=== PATIENT | female | born 2000 | race Caucasian/White ===

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

== ENCOUNTER 2023-10-13 07:39 | Inpatient (IN) ==
[2023-10-13] MEDS ORDERED: OXYTOCIN 30 UNITS/NSS 30 UNITS/500 ML BAG IV PRN ×2 (08:24→17:19)
[2023-10-13] MEDS ORDERED: LIDOCAINE 1% LOCAL 20 ML VIAL INFIL PRN (08:24)
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
[2023-10-13] MEDS: LACTATED RINGER'S 1,000 ML IV PRN (08:57)
--- OUTSIDE RECORDS SUMMARY | 2023-10-13 08:59 | External Medical Summary | Summary of Care ---
Author Name Unknown Organization [facility] Address [address] [place] [address] Phone [phone] Care Team Providers Care Patient Clerical Assistant Name Role Phone Kate Garces MD Primary Care Prov ider Reason for Visit * Reason Comments eRx-Medication Refill Encounter Details Date Type Department Care Team (Late st Contact Info) Description 10/09/2023 Refill Family Medicine [address] [phone] Mer Sanchez PA-C [address] [place] [address] [place] [id number] Current mild episode of major depressive disorder, unspecified whether recurrent (HCC) Allergies No known active allergiesdocumented as of this encounter (statuses as of 10/12/2023) Medications Medication Sig Dispensed Refills Start Date End Date Status Acetaminophen 500 MG Oral Tablet (Tylenol) Take 2 Tablets by mouth every 6 hours as needed for Pain, Moderate. 100 Tablet 07/08/2021 Active 6.75-0.2 MG Oral Tablet Take by mouth. Active Butenafine HCl 1 % External CreamIndications:T inea cruris Apply to groin once daily 30 g 03/03/2023 Active Iron-Vitamin C 65-125 MG Oral Tablet (Vitron C)Indications:Ante anemia complicating Take 1 Tablet by mouth in the morning and 1 Tablet before bedtime. 60 Tablet 3 06/29/2023 Active Vitamin B-12 1000 MCG Oral Tablet (Cyanocobalamin)In dications:Antepart um anemia complicating Take 1 Tablet by mouth in the morning. 30 Tablet 3 07/24/2023 Active buPROPion HCl 75 MG Oral Tablet (Wellbutrin)Indica tions:Current mild episode of major depressive disorder, unspecified whether recurrent (HCC) TAKE TWO TABLETS BY MOUTH IN THE MORNING 60 Tablet 10/12/2023 Active buPROPion HCl 75 MG Oral Tablet (Wellbutrin)Indica tions:Current mild episode of major depressive disorder, unspecified whether recurrent (HCC) Take 2 Tablets by mouth in the morning. 30 Tablet 5 12/23/2022 Discontinued documented as of this encounter (statuses as of 10/12/2023) Active Problems Problem Noted Date Diagnosed Date GBS (group B streptococcus) infection 09/28/2023 Elevated blood pressure affe cting in third trimester, antepartum 09/03/2023 Overview: BP 147/70 on 08/19/23 Iron deficiency anemia 08/05/2023 Antepartum anemia complicating 024 Overview: Hgb 10.6 at 24 weeks (checked due to elevated LFTs). Started BID iron. 10.7 at 28 wks, blood mgmt referral placed Urinary tract infection in m other during first trimester of 03/31/2023 Overview: GARIMA 04/01 negative Supervision of other normal , antepartu m 03/03/2023 Depression complicating , antepartum Current mild episode of major depressive disorde r 10/11/2021 Asthma in remission 08/26/2011 Estimated Date of Delivery Comme nts Yes 10/15/2023 Based on last me nstrual period of 01/08/2023 documented as of this encounter (statuses as of 10/12/2023) Resolved Problems Problem Noted Date Diagnosed Date Resolved Date Elevated LFTs 06/24/2023 09/15/2023 Overview: Hepatic Panel Results: Results for orders placed or performed in visit on 06/24/23 HEPATIC FUNCTION PANEL Result Value Ref Range Albumin 3.8 3.8 - 5.0 g/dL AST 37 (H) 10 - 35 U/L Alkaline Phosphatase 63 35 - 130 U/L ALT 66 (H) 10 - 35 U/L Bilirubin, Total 0.3 <=1.2 mg/dL Bilirubin, Direct <0.2 0.0 - 0.3 mg/dL Protein 6.4 6.0 - 8.3 g/dL Hypothyroid in , antepartum 03/03/2023 03/05/2023 Overview: Unsure when dx made, has never been on meds. TSH at [facility] Intermittent asthma with rel iever use up to twice per week 11/28/2010 08/26/2011 Other constipation 08/10/2008 2 Asthma with severity to be determined 03/13/2005 11/28/2010 Overview: ICD-10 update of inactive term Other allergic rhinitis 03/13/200508/09 Overview: ICD-10 update of inactive term documented as of this encounter (statuses as of 10/12/2023) Immunizations Name Administration Dates Next Due COVID-19 mRNA, LNP-s, No Pre serve, 2-Dose Series (HeatGenie) 02/18/2022 COVID-19, LNP-s, No Preserve , Chau-sucrose, Ages 12+ (Pfizer) 01/28/2022 DTaP Dipth/Tet/Acell Pertussis (Infanrix), Peds 12/06/2007 HPV Vaccine, 9-Valent 05/14/2018,11/10/2017 Hep A - Hepatitis A (ped/ado le, 1-18 Yrs) 05/14/2018,11/10/2017 IPV - Polio Virus Vaccine (Inact) 12/06/2007 MMR - Measles/Mumps/Rubella Vaccine 12/06/2007 Meningococcal Conjugate Vacc ine (Menactra/Menveo) 05/24/2015 Meningococcal MCV4O Conjugat e Vaccine (Menveo) 01/06/2019 Pneumococcal Conjugate Vacci ne, 20-valent ([id number]) 05/30/2022 Seasonal Influenza, PF, 6 M & above, IM , (FluLaval or Fluzone) 05/30/2022,03/15/2018 Seasonal Influenza, Split, I IV3, With Preserve, Inj 04/18/2010,02/02/2009,04/17/2008,03/15 TDAP (age 10 and older)(Boostrix) 07/23/2023, Varicella Vaccine (Chicken Pox) 12/06/2007 documented as of this encounter Social History Tobacco Use Types Packs/Day Years Used Date Smoking Tobacco: Former Cigarettes Smokeless Tobacco: Never Alcohol Use Standard Drinks/Week Comments No 0 (1 standard drink = 0.6 oz pur e alcohol) PHQ-2 Answer Date Recorded PHQ Adult Total Score 5 07/23/2023 Hunger Vital Sign Answer Date Recorded Within the past 12 months, y ou worried that your food would run out before you got the money to buy more. Never true 07/23/19 24 Within the past 12 months, t he food you bought just didn't last and you didn't have money to get more. Never true 07/23/2023 Mesa Depression Scale Answer Date Recorded Mesa Depression Scale Total 5 09/03/2023 The thought of harming myself has occurred to me . Never 09/03/2023 Estimated Date of Delivery Comme nts Yes 10/15/2023 Based on last me nstrual period of 01/08/2023 Sex and Gender Information Value Date Recorded Sex Assigned at Female 10/13/2022 8:50 AM EDT Gender Identity Female 10/13/2022 8:50 AM EDT Sexual Orientation Straight 10/13/2022 8: 50 AM EDT Job Start Date Occupation Industry Not on file Not on file Not on file documented as of this encounter Miscellaneous Notes * Telephone Encounter - Kate Garces MD - 10/12/2023 12:21 PM EDTSigned Prescriptions: Disp Refills buPROPion HCl 75 MG Oral Tablet (Wellbutri*60 Tab*0 Sig: TAKE TWO TABLETS BY MOUTH IN THE MORNING Authorizing Provider: KATE GARCES * Telephone Encounter - Janice Marin [facility] - 10/11/2023 2:26 PM EDT Pending Prescriptions: Disp Refills buPROPion HCl 75 MG Oral Tablet (Wellbutri*60 Tab*0 Sig: TAKE TWO TABLETS BY MOUTH IN THE MORNING * Telephone Encounter - Janice Marin [facility] - 10/11/2023 2:26 PM EDT Unable to authorize medication refills for pended medication(s) at this time. Part of the protocol criteria used for refill authorization was not satisfied. Patient currently . Please approveif appropriate. Thank you, Janice Marin, PharmD, NAYELY Clinical Pharmacist [facility]) 10/11/23 2:26 PM [phone] * Telephone Encounter - Estefany, [facility] - 10/11/2023 11:20 AM EDT Pending Prescriptions: Disp Refills buPROPion HCl 75 MG Oral Tablet [Pharmacy *30 Tab*0 Sig: TAKE TWO TABLETS BY MOUTH IN THE MORNING documented in this encounter Plan of Treatment Health Maintenance Due Date Last Done Comments Yearly Wellness Visit 10/11/2022 10/11/2021 , 08/31/2020, 01/06/2019, Additional history exists COVID-19 Vaccine (3 - 2022-2 4 season) 2023 02/18/2022, 01/28/2022 Influenza Vaccine (FLU shot) (Season Ended) 2024 05/30/2022, 03/15/2018, 04/18/2010, Additional history exists Gonorrhea / Chlamydia Screen 03/03/2024, 01/09/2022, 08/31/2020, Additional history exists DTaP,Tdap,and Td Vaccines (8 - Td or Tdap) 07/22/2033 07/23/2023, 05/24/2015, 12/06/2007, Additional history exists Hepatitis B Completed 03/07/2004, 03/12, 02/03/2003, Additional history exists GARDASIL-HPV IMMUNIZATION SERIES Completed 05/14/19, 11/10/2017 MENINGOCOCCAL (MENACTRA/MENVEO) Completed , 05/24/2015 Pneumococcal Vaccine: Pediat rics (0 to 5 Years) and At-Risk Patients (6 to 64 Years) Completed 05/30/2022 documented as of this encounter Medical Devices Not on filedocumented as of this encounter Visit Diagnoses Diagnosis Current mild episode of major depressive disorder, unspecified whether recurrent (HCC) documented in this encounter Care Teams Patient Clerical Assistant Relationship Specialty Start Date End Date Kate Garces MD [address] [place] [address] [place] Olivo [id number] PCP - General Family Medicine 10/21/21 documented as of this encounter
--- OUTSIDE RECORDS SUMMARY | 2023-10-13 09:00 | External Medical Summary ---
Author Name Unknown Address Unknown Organization K01:[place] [facility] [place] [facility] [place] [address] Laboratory Report Ordering Provider Test Date Status TON GARCIA 09/24/2023 11:15:56 Final Observation Date Value Abnormality Reference (Units ) Status WBC, Total 09/24/2023 11:15:56 14.68 Above high normal 4 .00-10.80 (K/uL) Final RBC 09/24/2023 11:15:56 3.36 3.85-5.15 (M/uL) Final Hemoglobin 09/24/2023 11:15:56 11.0 Below low normal 12 .0-15.3 (g/dL) Final Anemia reflex testing trigge rs on a HGB < 12.0 for Females and HGB < 13.0 for Males in accordance with the WHO Anemia Guidelines
Anemia reflex testing triggers on a HGB < 12.0 for Females and HGB < 13.0 for Males in accordance with the WHO Anemia Guidelines HCT 09/24/2023 11:15:56 33.2 Below low normal 36. 0-45.2 (%) Final MCV 09/24/2023 11:15:56 98.8 81.5-97.5 (fL) Final MCH 09/24/2023 11:15:56 32.7 27.0-34.0 (pg) Final MCHC 09/24/2023 11:15:56 33.1 32.0-36.0 (g/dL) Final RDW 09/24/2023 11:15:56 13.3 11.5-15.5 (%) Final Platelets 09/24/2023 11:15:56 251 140-400 (K /uL) Final MPV 09/24/2023 11:15:56 9.6 6.6-11.1 ( fL) Final Nucleated erythrocytes/100 leukocytes [Ratio] in Blood by Automated count 09/24/2023 11:15:56 0 <=0 (/100 WBCs) Final Performing Location [place] [facility] [place] [address] [facility] [address]
--- OUTSIDE RECORDS SUMMARY | 2023-10-13 09:00 | External Medical Summary ---
Author Name Unknown Address Unknown Organization K01:LABORATORY [facility] - [address] [place] [address] Laboratory Report Ordering Provider Test Date Status MICHEAL HUMPHREY 09/24/2023 11:15:56 Final Observation Date Value Abnormality Reference (Units ) Status Folic Acid 09/24/2023 11:15:56 >20.0 >4.5 (ng/ mL) Final Performing Location [facility] - [address] [place] [address]
--- OUTSIDE RECORDS SUMMARY | 2023-10-13 09:00 | External Medical Summary | Summary of Care ---
Author Name Unknown Organization [facility] Address [address] [place] [address] Phone [phone] Care Team Providers Care Edi Coordinator Name Role Phone Josephine Mtz MD Primary Care Prov ider Encounter Details Date Type Department Care Team (Late st Contact Info) Description 09/24/2023 Telephone Gynecology/Obstetrics [facility] [address] [facility] [place] [address] Lisset Zavala, [facility] [address] [place], [place] [id number] Allergies No known active allergiesdocumented as of this encounter (statuses as of 09/28/2023) Medications Medication Sig Dispensed Refills Start Date End Date Status Acetaminophen 500 MG Oral Tablet (Tylenol) Take 2 Tablets by mouth every 6 hours as needed for Pain, Moderate. 100 Tablet 07/08/2021 Active buPROPion HCl 75 MG Oral Tablet (Wellbutrin)Indicatio ns:Current mild episode of major depressive disorder, unspecified whether recurrent (HCC) Take 2 Tablets by mouth in the morning. 30 Tablet 5 12/23/2022 Active 6.75-0.2 MG Oral Tablet Take by mouth. Active Butenafine HCl 1 % External CreamIndications:Berenice a cruris Apply to groin once daily 30 g 03/03/2023 Active Iron-Vitamin C 65-125 MG Oral Tablet (Vitron C)Indications:Antepar judah anemia complicating Take 1 Tablet by mouth in the morning and 1 Tablet before bedtime. 60 Tablet 3 06/29/2023 Active Vitamin B-12 1000 MCG Oral Tablet (Cyanocobalamin)Indic ations:Antepartum anemia complicating Take 1 Tablet by mouth in the morning. 30 Tablet 3 07/24/2023 Active documented as of this encounter (statuses as of 09/28/2023) Active Problems Problem Noted Date Diagnosed Date [...] as of this encounter (statuses as of 09/28/2023) Resolved Problems Problem Noted Date Diagnosed Date [...] as of this encounter (statuses as of 09/28/2023) Immunizations Name Administration Dates Next Due COVID-19 mRNA, LNP-s, No Pre serve, 2-Dose Series ([employer]) 02/18/2022 COVID-19, LNP-s, No Preserve , Chau-sucrose, Ages 12+ (Pfizer) 01/28/2022 DTaP Dipth/Tet/Acell Pertussis (Infanrix), Peds 12/06/2007 HPV Vaccine, 9-Valent 05/14/2018,11/10/2017 Hep A - Hepatitis A (ped/ado le, 1-18 Yrs) 05/14/2018,11/10/2017 IPV - Polio Virus Vaccine (Inact) 12/06/2007 MMR - Measles/Mumps/Rubella Vaccine 12/06/2007 Meningococcal Conjugate Vacc ine (Menactra/Menveo) 05/24/2015 Meningococcal MCV4O Conjugat e Vaccine (Menveo) 01/06/2019 Pneumococcal Conjugate Vacci ne, 20-valent ([id number]) 05/30/2022 Seasonal Influenza, PF, 6 M & [...] money to get more. Never true 07/23/2023 [place] Depression Scale Answer Date Recorded [place] Depression Scale Total 5 09/03/2023 The thought [...] encounter Miscellaneous Notes * Telephone Encounter - Arti Ludwig LPN - 09/24/2023 4:51 PM EDT ----- Message from Lisset Zavala CNM sent at 09/24/2023 4:48 PM EDT ----- Please let patient know her ultrasound showed normal growth, normal fluid level, and baby was head down. Thanks! Lisset Zavala CNM documented in this encounter Plan of Treatment Upcoming Encounters Date Type Department Care Team (Late st Contact Info) Description 10/01/2023 9:30 AM EDT Pharmacy Pharmacy, [address] [address] [facility], [place] [address] [place] [address] 10/01/2023 10:45 AM EDT Office Visit Gynecology/Obstetrics [facility] [address] [place], [place] [address] Yessy Corona CRNP [address] [place] [address] 10/08/2023 10:45 AM EDT Office Visit Gynecology/Obstetrics [facility] [address] [place], [place] [address] Yessy Corona CRNP [address] [place], [place] [address] Health Maintenance Due Date Last Done Comments Yearly Wellness Visit 10/11/2022 10/11/2021 , 08/31/2020, 01/06/2019, Additional history exists COVID-19 Vaccine (2022-2 4 season) 2023 02/18/2022, 01/28/2022 Influenza Vaccine [...] Not on filedocumented as of this encounter Care Teams Edi Coordinator Relationship Specialty Start Date End Date Josephine Mtz MD [address] [place] [address] [place] [id number] PCP - General Family Medicine 10/21/21 documented as of this encounter
--- OUTSIDE RECORDS SUMMARY | 2023-10-13 09:00 | External Medical Summary | Summary of Care ---
Author Name Unknown Organization [facility] Address [address] [place] [address] Phone [phone] Care Team Providers Care Technology Education Teacher Name Role Phone Josephine Mtz MD Primary Care Prov ider Reason for Visit * Reason Comments Outpatient Testing Encounter Details Date Type Department Care Team (Late st Contact Info) Description 09/24/2023 11:20 AM EDT Laboratory Laboratory, [facility] [address] [place] [phone] [facility] [address] [place] [address] Iron deficiency anemia, unspecified iron deficiency anemia type; Elevated blood pressure affecting in third trimester, antepartum Allergies No known active allergiesdocumented as of this encounter (statuses as of 09/24/2023) Medications Medication Sig Dispensed Refills Start Date End Date Status Acetaminophen 500 MG Oral Tablet (Tylenol) Take 2 Tablets by mouth every 6 hours as needed for Pain, Moderate. 100 Tablet 0 07/08/2021 Active buPROPion HCl 75 MG Oral Tablet (Wellbutrin)Indicatio ns:Current mild episode of major depressive disorder, unspecified whether recurrent (HCC) Take 2 Tablets by mouth in the morning. 30 Tablet 5 12/23/2022 Active 6.75-0.2 MG Oral Tablet Take by mouth. 0 Active Butenafine HCl 1 % External CreamIndications:Berenice a cruris Apply to groin once daily 30 g 0 03/03/2023 Active Iron-Vitamin C 65-125 MG Oral Tablet (Vitron C)Indications:Antepar judah anemia complicating Take 1 Tablet by mouth in the morning and 1 Tablet before bedtime. 60 Tablet 3 06/29/2023 Active Vitamin B-12 1000 MCG Oral Tablet (Cyanocobalamin)Indic ations:Antepartum anemia complicating Take 1 Tablet by mouth in the morning. 30 Tablet 3 07/24/2023 Active documented as of this encounter (statuses as of 09/24/2023) Active Problems Problem Noted Date Diagnosed Date Elevated blood pressure affe cting in third [...] as of this encounter (statuses as of 09/24/2023) Resolved Problems Problem Noted Date Diagnosed Date [...] as of this encounter (statuses as of 09/24/2023) Immunizations Name Administration Dates Next Due COVID-19 mRNA, LNP-s, No Pre serve, 2-Dose Series ([employer]) 02/18/2022 COVID-19, LNP-s, No Preserve , Chau-sucrose, Ages 12+ ([employer]) 01/28/2022 DTaP Dipth/Tet/Acell Pertussis (Infanrix), Peds 12/06/2007 HPV Vaccine, 9-Valent 05/14/2018,11/10/2017 Hep A - Hepatitis A (ped/ado le, 1-18 Yrs) 05/14/2018,11/10/2017 IPV - Polio Virus Vaccine (Inact) 12/06/2007 MMR - Measles/Mumps/Rubella Vaccine 12/06/2007 Meningococcal Conjugate Vacc ine (Menactra/Menveo) 05/24/2015 Meningococcal MCV4O Conjugat e Vaccine (Menveo) 01/06/2019 Pneumococcal Conjugate Vacci ne, 20-valent ([id number]) 05/30/2022 Seasonal Influenza, PF, 6 M & [...] money to get more. Never true 07/23/2023 [place] Depression Scale Answer Date Recorded [place] Depression Scale Total 5 09/03/2023 The thought [...] on file documented as of this encounter Plan of Treatment Upcoming Encounters Date Type Department Care Team (Late st Contact Info) Description 09/24/2023 12:30 PM EDT Imaging Radiology [address] [place] [address] 09/30/2023 12:00 PM EDT Laboratory Laboratory [address] [place] [phone] [address] [place] [address] 10/01/2023 9:30 AM EDT Pharmacy Pharmacy, [address] [place] [address] [facility], [address] [address] 10/01/2023 10:45 AM EDT Office Visit Gynecology/Obstetrics [facility] [address] [facility] [place] [address] Yessy Corona CRNP [address] [place] [address] 10/08/2023 10:45 AM EDT Office Visit Gynecology/Obstetrics [facility] [address] [place] [address] Yessy Corona CRNP [address] [place] [address] Pending Results Name Type Priority Associated Diagnoses Date /Time IRON SCREEN, INCLUDING TIBC Lab Routine Iron deficiency anemia, unspecified iron deficiency anemia type 09/24/2023 11:15 AM EDT FERRITIN Lab Routine Iron deficiency anemia, unspecified iron deficiency anemia type 09/24/2023 11:15 AM EDT RETICULOCYTE PANEL Lab Routine Iron deficiency anemia, unspecified iron deficiency anemia type 09/24/2023 11:15 AM EDT FOLIC ACID Lab Routine Iron deficiency anemia, unspecified iron deficiency anemia type 09/24/2023 11:15 AM EDT VITAMIN B12 Lab Routine Iron deficiency anemia, unspecified iron deficiency anemia type 09/24/2023 11:15 AM EDT ALT Lab Routine Elevated blood pressure affecting in third trimester, antepartum 09/24/2023 11:15 AM EDT AST Lab Routine Elevated blood pressure affecting in third trimester, antepartum 09/24/2023 11:15 AM EDT Health Maintenance Due Date Last Done Comments [...] SERIES Completed 05/14/19, 11/10/2017 MENINGOCOCCAL (MENACTRA/MENVEO) Completed 9, 05/24/2015 Pneumococcal Vaccine: Pediat rics (0 to 5 Years) and At-Risk Patients (6 to 64 Years) Completed 05/30/2022 documented as of this encounter Medical Devices Not on filedocumented as of this encounter Visit Diagnoses Diagnosis Iron deficiency anemia, unspecified iron deficiency anemia type Elevated blood pressure affecting in third trimester, antepartum documented in this encounter Care Teams Technology Education Teacher Relationship Specialty Start Date End Date Josephine Mtz MD [address] [place] [address] [place] [address] PCP - General Family Medicine 10/21/21 documented as of this encounter
--- OUTSIDE RECORDS SUMMARY | 2023-10-13 09:00 | External Medical Summary | Summary of Care ---
Author Name Unknown Organization [facility] Address [address] [place] [address] Phone [phone] Care Team Providers Care Vehicle Modification Technician Name Role Phone Josephine Mtz MD Primary Care Prov ider Reason for Visit * Reason Comments Return Visit Encounter Details Date Type Department Care Team (Late st Contact Info) Description 10/08/2023 10:45 AM EDT Office Visit Gynecology/Obstetric s [facility] [address] [place] [address] Yessy Corona CRNP [address] [place] [address] Supervision of other normal , antepartum*; Depression complicating , antepartum; Urinary tract infection in mother during first trimester of ; Antepartum anemia complicating ; Elevated blood pressure affecting in third trimester, antepartum Allergies No known active allergiesdocumented as of this encounter (statuses as of 10/08/2023) Medications Medication Sig Dispensed Refills Start Date [...] C 65-125 MG Oral Tablet (Vitron C)Indications:Antepar ujdah anemia complicating Take 1 Tablet by mouth in the morning and 1 Tablet before bedtime. 60 Tablet 3 06/29/2023 Active Vitamin B-12 1000 MCG Oral Tablet (Cyanocobalamin)Indic ations:Antepartum anemia complicating Take 1 Tablet by mouth in the morning. 30 Tablet 3 07/24/2023 Active documented as of this encounter (statuses as of 10/08/2023) Active Problems Problem Noted Date Diagnosed Date [...] as of this encounter (statuses as of 10/08/2023) Resolved Problems Problem Noted Date Diagnosed Date [...] as of this encounter (statuses as of 10/08/2023) Immunizations Name Administration Dates Next Due COVID-19 mRNA, LNP-s, No Pre serve, 2-Dose Series ([employer]) 02/18/2022 COVID-19, LNP-s, No Preserve , Chau-sucrose, Ages 12+ (Pfizer) 01/28/2022 DTaP Dipth/Tet/Acell Pertussis (Infanrix), Peds 12/06/2007,03/07/2004,06/05/2003,04/07,02/03/2003 HIB Hep B - HIB Hepatitis B (Comvax) 03/07/2004, 04/07/2003,02/03/2003 HPV Vaccine, 9-Valent 05/14/2018,11/10/2017 Hep A - Hepatitis A (ped/ado le, 1-18 Yrs) 05/14/2018,11/10/2017 Hepatitis B, 0-19 yrs 2002 IPV - Polio Virus Vaccine (Inact) 2007,03/07/2004,04/07/2003,02/03 MMR - Measles/Mumps/Rubella Vaccine 12/06/2007,0 12/04/2003 Meningococcal Conjugate Vacc ine (Menactra/Menveo) 05/24/2015 Meningococcal MCV4O Conjugat e Vaccine (Menveo) 01/06/2019 Pneumococcal Conjugate Vacci ne, 20-valent ([id number]) 05/30/2022 Pneumococcal Conjugate Vacci ne, 7 Valent 06/05/2003,04/07/2003,02/03/2003 Seasonal Influenza, PF, 6 M & above, IM , (FluLaval or Fluzone) 05/30/2022,03/15/2018 Seasonal Influenza, Split, I IV3, No Preserve, Inj 03/13/2005,03/07/2004 Seasonal Influenza, Split, I IV3, With Preserve, Inj 04/18/2010,02/02/2009,04/17/2008,03/15 TDAP (age 10 and older)(Boostrix) 07/23/2023, Varicella Vaccine (Chicken Pox) 12/06/2007,12/03 documented as of this encounter Social History [...] money to get more. Never true 07/23/2023 [place] Depression Scale Answer Date Recorded [place] Depression Scale Total 5 09/03/2023 The thought [...] on file documented as of this encounter Last Filed Vital Signs Vital Sign Reading Time Taken Comments Blood Pressure 134/84 10/08/2023 11:13 AM EDT Pulse - - Temperature - - Respiratory Rate - - Oxygen Saturation - - Inhaled Oxygen Concentration - - Weight 71.2 kg (157 lb) 10/08/2023 10:45 AM EDT Height - - Body Mass Index - - documented in this encounter Progress Notes * Yessy Corona CRNP - 10/08/2023 11:05 AM EDT 39w Requesting IOL. Would like prior to EDC if possible. Discussed that typically IOL is postdates, which she is agreeable to. BP mildly elevated today, repeat somewhat improved. She woke up this morning with pelvic pain, now having menstrual cramping. Denies contractions, bleeding, LOF. IOL scheduled. ZIYAD Sierra * Stephenie Upton MED ASSIST - 10/08/2023 10:45 AM EDT 39w0d Denies vaginal bleeding/rom + movements + contractions + nausea Denies vomiting/headache Pt woken up by sharp pain this morning. Now cramping pretty consistently documented in this encounter Plan of Treatment Health Maintenance Due Date Last Done Comments Yearly Wellness Visit 10/11/2022 10/11/2021 , 08/31/2020, 01/06/2019, Additional history exists COVID-19 Vaccine (3 2022-2 4 season) 2023 02/18/2022, 01/28/2022 Influenza [...] as of this encounter Visit Diagnoses Diagnosis Supervision of other normal , antepartum- Primary Depression complicating , antepartum Mental disorders of mother, antepartum Urinary tract infection in mother during first trimester of Antepartum anemia complicating Anemia, antepartum Elevated blood pressure affecting in third trimester, antepartum documented in this encounter Care Teams Vehicle Modification Technician Relationship Specialty Start Date End Date Josephine Mtz MD [address] [place] [address] [place] [address] PCP - General Family Medicine 10/21/21 documented as of this encounter
--- OUTSIDE RECORDS SUMMARY | 2023-10-13 09:00 | External Medical Summary ---
Author Name Unknown Address Unknown Organization K01:LABORATORY [facility] [place] [address] [place] [address] Laboratory Report Ordering Provider Test Date Status MICHEAL HUMPHREY 09/24/2023 11:15:56 Final Observation Date Value Abnormality Reference (Units ) Status Vitamin B12 09/24/2023 11:15:56 876 280-1245 (pg/mL) Final Performing Location [facility] - [address] [place] [address]
--- OUTSIDE RECORDS SUMMARY | 2023-10-13 09:00 | External Medical Summary ---
Author Name Unknown Address Unknown Organization K01:LABORATORY [facility] [place] [facility] [address] [place] [address] Laboratory Report Ordering Provider Test Date Status TON GARCIA 09/24/2023 11:15:56 Final Observation Date Value Abnormality Reference (Units ) Status Creatinine 09/24/2023 11:15:56 0.6 0.5-1.0 (mg/dL) Final Glomerular filtration rate/1.73 sq M.predicted [Volume Rate/Area] in Serum, Plasma or Blood by Creatinine-based formula (CKD-EPI) 09/24/2023 11:15:56 >90 >=60 (mL/min) Final eGFR is calculated based on the CKD-EPI 2020 equation Performing Location LABORATORY [facility] [place] [address] [place] [address]
--- OUTSIDE RECORDS SUMMARY | 2023-10-13 09:00 | External Medical Summary | Summary of Care ---
Author Name Unknown Organization [facility] Address [address] [place] [address] Phone [phone] Care Team Providers Care Leak Hunter Name Role Phone Josephine Mtz MD Primary Care Prov ider Reason for Visit * Reason Comments Return Visit Encounter Details Date Type Department Care Team (Late st Contact Info) Description 10/01/2023 10:45 AM EDT Office Visit Gynecology/Obstetric s [facility] [address] [place] [address] Yessy Corona CRNP [address] [facility] [place] [address] Supervision of other normal , antepartum*; Depression complicating , antepartum; Urinary tract infection in mother during first trimester of ; Antepartum anemia complicating ; Elevated blood pressure affecting in third trimester, antepartum Allergies No known active allergiesdocumented as of this encounter (statuses as of 10/01/2023) Medications Medication Sig Dispensed Refills Start Date [...] as of this encounter (statuses as of 10/01/2023) Active Problems Problem Noted Date Diagnosed Date [...] as of this encounter (statuses as of 10/01/2023) Resolved Problems Problem Noted Date Diagnosed Date [...] as of this encounter (statuses as of 10/01/2023) Immunizations Name Administration Dates Next Due COVID-19 mRNA, LNP-s, No Pre serve, 2-Dose Series ([employer]) 02/18/2022 COVID-19, LNP-s, No Preserve , Chau-sucrose, Ages 12+ (Pfizer) 01/28/2022 DTaP Dipth/Tet/Acell Pertussis (Infanrix), Peds 12/06/2007 HPV Vaccine, 9-Valent 05/14/2018,11/10/2017 Hep A - Hepatitis A (ped/ado le, 1-18 Yrs) 05/14/2018,11/10/2017 IPV - Polio Virus Vaccine (Inact) 12/06/2007 MMR - Measles/Mumps/Rubella Vaccine 12/06/2007 Meningococcal Conjugate Vacc ine (Menactra/Menveo) 05/24/2015 Meningococcal MCV4O Conjugat e Vaccine (Menveo) 01/06/2019 Pneumococcal Conjugate Vacci ne, 20-valent ([id number]) 05/30/2022 Seasonal Influenza, PF, 6 M & [...] money to get more. Never true 07/23/2023 [place] Depression Scale Answer Date Recorded [place] Depression Scale Total 5 09/03/2023 The thought [...] Sign Reading Time Taken Comments Blood Pressure 128/82 10/01/2023 10:33 AM EDT Pulse - - Temperature - - Respiratory Rate - - Oxygen Saturation - - Inhaled Oxygen Concentration - - Weight 71.2 kg (157 lb) 10/01/2023 10:33 AM EDT Height 162.6 cm (5' 4") 10/01/2023 10:33 AM EDT Body Mass Index 26.95 10/01/2023 10:33 AM EDT documented in this encounter Progress Notes * Yessy Corona CRNP - 10/01/2023 10:44 AM EDT 38w Had some cramping and a pink tinge to discharge 4 days ago, none since. No red bleeding, no LOF. Denies contractions. Baby is active. Discussed contraceptive methods with pt today. ZIYAD Sierra documented in this encounter Nursing Notes * Ute Shi LPN - 10/01/2023 10:39 AM EDT 38w0d Some pink tinge with wiping and urinating on Thursday, some cramping, maybe ctx Thursday as well. Denies concerns today documented in this encounter Plan of Treatment Upcoming Encounters Date Type Department Care Team (Late st Contact Info) Description 10/08/2023 10:45 AM EDT Office Visit Gynecology/Obstetrics [facility] [address] [place] [address] Yessy Corona CRNP [address] [place] [address] Health Maintenance Due Date Last Done Comments [...] antepartum documented in this encounter Care Teams Leak Hunter Relationship Specialty Start Date End Date Josephine Mtz MD [address] [place] [address] [place] [phone] PCP - General Family Medicine 10/21/21 documented as of this encounter
--- OUTSIDE RECORDS SUMMARY | 2023-10-13 09:00 | External Medical Summary ---
Author Name Unknown Address Unknown Organization K01:[facility] [place] [address] [place] [address] Laboratory Report Ordering Provider Test Date Status TON GARCIA 09/24/2023 11:19:14 Final Normal: <150 mg/ g creatinine
High: 150-500 mg/g creatinine
Very High: >500 mg/g creatinine
Nephrotic: >3000 mg/g creatinine Observation Date Value Abnormality Reference (Units ) Status Protein/Creatinine [Ratio] in Urine 09/24/2023 11:19:14 164 Above high normal <150 (mg/g ) Final Protein, Urine 09/24/2023 11:19:14 10 (mg/dL) Final Creatinine, Urine 09/24/2023 11:19:14 61 (mg/dL) Final Performing Location LAB[facility]ATORY [facility] [place] [address] [place] [address]
--- OUTSIDE RECORDS SUMMARY | 2023-10-13 09:00 | External Medical Summary | Summary of Care ---
Author Name Unknown Organization [facility] Address [address] [place] [address] Phone [phone] Care Team Providers Care Crate Repairer Name Role Phone Josephine Mtz MD Primary Care Prov ider Reason for Visit * Reason Onset Date Comments Anemia Follow-Up 10/02/2023 Encounter Details Date Type Department Care Team (Late st Contact Info) Description 10/01/2023 9:30 AM EDT Pharmacy Pharmacy, [facility] [address] [place] [address] Clinic, Anemia [address] [place] [address] Iron deficiency anemia, unspecified iron deficiency anemia type* Allergies No known active allergiesdocumented as of this encounter (statuses as of 10/02/2023) Medications Medication Sig Dispensed Refills Start Date [...] as of this encounter (statuses as of 10/02/2023) Active Problems Problem Noted Date Diagnosed Date [...] as of this encounter (statuses as of 10/02/2023) Resolved Problems Problem Noted Date Diagnosed Date [...] as of this encounter (statuses as of 10/02/2023) Immunizations Name Administration Dates Next Due COVID-19 mRNA, LNP-s, No Pre serve, 2-Dose Series ([employer]) 02/18/2022 COVID-19, LNP-s, No Preserve , Chau-sucrose, Ages 12+ ([employer]) 01/28/2022 DTaP Dipth/Tet/Acell Pertussis (Infanrix), Peds 12/06/2007 HPV Vaccine, 9-Valent 05/14/2018,11/10/2017 Hep A - Hepatitis A (ped/ado le, 1-18 Yrs) 05/14/2018,11/10/2017 IPV - Polio Virus Vaccine (Inact) 12/06/2007 MMR - Measles/Mumps/Rubella Vaccine 12/06/2007 Meningococcal Conjugate Vacc ine (Menactra/Menveo) 05/24/2015 Meningococcal MCV4O Conjugat e Vaccine (Menveo) 01/06/2019 Pneumococcal Conjugate Vacci ne, 20-valent ([id number]) 05/30/2022 Seasonal Influenza, PF, 6 M & [...] money to get more. Never true 07/23/2023 [place] Depression Scale Answer Date Recorded [place] Depression Scale Total 5 09/03/2023 The thought [...] on file documented as of this encounter Progress Notes * Rafia Castano, [facility] - 10/02/2023 1:44 PM EDT Patient Phone Numbers Reviewed labs from 09/24/23. Hgb: 11 g/dL TSAT: 22 % Ferritin: 266 ng/mL FA: >20 B12: 336 GA: 38w1d MEG: 10/15/23 S/p Venofer 300 mg x 3 on 08/18, 08/26 and 09/01 Hgb and Iron studies within goal. Patient does not qualify for anemia pharmacologic intervention atthis time. Plan: Given late GA no further anemia intervention required. Anemia clinic will sign off Thank you for allowing us to participate in the care of this patient. Rafia Castano, PharmD [facility] Clinical Pharmacist 10/02/2023 1:45 PM Lab Results Component Value Date/Time HGB 11.0 (L) 09/24/2023 11:15 AM HGB 10.5 (L) 09/04/2023 10:19 AM HGB 10.7 (L) 07/23/2023 11:14 AM HGB 13.5 10/14/2022 12:00 AM HGB 12.7 10/23/2016 09:45 AM HGB 12.4 12/11/2006 10:56 AM HGB 11.7 09/04/2003 10:38 AM No results found for: "HEMOGLOBIN-OUTSIDE LAB" Results for orders placed or performed in visit on 09/24/23 IRON SCREEN, INCLUDING TIBC Result Value Ref Range Iron 93 33 - 151 ug/dL Iron Binding Capacity 415 250 - 425 ug/dL Transferrin Saturation Percent 22 15 - 55 % Results for orders placed or performed in visit on 09/04/23 IRON SCREEN, INCLUDING TIBC Result Value Ref Range Iron 114 33 - 151 ug/dL Iron Binding Capacity 404 250 - 425 ug/dL Transferrin Saturation Percent 28 15 - 55 % Results for orders placed or performed in visit on 07/23/23 IRON SCREEN, INCLUDING TIBC Result Value Ref Range Iron 55 33 - 151 ug/dL Iron Binding Capacity 466 (H) 250 - 425 ug/dL Transferrin Saturation Percent 12 (L) 15 - 55 % No results found for: "TRANSFERRIN SAT %-OUTSIDE LAB" Lab Results Component Value Date/Time FERRITIN - [facility] 266 (H) 09/24/2023 11:15 AM FERRITIN - [facility] 577 (H) 09/04/2023 10:19 AM FERRITIN - [facility] 18 07/23/2023 11:14 AM No results found for: "FERRITIN-OUTSIDE LAB" documented in this encounter Plan of Treatment Upcoming Encounters Date Type Department Care Team (Late st Contact Info) Description 10/08/2023 10:45 AM EDT Office Visit Gynecology/Obstetrics [facility] [address] [place] [address] Yessy Corona CRNP [address] [place] [address] Health Maintenance Due Date Last Done Comments [...] Iron deficiency anemia, unspecified iron deficiency anemia type- Primary documented in this encounter Care Teams Crate Repairer Relationship Specialty Start Date End Date Josephine Mtz MD [address] [place] [address] [place] [address] PCP - General Family Medicine 10/21/21 documented as of this encounter
--- OUTSIDE RECORDS SUMMARY | 2023-10-13 09:00 | External Medical Summary | Summary of Care ---
Author Name Unknown Organization [facility] Address [address] [place] [address] Phone [phone] Care Team Providers Care Diving Board Assembler Name Role Phone Josephine Mtz MD Primary Care Prov ider Reason for Visit * Reason Comments Return Visit Encounter Details Date Type Department Care Team (Late st Contact Info) Description 09/24/2023 10:45 AM EDT Office Visit Gynecology/Obstetric [facility] [address] [facility] [place] [address] Lisset Zavala, [facility] [address] [facility] [place] [address] Supervision of other normal , antepartum*; Depression complicating , antepartum; Antepartum anemia complicating ; Elevated blood pressure affecting in third trimester, antepartum; Uterine size date discrepancy Allergies No known active allergiesdocumented as of [...] mRNA, LNP-s, No Pre serve, 2-Dose Series ([employer]) 02/18/2022 COVID-19, LNP-s, No Preserve , Chau-sucrose, [...] (Menveo) 01/06/2019 Pneumococcal Conjugate Vacci ne, 20-valent ([id number]) 05/30/2022 Pneumococcal Conjugate Vacci ne, 7 Valent [...] money to get more. Never true 07/23/2023 [place] Depression Scale Answer Date Recorded [place] Depression Scale Total 5 09/03/2023 The thought [...] Sign Reading Time Taken Comments Blood Pressure 138/64 09/24/2023 10:36 AM EDT Pulse - - Temperature - - Respiratory Rate - - Oxygen Saturation - - Inhaled Oxygen Concentration - - Weight 69.9 kg (154 lb) 09/24/2023 10:36 AM EDT Height 162.6 cm (5' 4") 09/24/2023 10:36 AM EDT Body Mass Index 26.43 09/24/2023 10:36 AM EDT documented in this encounter Progress Notes * Lisset Zavala CNM - 09/24/2023 10:46 AM EDT Samuel Amador is a 22 year old female here for her routine OB appointment at 37w0d Her Estimated Date of Delivery: 10/15/23 REVIEW OF SYSTEMS: She affirms movement. Denies vaginal bleeding, LOF, contractions, and RUQ pain. Feeling occasional contractions but no consistent pattern. Desires cervical exam. Has had two headaches with seeing spots in the last week. Denies ALBRECHT and vision changes today. 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 Name of java jsf developer: Ute Shine LPN ASSESSMENT/PLAN: (O99.340, F32.A) Depression complicating , antepartum Plan: -Feels well on wellbutrin (O99.019) Antepartum anemia complicating Plan: -Vitron C PO BID (sometimes once daily) -Repeat CBC today -Hgb 10.5 on 09/04/23 (O16.3) Elevated blood pressure affecting in third trimester, antepartum Plan: ALT, AST, PROTEIN/ CREATININE RATIO, URINE -Repeat CBC as well as AST, ALT, and P/C ratio -Reviewed s/s of pre-eclampsia -BP 138/64 today (O26.849) Uterine size date discrepancy Plan: US PREG FOLLOW-UP EACH FETUS -Growth US ordered to be done today (Z34.83) Encounter for supervision of other normal , third trimester Plan: US PREG FOLLOW-UP EACH FETUS -reviewed labor precautions and kick counts -GBS swab collected today - RTO in 1 week Lisset Zavala CNM documented in this encounter Nursing Notes * Ute Shi LPN - 09/24/2023 10:42 AM EDT 37w0d GBS today, pt would like cervical check also Denies concerns * Ute Shi LPN - 09/24/2023 10:39 AM EDT 37w0d documented in this encounter Plan of Treatment Upcoming Encounters Date Type Department Care Team (Late st Contact Info) Description 09/24/2023 12:30 PM EDT Imaging Radiology [address] [place] [address] 09/30/2023 12:00 PM EDT Laboratory Laboratory [address] [place] [phone] [facility] [address] [place] [address] 10/01/2023 9:30 AM EDT Pharmacy Pharmacy, [place] [address] [place] [address] [facility], [place] [address] [place] [address] 10/01/2023 10:45 AM EDT Office Visit Gynecology/Obstetrics [facility] [address] [place] [address] Yessy Corona CRNP [address] [place] [address] 10/08/2023 10:45 AM EDT Office Visit Gynecology/Obstetrics Day[facility]ley [address] [place] [address] Yessy Corona CRNP [address] [place] [address] Pending Results Name Type Priority Associated Diagnoses Date /Time GROUP B STREP CULTURE/PCR Lab Routine Supervision of other normal , antepartum 09/24/2023 11:15 AM EDT ALT Lab Routine Elevated blood pressure affecting in third trimester, antepartum 09/24/2023 11:15 AM EDT AST Lab Routine Elevated blood pressure affecting in third trimester, antepartum 09/24/2023 11:15 AM EDT PROTEIN/ CREATININE RATIO, URINE Lab Routine Elevated blood pressure affecting in third trimester, antepartum 09/24/2023 11:19 AM EDT Scheduled Orders Name Type Priority Associated Diagnoses Orde r Schedule GROUP B STREP CULTURE/PCR Lab Routine Supervision of other normal , antepartum Expected: 09/24/2023, Expires: 09/23/2024 ALT Lab Routine Elevated blood pressure affecting in third trimester, antepartum Expected: 09/24/2023, Expires: 09/23/2024 AST Lab Routine Elevated blood pressure affecting in third trimester, antepartum Expected: 09/24/2023, Expires: 09/23/2024 PREG FOLLOW-UP EACH FETUS Medical Imaging Routine Uterine size date discrepancy Expected: 09/24/2023, Expires: 10/24/2024 Health Maintenance Due Date Last Done Comments [...] , antepartum Mental disorders of mother, antepartum Antepartum anemia complicating Anemia, antepartum Elevated blood pressure affecting in third trimester, antepartum Uterine size date discrepancy Uterine size date discrepancy, antepartum condition or complication documented in this encounter Care Teams Diving Board Assembler Relationship Specialty Start Date End Date Josephine Mtz MD [address] [place] [address] [place] [id number] PCP - General Family Medicine 10/21/21 documented as of this encounter
--- OUTSIDE RECORDS SUMMARY | 2023-10-13 09:00 | External Medical Summary | Summary of Care ---
Author Name Unknown Organization [facility] Address [address] [place] [address] Phone [phone] Care Team Providers Care Fiberglass Technician Name Role Phone Josephine Mtz MD Primary Care Prov ider Reason for Visit * Reason Onset Date Comments Test Results 09/25/2023 Encounter Details Date Type Department Care Team (Late st Contact Info) Description 09/25/2023 Telephone Gynecology/Obstetrics [facility] 132 [facility] [place] [address] Lisset Zavala, [facility] [address] [facility] [place] [address] Test Results Allergies No known active allergiesdocumented as of this encounter (statuses as of 09/25/2023) Medications Medication Sig Dispensed Refills Start Date [...] as of this encounter (statuses as of 09/25/2023) Active Problems Problem Noted Date Diagnosed Date [...] as of this encounter (statuses as of 09/25/2023) Resolved Problems Problem Noted Date Diagnosed Date [...] as of this encounter (statuses as of 09/25/2023) Immunizations Name Administration Dates Next Due COVID-19 mRNA, LNP-s, No Pre serve, 2-Dose Series ([employer]) 02/18/2022 COVID-19, LNP-s, No Preserve , Chau-sucrose, Ages 12+ ([employer]) 01/28/2022 DTaP Dipth/Tet/Acell Pertussis (Infanrix), Peds 12/06/2007 HPV Vaccine, 9-Valent 05/14/2018,11/10/2017 Hep A - Hepatitis A (ped/ado le, 1-18 Yrs) 05/14/2018,11/10/2017 IPV - Polio Virus Vaccine (Inact) 12/06/2007 MMR - Measles/Mumps/Rubella Vaccine 12/06/2007 Meningococcal Conjugate Vacc ine (Menactra/Menveo) 05/24/2015 Meningococcal MCV4O Conjugat e Vaccine (Menveo) 01/06/2019 Pneumococcal Conjugate Vacci ne, 20-valent ([id number]) 05/30/2022 Seasonal Influenza, PF, 6 M & [...] money to get more. Never true 07/23/2023 [place] Depression Scale Answer Date Recorded [place] Depression Scale Total 5 09/03/2023 The thought [...] encounter Miscellaneous Notes * Telephone Encounter - Rafia Beck RN - 09/25/2023 11:02 AM EDT Pt is aware. * Telephone Encounter - Ute Shi LPN - 09/25/2023 10:58 AM EDT ----- Message from Lisset Zavala CNM sent at 09/25/2023 10:44 AM EDT ----- Please let patient know her urine P/C ratio was normal, her platelets were normal, and her anemia is improving. Thanks! Lisset Zavala CNM documented in this encounter Plan of Treatment Upcoming Encounters Date Type Department Care Team (Late st Contact Info) Description 09/30/2023 12:00 PM EDT Laboratory Laboratory [address] [place] [phone] [place] [address] 10/01/2023 9:30 AM EDT Pharmacy Pharmacy, [phone] [id number] 10/01/2023 10:45 AM EDT Office Visit Gynecology/Obstetrics [facility] [address] [facility] [place] [address] Yessy Corona CRNP [address] [place] [address] 10/08/2023 10:45 AM EDT Office Visit Gynecology/Obstetrics [facility] [address] [place] [address] Yessy Corona CRNP [address] [place] [address] Health Maintenance Due Date Last Done Comments [...] filedocumented as of this encounter Care Teams Fiberglass Technician Relationship Specialty Start Date End Date Josephine Mtz MD [address] [place] [address] [place] [address] PCP - General Family Medicine 10/21/21 documented as of this encounter
--- OUTSIDE RECORDS SUMMARY | 2023-10-13 09:00 | External Medical Summary | Summary of Care ---
Author Name Unknown Organization [facility] Address [address] [place] [address] Phone [phone] Care Team Providers Care Recycle Coordinator Name Role Phone Josephine Mtz MD Primary Care Prov ider Reason for Visit * Reason Comments Return Visit Encounter Details Date Type Department Care Team (Late st Contact Info) Description 09/24/2023 10:45 AM EDT Office Visit Gynecology/Obstetric [facility] 132 [facility] [place] [address] Lisset Zavala, [facility] [address] [facility] [place] [address] Supervision of other normal , [...] mRNA, LNP-s, No Pre serve, 2-Dose Series ([employer]) 02/18/2022 COVID-19, LNP-s, No Preserve , Chau-sucrose, [...] (Menveo) 01/06/2019 Pneumococcal Conjugate Vacci ne, 20-valent ([id number]) 05/30/2022 Pneumococcal Conjugate Vacci ne, 7 Valent [...] money to get more. 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 Name of employee benefits specialist: Ute Shine LPN ASSESSMENT/PLAN: (O99.340, F32.A) Depression [...] Description 09/24/2023 11:20 AM EDT Laboratory Laboratory, [facility] 132 [facility] [place] [phone] [facility] [address] [facility] [place] [address] Iron deficiency anemia, unspecified iron deficiency anemia type; Elevated blood pressure affecting in third trimester, antepartum 09/24/2023 12:30 PM EDT Imaging Radiology [address] [place] [address] 09/30/2023 12:00 PM EDT Laboratory Laboratory [address] [place] [id number] [address] [place] [address] 10/01/2023 9:30 AM EDT [address] [place] [address] Clinic, Anemia [address] [facility] [place], [place] [address] 10/01/2023 10:45 AM EDT Office Visit Gynecology/Obstetric [facility] [address] [place], [place] [address] Yessy Corona CRNP [address] [place] [address] 10/08/2023 10:45 AM EDT Office Visit Gynecology/Obstetric [facility] [address] [place] [address] Yessy Corona CRNP [address] [place] [address] Pending Results Name Type Priority Associated Diagnoses Date /Time GROUP B STREP CULTURE/PCR Lab Routine Supervision of other normal , antepartum 09/24/2023 11:15 AM EDT Scheduled Orders Name Type Priority Associated Diagnoses Orde r Schedule GROUP B STREP CULTURE/PCR Lab Routine Supervision of other normal , antepartum Expected: 09/24/2023, Expires: 09/23/2024 ALT Lab Routine Elevated blood pressure affecting in third trimester, antepartum Expected: 09/24/2023, Expires: 09/23/2024 AST Lab Routine Elevated blood pressure affecting in third trimester, antepartum Expected: 09/24/2023, Expires: 09/23/2024 PROTEIN/ CREATININE RATIO, URINE Lab Routine Elevated blood pressure affecting in third trimester, antepartum Ordered: 09/24/2023 PREG FOLLOW-UP EACH FETUS Medical Imaging Routine [...] Additional history exists GARDASIL-HPV IMMUNIZATION SERIES Completed 05/14/19 19, 11/10/2017 MENINGOCOCCAL (MENACTRA/MENVEO) Completed , 05/24/2015 Pneumococcal [...] size date discrepancy, antepartum condition or complication Iron deficiency anemia, unspecified iron deficiency anemia type Elevated blood pressure affecting in third trimester, antepartum documented in this encounter Care Teams Recycle Coordinator Relationship Specialty Start Date End Date Josephine Mtz MD [address] [place] [address] [place] [address] PCP - General Family Medicine 10/21/21 documented as of this encounter
--- OUTSIDE RECORDS SUMMARY | 2023-10-13 09:00 | External Medical Summary | Summary of Care ---
Author Name Unknown Organization [facility] Address [address] [place] [address] Phone [phone] Care Team Providers Care Hot Die Press Feeder Name Role Phone Josephine Mtz MD Primary Care Prov ider Reason for Visit * Reason Comments Return Visit Encounter Details Date Type Department Care Team (Late st Contact Info) Description 10/08/2023 10:45 AM EDT Office Visit Gynecology/Obstetric s Day[facility] [address] [place] [address] Yessy Corona CRNP [address] [place] [address] Supervision of other normal , antepartum*; Depression [...] mRNA, LNP-s, No Pre serve, 2-Dose Series ([employer]) 02/18/2022 COVID-19, LNP-s, No Preserve , Chau-sucrose, [...] (Menveo) 01/06/2019 Pneumococcal Conjugate Vacci ne, 20-valent ([id number]) 05/30/2022 Pneumococcal Conjugate Vacci ne, 7 Valent [...] money to get more. Never true 07/23/2023 [place] Depression Scale Answer Date Recorded [place] Depression Scale Total 5 09/03/2023 The thought [...] antepartum documented in this encounter Care Teams Hot Die Press Feeder Relationship Specialty Start Date End Date Josephine Mtz MD [address] [place] [address] [place] [address] PCP - General Family Medicine 10/21/21 documented as of this encounter
--- OUTSIDE RECORDS SUMMARY | 2023-10-13 09:01 | External Medical Summary | Summary of Care ---
Author Name Unknown Organization [facility] Address [address] [place] [address] Phone [phone] Care Team Providers Care Preschool Program Director Name Role Phone Josephine Mtz MD Primary Care Prov ider Reason for Visit * Reason Comments IV Therapy Venofer. Encounter Details Date Type Department Care Team (Latest Contact Info) Description 09/02/2023 2:30 PM EDT Hem/Onc Treatment Hematology/Oncology Treatment, [address] [address] Ebony, Chair 11 Hem Onc Scene [address] [place] [address] Iron deficiency anemia, unspecified iron deficiency anemia type* Allergies No known active allergiesdocumented as of this encounter (statuses as of 09/19/2023) Medications Medication Sig Dispensed Refills Start Date [...] as of this encounter (statuses as of 09/19/2023) Active Problems Problem Noted Date Diagnosed Date Iron deficiency anemia 08/05/2023 Antepartum anemia complicating [...] as of this encounter (statuses as of 09/19/2023) Resolved Problems Problem Noted Date Diagnosed Date [...] as of this encounter (statuses as of 09/19/2023) Immunizations Name Administration Dates Next Due COVID-19 mRNA, LNP-s, No Pre serve, 2-Dose Series ([place]ago) 02/18/2022 COVID-19, LNP-s, No Preserve , Chau-sucrose, Ages 12+ (Pfizer) 01/28/2022 DTaP Dipth/Tet/Acell Pertussis (Infanrix), Peds 12/06/2007 HPV Vaccine, 9-Valent 05/14/2018,11/10/2017 Hep A - Hepatitis A (ped/ado le, 1-18 Yrs) 05/14/2018,11/10/2017 IPV - Polio Virus Vaccine (Inact) 12/06/2007 MMR - Measles/Mumps/Rubella Vaccine 12/06/2007 Meningococcal Conjugate Vacc ine (Menactra/Menveo) 05/24/2015 Meningococcal MCV4O Conjugat e Vaccine (Menveo) 01/06/2019 Pneumococcal Conjugate Vacci ne, 20-valent ([id number]) 05/30/2022 Seasonal Influenza, PF, 6 M & [...] money to buy more. Never true 07/23/19 Within the past 12 months, t he food you bought just didn't last and you didn't have money to get more. Never true 07/23/2023 [place] Depression Scale Answer Date Recorded [place] Depression Scale Total 5 09/03/2023 The thought [...] on file documented as of this encounter Nursing Notes * Marichuy Lozoya RN - 09/02/2023 4:19 PM EDT Goals: Patient will remain free from injury. Possible barriers to meeting goals: Fall risk d/t ambulation with IV pole. Stability of the patient: Moderately stable - low risk of patient condition declining or worsening Summary regarding today's goals: Met: Patient remained free of injury. Patient tolerated infusion well. Discharged in stable condition. * Marichuy Lozoya RN - 09/02/2023 3:34 PM EDT Chair 8. Patient arrived for Venofer infusion with no acute complaints. PIV established. Safety and Risk for Injury Patient will remain free from injury. Ensure appropriate safety devices are available. Provide and maintain safe environment. documented in this encounter Plan of Treatment Upcoming Encounters Date Type Department Care Team (Late st Contact Info) Description 09/24/2023 10:45 AM EDT Office Visit Gynecology/Obstetrics Dayami [facility]kinss [address] [place] [address] Lisset Zavala, [facility] 400 [facility] [place] [address] 09/30/2023 12:00 PM EDT Laboratory Laboratory [address] [place] [phone] [place] [address] 10/01/2023 9:30 AM EDT Pharmacy Pharmacy, [id number] [address] 10/01/2023 10:45 AM EDT Office Visit Gynecology/Obstetrics Dayami Whitley [address] [place] [address] Yessy Corona CRNP [address] [place] [address] 10/08/2023 10:45 AM EDT Office Visit Gynecology/Obstetrics [facility] [address] [place] [address] Yessy Corona CRNP [address] [place] [address] Health Maintenance Due Date Last Done Comments [...] Completed 05/14/19 19, 11/10/2017 MENINGOCOCCAL (MENACTRA/MENVEO) Completed 9, 05/24/2015 Pneumococcal Vaccine: Pediat rics (0 to 5 Years) and At-Risk Patients (6 to 64 Years) Completed 05/30/2022 documented as of this encounter Medical Devices Not on filedocumented as of this encounter Visit Diagnoses Diagnosis Iron deficiency anemia, unspecified iron deficiency anemia type- Primary documented in this encounter Administered Medications Inactive Administered Medications - up to 3 most recent administrations Medication Order MAR Action Action Date Dose Rate Site Iron Sucrose (Venofer) 300 mg in NSS 250 mL ivpb 300 mg, IV Piggyback, ONCE, 1 dose, On Thu09/02/23 at 1615, Administer over 90 Minutes Start Infusion 09/02/2023 2:45 PM EDT 300 mg 193.33 mL/hr NSS infusion 500 mL, Intravenous, at 50 mL/hr, CONTINUOUS, Starting on Thu09/02/23 at 1545, Until Thu09/02/23 at 2020 Start Infusion 09/02/2023 2:45 PM EDT 500 mL 50 mL/hr documented in this encounter Care Teams Preschool Program Director Relationship Specialty Start Date End Date Josephine Mtz MD [address] [place] [address] [place] [address] PCP - General Family Medicine 10/21/21 documented as of this encounter
--- OUTSIDE RECORDS SUMMARY | 2023-10-13 09:01 | External Medical Summary ---
Author Name Unknown Address Unknown Organization K01:[facility] - [address] [place] [address] Laboratory Report Ordering Provider Test Date Status TON GARCIA 09/24/2023 11:15:56 Final Observation Date Value Abnormality Reference (Units ) Status SYNC LEUKOCYTES IN BLOOD BY AUTOMATED COUNT 09/24/2023 11:15:56 14.68 Above high normal 4.00-10.80 (K/uL) Final Segs 09/24/2023 11:15:56 66.0 40.0-75.0 (%) Final Lymphs % 09/24/2023 11:15:56 14.0 Below low normal 18.0-42.0 (%) Final Monos 09/24/2023 11:15:56 9.0 1.0-11.0 (%) Final Eosinophils 09/24/2023 11:15:56 1.5 0.0-6.0 (%) Final Basos 09/24/2023 11:15:56 0.6 0.0-2.0 (%) Final Immature Granulocyte, Percent 09/24/2023 11:15:56 8.9 Above high normal 0.0-2.0 (%) Final Absolute Segs 09/24/2023 11:15:56 9.69 Above high normal 1.80-8.00 (K/uL) Final Lymphs, absolute 09/24/2023 11:15:56 2.06 1.20-5.40 (K/ul) Final Monos, Abs 09/24/2023 11:15:56 1.32 Above high normal 0.00-1.10 (K/uL) Final Eos, Abs 09/24/2023 11:15:56 0.22 0.00-0.70 (K/uL) Final Basos, Abs 09/24/2023 11:15:56 0.09 0.00-0.20 (K/uL) Final Immature Granulocytes, Number 09/24/2023 11:15:56 1.30 Above high normal 0.00-0.20 (K/uL) Final Performing Location [facility] - [facility] [place] [address]
--- OUTSIDE RECORDS SUMMARY | 2023-10-13 09:01 | External Medical Summary ---
Author Name Unknown Address Unknown Organization [id number]:[facility] - [address] [place] [address] Laboratory Report Ordering Provider Test Date Status TON GARCIA 09/24/2023 11:15:56 Final Observation Date Value Abnormality Reference (Units ) Status ALT (Alanine aminotransferase) 09/24/2023 11:15:56 12 10-35 (U/L) Final Performing Location [facility] 0 - [address] [place] [address]
--- OUTSIDE RECORDS SUMMARY | 2023-10-13 09:01 | External Medical Summary | Summary of Care ---
Author Name Unknown Organization [facility] Address [address] [place] [address] Phone [phone] Care Team Providers Care Solar Thermal Technician Name Role Phone Josephine Mtz MD Primary Care Prov ider Reason for Visit * Reason Comments Infusion Venofer Encounter Details Date Type Department Care Team (Latest Contact Info) Description 08/27/2023 2:30 PM EDT Hem/Onc Treatment Hematology/Oncology Treatment, [address] [address] Ebony, Chair 7 Hem Onc [facility] [address] [place], [place] [id number] Iron deficiency anemia, unspecified iron deficiency anemia type* Allergies No known active allergiesdocumented as of this encounter (statuses as of 09/17/2023) Medications Medication Sig Dispensed Refills Start Date [...] as of this encounter (statuses as of 09/17/2023) Active Problems Problem Noted Date Diagnosed Date [...] as of this encounter (statuses as of 09/17/2023) Resolved Problems Problem Noted Date Diagnosed Date [...] as of this encounter (statuses as of 09/17/2023) Immunizations Name Administration Dates Next Due COVID-19 mRNA, LNP-s, No Pre serve, 2-Dose Series ([employer]) 02/18/2022 COVID-19, LNP-s, No Preserve , Chau-sucrose, Ages 12+ (Pfizer) 01/28/2022 DTaP Dipth/Tet/Acell Pertussis (Infanrix), Peds 12/06/2007 HPV Vaccine, 9-Valent 05/14/2018,11/10/2017 Hep A - Hepatitis A (ped/ado le, 1-18 Yrs) 05/14/2018,11/10/2017 IPV - Polio Virus Vaccine (Inact) 12/06/2007 MMR - Measles/Mumps/Rubella Vaccine 12/06/2007 Meningococcal Conjugate Vacc ine (Menactra/Menveo) 05/24/2015 Meningococcal MCV4O Conjugat e Vaccine (Menveo) 01/06/2019 Pneumococcal Conjugate Vacci ne, 20-valent ([id number]) 05/30/2022 Seasonal Influenza, PF, 6 M & [...] money to get more. Never true 07/23/2023 [place] Depression Scale Answer Date Recorded [place] Depression Scale Total 11 07/23/2023 The thought of harming myself has occurred to me . Never 07/23/2023 Estimated Date of Delivery Comme nts Yes [...] Sign Reading Time Taken Comments Blood Pressure 135/89 08/27/2023 3:59 PM EDT Pulse 99 08/27/2023 3:59 PM EDT Temperature 36.7 C (98.1 F) 08/27/2023 3:59 PM ED T Respiratory Rate 18 08/27/2023 3:59 PM EDT Oxygen Saturation 98% 08/27/2023 3:59 PM EDT Inhaled Oxygen Concentration - - Weight - - Height - - Body Mass Index - - documented in this encounter Nursing Notes * Rafia Myers LPN - 08/27/2023 3:59 PM EDT 1435: Pt arrived for Venofer 2/3 infusion. PIV in R metacarpal. Pt tolerated well. VSS. No complaints at this time. 1620: Pt tolerated Venofer infusion well. PIV removed intact. Pt to return in one week. Discharged in stable condition. documented in this encounter Plan of Treatment Upcoming Encounters Date Type Department Care Team (Late st Contact Info) Description 09/24/2023 10:45 AM EDT Office Visit Gynecology/Obstetrics [facility] [address] [place] [address] Lisset Zavala, CN 400 [facility] [place] [address] 09/30/2023 12:00 PM EDT Laboratory Laboratory [address] [place] [phone] [place] [address] 10/01/2023 9:30 AM EDT Pharmacy Pharmacy, [address] [address] 10/01/2023 10:45 AM EDT Office Visit Gynecology/Obstetrics [facility] [address] [place] [address] Yessy Corona CRNP [address] [place] [address] 10/08/2023 10:45 AM EDT Office Visit Gynecology/Obstetrics [facility] [address] [place] [address] Yessy Corona CRNP [address] [place] [address] Health Maintenance Due Date Last Done Comments Yearly Wellness Visit 10/11/2022 10/11/2021 , 08/31/2020, 01/06/2019, Additional history exists COVID-19 Vaccine ( - 2022-2 4 season) 2023 02/18/2022, 01/28/2022 [...] mg, IV Piggyback, ONCE, 1 dose, On Yulisa 08/27/23 at 1600, Administer over 90 Minutes Start Infusion 08/27/2023 2:40 PM EDT 300 mg 166.67 mL/hr NSS infusion 500 mL, Intravenous, at 50 mL/hr, CONTINUOUS, Starting on Yulisa 08/27/23 at 1530, Until Yulisa 08/27/23 at 2022 Start Infusion 08/27/2023 2:40 PM EDT 500 mL 50 mL/hr documented in this encounter Care Teams Solar Thermal Technician Relationship Specialty Start Date End Date Josephine Mtz MD [address] [place] [address] [place] [address] PCP - General Family Medicine 10/21/21 documented as of this encounter
--- OUTSIDE RECORDS SUMMARY | 2023-10-13 09:01 | External Medical Summary | Summary of Care ---
Author Name Unknown Organization [facility] Address [address] [place] [address] Phone [phone] Care Team Providers Care Platemaker Name Role Phone Josephine Mtz MD Primary Care Prov ider Reason for Visit * Reason Comments Return Visit Encounter Details Date Type Department Care Team (Late st Contact Info) Description 09/15/2023 8:45 AM EDT Office Visit Gynecology/Obstetric s Dayami Whitley [address] [place] [address] Janny Brown CRNP [address] [place] [address] Supervision of other normal , antepartum*; Depression complicating , antepartum; Urinary tract infection in mother during first trimester of ; Antepartum anemia complicating Allergies No known active allergiesdocumented as of this encounter (statuses as of 09/15/2023) Medications Medication Sig Dispensed Refills Start Date [...] as of this encounter (statuses as of 09/15/2023) Active Problems Problem Noted Date Diagnosed Date [...] as of this encounter (statuses as of 09/15/2023) Resolved Problems Problem Noted Date Diagnosed Date [...] as of this encounter (statuses as of 09/15/2023) Immunizations Name Administration Dates Next Due COVID-19 mRNA, LNP-s, No Pre serve, 2-Dose Series ([employer] [place]) 02/18/2022 COVID-19, LNP-s, No Preserve , Chau-sucrose, Ages 12+ ([employer] [place]) 01/28/2022 DTaP Dipth/Tet/Acell Pertussis (Infanrix), Peds 12/06/2007 HPV Vaccine, 9-Valent 05/14/2018,11/10/2017 Hep A - Hepatitis A (ped/ado le, 1-18 Yrs) 05/14/2018,11/10/2017 IPV - Polio Virus Vaccine (Inact) 12/06/2007 MMR - Measles/Mumps/Rubella Vaccine 12/06/2007 Meningococcal Conjugate Vacc ine (Menactra/Menveo) 05/24/2015 Meningococcal MCV4O Conjugat e Vaccine (Menveo) 01/06/2019 Pneumococcal Conjugate Vacci ne, 20-valent ([id number]) 05/30/2022 Seasonal Influenza, PF, 6 M & [...] money to get more. Never true 07/23/2023 [place] Depression Scale Answer Date Recorded [place] Depression Scale Total 5 09/03/2023 The thought [...] Sign Reading Time Taken Comments Blood Pressure 118/78 09/15/2023 8:35 AM EDT Pulse - - Temperature - - Respiratory Rate - - Oxygen Saturation - - Inhaled Oxygen Concentration - - Weight 71.2 kg (157 lb) 09/15/2023 8:35 AM EDT Height - - Body Mass Index - - documented in this encounter Progress Notes * Janny Brown CRNP - 09/15/2023 8:41 AM EDT 35w5d Baby moving well. Denies leaking/bleeding. Some BH ctx - admits she could use more water. Encouraged to call the office if ctx do not resolve with rest/fluids, or become more painful/regular. BP normal today. Denies ALBRECHT or RUQ pain. Discussed lead pastor selection. Will likely use OCPs for contraception. +carpal tunnel, reviewed comfort measures with nurse. GBS next week. ZIYAD Pardo * Concetta Mathur LPN - 09/15/2023 8:36 AM EDT 35w5d Denies vaginal bleeding/rom + movement documented in this encounter Plan of Treatment Upcoming Encounters Date Type Department Care Team (Late st Contact Info) Description 09/24/2023 10:45 AM EDT Office Visit Gynecology/Obstetrics [facility] 132 [facility] [place] [address] Lisset Zavala CNM [address] [place], [place] [address] [address] 09/30/2023 12:00 PM EDT Laboratory Laboratory [address] [place] [phone] [place], [address] [place] [address] 10/01/2023 9:30 AM EDT Pharmacy Pharmacy, [place] [address] [place], [place] [phone] Clinic, An[place] [address] [place] [address] 10/01/2023 10:45 AM EDT Office Visit Gynecology/Obstetrics [facility] 132 [facility] [place] [address] Yessy Corona CRNP 132 [facility] [place] [address] 10/08/2023 10:45 AM EDT Office Visit Gynecology/Obstetrics Dayami Whitley [address] [place] [address] Yessy Corona CRNP [address] [place] [address] Health Maintenance Due Date Last Done Comments [...] trimester of Antepartum anemia complicating Anemia, antepartum documented in this encounter Care Teams Platemaker Relationship Specialty Start Date End Date Josephine Mtz MD [address] [place] [address] [place] [address] PCP - General Family Medicine 10/21/21 documented as of this encounter
--- OUTSIDE RECORDS SUMMARY | 2023-10-13 09:01 | External Medical Summary | Summary of Care ---
Author Name Unknown Organization [facility] Address [address] [place] [address] Phone [phone] Care Team Providers Care Behavioral Health Tech Name Role Phone Josephine Mtz MD Primary Care Prov ider Reason for Visit * Reason Comments Outpatient Testing Encounter Details Date Type Department Care Team (Late st Contact Info) Description 09/04/2023 10:30 AM EDT Laboratory Laboratory [address] [place] [phone] [address] [place] [address] Antepartum anemia complicating Allergies No known active allergiesdocumented as of this encounter (statuses as of 09/04/2023) Medications Medication Sig Dispensed Refills Start Date [...] as of this encounter (statuses as of 09/04/2023) Active Problems Problem Noted Date Diagnosed Date Elevated blood pressure affe cting in third trimester, antepartum 09/03/2023 Overview: BP 147/70 on 08/19/23 Iron deficiency anemia 08/05/2023 Antepartum anemia complicating 024 Overview: Hgb 10.6 at 24 weeks (checked due to elevated LFTs). Started BID iron. 10.7 at 28 wks, blood mgmt referral placed Elevated LFTs 06/24/2023 Overview: Hepatic Panel Results: Results for orders [...] mg/dL Protein 6.4 6.0 - 8.3 g/dL Urinary tract infection in m other during [...] as of this encounter (statuses as of 09/04/2023) Resolved Problems Problem Noted Date Diagnosed Date Resolved Date Hypothyroid in , antepartum 03/03/2023 03/05/2023 Overview: [...] as of this encounter (statuses as of 09/04/2023) Immunizations Name Administration Dates Next Due COVID-19 mRNA, LNP-s, No Pre serve, 2-Dose Series ([id number]) 02/18/2022 COVID-19, LNP-s, No Preserve , Chau-sucrose, Ages 12+ (Pfizer) 01/28/2022 DTaP Dipth/Tet/Acell Pertussis (Infanrix), Peds 12/06/2007 HPV Vaccine, 9-Valent 05/14/2018,11/10/2017 Hep A - Hepatitis A (ped/ado le, 1-18 Yrs) 05/14/2018,11/10/2017 IPV - Polio Virus Vaccine (Inact) 12/06/2007 MMR - Measles/Mumps/Rubella Vaccine 12/06/2007 Meningococcal Conjugate Vacc ine (Menactra/Menveo) 05/24/2015 Meningococcal MCV4O Conjugat e Vaccine (Menveo) 01/06/2019 Pneumococcal Conjugate Vacci ne, 20-valent ([id number]) 05/30/2022 Seasonal Influenza, PF, 6 M & [...] money to get more. Never true 07/23/2023 [place] Depression Scale Answer Date Recorded [place] Depression Scale Total 5 09/03/2023 The thought [...] Description 09/15/2023 8:45 AM EDT Office Visit Gynecology/Obstetrics [facility] [address] [place] [address] Janny Brown CRNP [address] [place] [address] 09/24/2023 10:45 AM EDT [facility] [address] [place] [address] Lisset Zavala, [place] [address] [place] [address] 09/30/2023 12:00 PM EDT Laboratory Laboratory [address] [place] [phone] [address] [place] [address] 10/01/2023 9:30 AM EDT Pharmacy Pharmacy, [place] [address] [place] [address] Clinic, [facility] [address] [place] [address] 10/01/2023 10:45 AM EDT Office Visit Gynecology/Obstetrics [facility] [address] [facility] [address] Yessy Corona CRNP [address] [place] [address] 10/08/2023 10:45 AM EDT Office Visit Gynecology/Obstetrics [facility] [address] [facility] [place] [address] Yessy Corona CRNP [address] [place] [address] Pending Results Name Type Priority Associated Diagnoses Date /Time CBC WITH WBC DIFFERENTIAL AND ANEMIA REFLEX WORKUP Lab Routine Antepartum anemia complicating 09/04/2023 10:19 AM EDT ANEMIA CBC Lab Routine Antepartum anemia complicating 09/04/2023 10:19 AM EDT DIFFERENTIAL, AUTOMATED Lab Routine Antepartum anemia complicating 09/04/2023 10:19 AM EDT ANEMIA REFLEX CHEMISTRY HOLD Lab Routine Antepartum anemia complicating 09/04/2023 10:19 AM EDT Health Maintenance Due Date Last Done Comments Yearly Wellness Visit 10/11/2022 10/11/2021 , 08/31/2020, 01/06/2019, Additional history exists COVID-19 Vaccine (2022- 4 season) 2023 02/18/2022, 01/28/2022 Influenza Vaccine [...] as of this encounter Visit Diagnoses Diagnosis Antepartum anemia complicating Anemia, antepartum documented in this encounter Care Teams Behavioral Health Tech Relationship Specialty Start Date End Date Josephine Mtz MD [address] [place] [address] [place] [address] PCP - General Family Medicine 10/21/21 documented as of this encounter
--- OUTSIDE RECORDS SUMMARY | 2023-10-13 09:01 | External Medical Summary ---
Author Name Unknown Address Unknown Organization K0G:[facility] - [address] [place] [address] Laboratory Report Ordering Provider Test Date Status TON GARCIA 09/24/2023 11:15:56 Final Observation Date Value Abnormality Reference (Units ) Status AST (Aspartate aminotransferase) 09/24/2023 11:15:56 18 10-35 (U/L) Final Performing Location [facility]-[address] 0 - [address] [place] [address]
--- OUTSIDE RECORDS SUMMARY | 2023-10-13 09:01 | External Medical Summary ---
Author Name Unknown Address Unknown Organization K01:[facility] [place] - [facility] [place] [address] Laboratory Report Ordering Provider Test Date Status TON GARCIA 09/04/2023 10:19:29 Final Observation Date Value Abnormality Reference (Units ) Status Retic, % (auto) 09/04/2023 10:19:29 3.10 Above high normal 0.80-1.90 (%) Final Reticulocytes, Absolute 09/04/2023 10:19:29 97.7 31.3-100.1 (K/uL) Final Reticulocyte fraction, immature 09/04/2023 10:19:29 22.9 Above high normal 2.5-20.6 (%) Final Reticulocyte HGB 09/04/2023 10:19:29 36.3 29.7-37.4 (pg) Final Performing Location [facility] [place] - [facility] [place] [address]
--- OUTSIDE RECORDS SUMMARY | 2023-10-13 09:01 | External Medical Summary ---
Author Name Unknown Address Unknown Organization K01:[facility] - [address] [place] [address] Laboratory Report Ordering Provider Test Date Status KAMMICHEAL 09/24/2023 11:15:56 Final Observation Date Value Abnormality Reference (Units ) Status Iron 09/24/2023 11:15:56 93 33-151 (ug /dL) Final Iron-binding capacity 09/24/2023 11:15:56 415 250-425 (ug/dL) Final Transferrin Sat % 09/24/2023 11:15:56 22 15 -55 (%) Final Performing Location LAB[facility]ATORY [facility] - [address] [place] [address]
--- OUTSIDE RECORDS SUMMARY | 2023-10-13 09:01 | External Medical Summary ---
Author Name Unknown Address Unknown Organization K01:[facility] - [address] [facility] [address] Laboratory Report Ordering Provider Test Date Status TON GARCIA 09/04/2023 10:19:29 Final Observation Date Value Abnormality Reference (Units ) Status Iron 09/04/2023 10:19:29 114 33-151 (ug /dL) Final Iron-binding capacity 09/04/2023 10:19:29 404 250-425 (ug/dL) Final Transferrin Sat % 09/04/2023 10:19:29 28 15 -55 (%) Final Performing Location [facility] - [address] [facility] [address]
--- OUTSIDE RECORDS SUMMARY | 2023-10-13 09:01 | External Medical Summary | Summary of Care ---
Author Name Unknown Organization [facility] Address [address] [place] [address] Phone [phone] Care Team Providers Care Card Filer Name Role Phone Josephine Mtz MD Primary Care Prov ider Reason for Visit * Reason Comments Infusion Venofer 05/13 Encounter Details Date Type Department Care Team (Latest Contact Info) Description 08/19/2023 2:45 PM EDT Hem/Onc Treatment Hematology/Oncology Treatment, [address] [address] Ebony, Chair 9 Hem Onc Scene [address] [place] [address] Iron deficiency anemia, unspecified iron deficiency anemia type* Allergies No known active allergiesdocumented as of this encounter (statuses as of 09/21/2023) Medications Medication Sig Dispensed Refills Start Date [...] as of this encounter (statuses as of 09/21/2023) Active Problems Problem Noted Date Diagnosed Date [...] as of this encounter (statuses as of 09/21/2023) Resolved Problems Problem Noted Date Diagnosed Date [...] as of this encounter (statuses as of 09/21/2023) Immunizations Name Administration Dates Next Due COVID-19 mRNA, LNP-s, No Pre serve, 2-Dose Series (Trutap) 02/18/2022 COVID-19, LNP-s, No Preserve , Chau-sucrose, Ages 12+ (Pfizer) 01/28/2022 DTaP Dipth/Tet/Acell Pertussis (Infanrix), Peds 12/06/2007 HPV Vaccine, 9-Valent 05/14/2018,11/10/2017 Hep A - Hepatitis A (ped/ado le, 1-18 Yrs) 05/14/2018,11/10/2017 IPV - Polio Virus Vaccine (Inact) 12/06/2007 MMR - Measles/Mumps/Rubella Vaccine 12/06/2007 Meningococcal Conjugate Vacc ine (Menactra/Menveo) 05/24/2015 Meningococcal MCV4O Conjugat e Vaccine (Menveo) 01/06/2019 Pneumococcal Conjugate Vacci ne, 20-valent ([id number]) 05/30/2022 Seasonal Influenza, PF, 6 M & [...] money to get more. Never true 07/23/2023 [place] Depression Scale Answer Date Recorded [place] Depression Scale Total 11 07/23/2023 The thought [...] Sign Reading Time Taken Comments Blood Pressure 147/70 08/19/2023 3:24 PM EDT Pulse 86 08/19/2023 3:24 PM EDT Temperature 37 C (98.6 F) 08/19/2023 3:24 PM EDT Respiratory Rate 18 08/19/2023 3:24 PM EDT Oxygen Saturation 98% 08/19/2023 3:24 PM EDT Inhaled Oxygen Concentration - - Weight - - Height - - Body Mass Index - - documented in this encounter Nursing Notes * Brianda King RN - 08/19/2023 4:46 PM EDT Safety and Risk for Injury Patient will remain free from injury. Ensure appropriate safety devices are available. Provide and maintain safe environment. Goals: Patient will remain free from injury. Possible barriers to meeting goals: ambulating with IV pole Stability of the patient: Moderately stable - low risk of patient condition declining or worsening Summary regarding today's goals: Met: pt remained free of harm today Patient tolerated treatment well without any acute issues or problems. Patient left facility in stable condition and denied any further needs. * Rafia Myers LPN - 08/19/2023 3:27 PM EDT 1455: Chair 12. Pt arrived for Venofer 05/13. PIV in R metacarpal. Pt tolerated well. VSS. No complaints at this time. documented in this encounter Plan of Treatment Upcoming Encounters Date Type Department Care Team (Late st Contact Info) Description 09/24/2023 10:45 AM EDT [facility] [address] [facility] [place] [address] Lisset Zavala CNM [address] [place], [place] [address]ha[place] [address] 09/30/2023 12:00 PM EDT Laboratory Laboratory [address] [place] [address] [place] [address] 10/01/2023 9:30 AM EDT Pharmacy Pharmacy, [place] [address] [place], [place] [phone] Clinic, [facility] [address] [place] [address] 10/01/2023 10:45 AM EDT [facility] [place] [address] Yessy Corona CRNP [address] [place] [address] 10/08/2023 10:45 AM EDT Office [facility] [address] [place] [address] Yessy Corona CRNP 132 [place] [address] Health Maintenance Due Date Last Done Comments [...] mg, IV Piggyback, ONCE, 1 dose, On Thu08/19/23 at 1630, Administer over 90 Minutes Start Infusion 08/19/2023 2:57 PM EDT 300 mg 166.67 mL/hr NSS infusion 500 mL, Intravenous, at 50 mL/hr, CONTINUOUS, Starting on Thu08/19/23 at 1600, Until Yulisa 08/20/23 at 0159 Start Infusion 08/19/2023 2:57 PM EDT 500 mL 50 mL/hr documented in this encounter Care Teams Card Filer Relationship Specialty Start Date End Date Josephine Mtz MD [address] [place] [address] [place] [address] PCP - General Family Medicine 10/21/21 documented as of this encounter
--- OUTSIDE RECORDS SUMMARY | 2023-10-13 09:01 | External Medical Summary | Summary of Care ---
Author Name Unknown Organization [facility] Address [address] [place] [address] Phone [phone] Care Team Providers Care Valet Attendant Name Role Phone Josephine Mtz MD Primary Care Prov ider Reason for Referral * (Within 10 days (routine)) Specialty Diagnoses / Procedures Referred By Spencer t Referred To Contact Lisset Zavala CNM [address] [place] [address] Referral ID Status Reason Start Date Expiration Date Visits Re quested Visits Authorized Question Answer Referral Priority Within 10 days (routine) Where should this appointment be scheduled? [facility] Encounter Details Date Type Department Care Team (Late st Contact Info) Description 09/08/[address] [facility] Gynecology and Obstetrics [address] [place], [place] [phone] Lisset Zavala CNM [address] [place], [place] [phone] Allergies No known active allergiesdocumented as of this encounter (statuses as of 09/08/2023) Medications Medication Sig Dispensed Refills Start Date [...] as of this encounter (statuses as of 09/08/2023) Active Problems Problem Noted Date Diagnosed Date [...] as of this encounter (statuses as of 09/08/2023) Resolved Problems Problem Noted Date Diagnosed Date [...] as of this encounter (statuses as of 09/08/2023) Immunizations Name Administration Dates Next Due COVID-19 mRNA, LNP-s, No Pre serve, 2-Dose Series (ApiFix) 02/18/2022 COVID-19, LNP-s, No Preserve , Chau-sucrose, Ages 12+ (ApiFix) 01/28/2022 DTaP Dipth/Tet/Acell Pertussis (Infanrix), Peds 12/06/2007 HPV Vaccine, 9-Valent 05/14/2018,11/10/2017 Hep A - Hepatitis A (ped/ado le, 1-18 Yrs) 05/14/2018,11/10/2017 IPV - Polio Virus Vaccine (Inact) 12/06/2007 MMR - Measles/Mumps/Rubella Vaccine 12/06/2007 Meningococcal Conjugate Vacc ine (Menactra/Menveo) 05/24/2015 Meningococcal MCV4O Conjugat e Vaccine (Menveo) 01/06/2019 Pneumococcal Conjugate Vacci ne, 20-valent ([id number]) 05/30/2022 Seasonal Influenza, PF, 6 M & [...] money to get more. Never true 07/23/2023 [place] Depression Scale Answer Date Recorded [place] Depression Scale Total 5 09/03/2023 The thought [...] Telephone Encounter - Rafia Beck RN - 09/08/2023 10:25 AM EDT Spoke with pt. She is aware and agreeable. Will await call back regarding hematology and blood management. * Telephone Encounter - Lisset Zavala CNM - 09/08/2023 9:48 AM EDT Please let patient know her CBC shows worsening anemia. I have placed a blood management referral. I have also placed an ask a doc referral to hematology to confirm that her other CBC abnormalities (toxic granulation, myelocytes, and metamyelocytes) are related and do not require further workup. Will let patient know once hematology responds. Please let patient know her growth ultrasound was normal. Thanks! Lisset Zavala CNM documented in this encounter Plan of Treatment Upcoming Encounters Date Type Department Care Team (Late st Contact Info) Description 09/15/2023 8:45 AM EDT [facility] [address] [place] [address] [place], ZIYAD Rivera [address] [facility] [place] [address] 09/24/2023 10:45 AM EDT Office Visit [facility] [place] [address] [facility] [place] [address] Lisset Zavala CNM [address] [place], [place] [address]ha[place] [address] 09/30/2023 12:00 PM EDT Laboratory Laboratory [address] [place] [phone] [place], Lab [address] [place] [address] 10/01/2023 9:30 AM EDT Pharmacy Pharmacy, [place] [address] [place], [place] [phone] Clinic, Anemia [address] [place] [address] 10/01/2023 10:45 AM EDT Office Visit Gynecology/Obstetrics [facility] [address] [place] [address] Yessy Corona CRNP [address] [place] [address] 10/08/2023 10:45 AM EDT Office Visit Gynecology/Obstetrics Dayami Whitley [address] [place] [address] Yessy Corona CRNP [address] [place] [address] Scheduled Referrals Name Type Priority Associated Diagnoses Orde r Schedule BLOOD MANAGEMENT REFERRAL Referral Within 10 days (routine) Antepartum anemia complicating Ordered: 09/08/2023 Health Maintenance Due Date Last Done Comments [...] encounter Visit Diagnoses Diagnosis Antepartum anemia complicating - Primary Anemia, antepartum documented in this encounter Care Teams Valet Attendant Relationship Specialty Start Date End Date Josephine Mtz MD [address] [place] [address] [place] [phone] PCP - General Family Medicine 10/21/21 documented as of this encounter
--- OUTSIDE RECORDS SUMMARY | 2023-10-13 09:01 | External Medical Summary ---
Author Name Unknown Address Unknown Organization K01:[facility] [place] [facility] [address] [facility] [address] [facility] [address] Laboratory Report Ordering Provider Test Date Status TON GARCIA 09/24/2023 11:15:24 Final Observation Date Value Abnormality Reference (Units ) Status Streptococcus agalactiae DNA [Presence] in Specimen by HAYDEN with probe detection 09/24/2023 11:15:24 Positive Abnormal Negative Final Group B Streptococcus detect ed by culture-enhanced PCR (amplified probe).
The collection of vaginal/rectal swab specimen combinations (FDA approved specimen type) is optimal for the detection of Group B Streptococcus. Single source collection (vaginal only or rectal only) or alternate specimen sources may lead to false negative results. Performing Location [facility] [place] [address] [facility] [place] [address]
--- OUTSIDE RECORDS SUMMARY | 2023-10-13 09:01 | External Medical Summary ---
Author Name Unknown Address Unknown Organization K01:[facility] [place] [facility] [place] [address] Laboratory Report Ordering Provider Test Date Status MICHEAL HUMPHREY 09/24/2023 11:15:56 Final Observation Date Value Abnormality Reference (Units ) Status Retic, % (auto) 09/24/2023 11:15:56 2.67 Above high normal 0.80-1.90 (%) Final Reticulocytes, Absolute 09/24/2023 11:15:56 89.7 31.3-100.1 (K/uL) Final Reticulocyte fraction, immature 09/24/2023 11:15:56 28.2 Above high normal 2.5-20.6 (%) Final Reticulocyte HGB 09/24/2023 11:15:56 35.3 29.7-37.4 (pg) Final Performing Location LABORATORY [facility] [place] - [address] [place] [address]
--- OUTSIDE RECORDS SUMMARY | 2023-10-13 09:01 | External Medical Summary | Summary of Care ---
Author Name Unknown Organization [facility] Address [address] [place] [address] Phone [phone] Care Team Providers Care Repair Miller Name Role Phone Josephine Mtz MD Primary Care Prov ider Encounter Details Date Type Department Care Team (Late st Contact Info) Description 09/08/2023 Documentation Patient Blood Management, [address] [address] Jayesh Kevin, RN Allergies No known active allergiesdocumented as of [...] mRNA, LNP-s, No Pre serve, 2-Dose Series ([employer]) 02/18/2022 COVID-19, LNP-s, No Preserve , Chau-sucrose, Ages 12+ (Pfizer) 01/28/2022 DTaP Dipth/Tet/Acell Pertussis (Infanrix), Peds 12/06/2007 HPV Vaccine, 9-Valent 05/14/2018,11/10/2017 Hep A - Hepatitis A (ped/ado le, 1-18 Yrs) 05/14/2018,11/10/2017 IPV - Polio Virus Vaccine (Inact) 12/06/2007 MMR - Measles/Mumps/Rubella Vaccine 12/06/2007 Meningococcal Conjugate Vacc ine (Menactra/Menveo) 05/24/2015 Meningococcal MCV4O Conjugat e Vaccine (Menveo) 01/06/2019 Pneumococcal Conjugate Vacci ne, 20-valent ([id number]) 05/30/2022 Seasonal Influenza, PF, 6 M & [...] money to get more. Never true 07/23/2023 [place] Depression Scale Answer Date Recorded [place] Depression Scale Total 5 09/03/2023 The thought [...] as of this encounter Progress Notes * Jayesh Kevin RN - 09/08/2023 10:18 AM EDT New PBM referral received. Previous PBM referral from 07/23 resulted in referral to the anemia clinic. Patient currently following with and being managed by the anemia clinic. Will defer to them. Signing off. documented in this encounter Plan of Treatment Upcoming Encounters Date Type Department Care Team (Late st Contact Info) Description 09/15/2023 8:45 AM EDT Office Visit Gynecology/Obstetrics Dayami Whitley 132 [place] [address] Janny Brown CRNP 132 [place] [address] 09/24/2023 10:45 AM EDT Office Visit Gynecology/Obstetrics Dayami Whitley [address] [place] [address] Lisset Zavala, ERIK [address] [place] [address] 09/30/2023 12:00 PM EDT Laboratory Laboratory [address] [place] [phone] [place], Lab [address] [place] [address] 10/01/2023 9:30 AM EDT Pharmacy Pharmacy, [address] [phone] Clinic, [address] [phone] 10/01/2023 10:45 AM EDT Office Visit Gynecology/Obstetrics [facility] [address] [facility] [place] [address] Yessy Corona CRNP [facility] [address] 10/08/2023 10:45 AM EDT Office Visit Gynecology/Obstetrics [facility] 132 [facility] [place] [address] Yessy Corona CRNP [address] [facility] [place] [address] Health Maintenance Due Date Last Done Comments [...] filedocumented as of this encounter Care Teams Repair Miller Relationship Specialty Start Date End Date Josephine Mtz MD [address] [place] [address] [place] [address] PCP - General Family Medicine 10/21/21 documented as of this encounter
--- OUTSIDE RECORDS SUMMARY | 2023-10-13 09:01 | External Medical Summary ---
Author Name Unknown Address Unknown Organization K01:LABORATORY [facility] - [address] [place] [address] Laboratory Report Ordering Provider Test Date Status MICHEAL HUMPHREY 09/24/2023 11:15:56 Final Observation Date Value Abnormality Reference (Units ) Status Ferritin 09/24/2023 11:15:56 266 Above high normal 13 -150 (ng/mL) Final Performing Location LAB[facility]ATORY [facility] - [address] [place] [address]
--- OUTSIDE RECORDS SUMMARY | 2023-10-13 09:02 | External Medical Summary ---
Author Name Unknown Address Unknown Organization K01:[facility] - [address] [facility] [address] Laboratory Report Ordering Provider Test Date Status TON GARCIA 09/04/2023 10:19:29 Final Observation Date Value Abnormality Reference (Units ) Status SYNC LEUKOCYTES IN BLOOD BY AUTOMATED COUNT 09/04/2023 10:19:29 12.64 Above high normal 4.00-10.80 (K/uL) Final Neutrophils/100 leukocytes in Blood by Manual count 09/04/2023 10:19:29 75.0 40.0-75.0 (%) Final Lymphocytes/100 leukocytes in Blood by Manual count 09/04/2023 10:19:29 15.0 Below low normal 18.0-42.0 (%) Final Monocytes/100 leukocytes in Blood by Manual count 09/04/2023 10:19:29 4.0 1.0-11.0 (%) Final Basophils/100 leukocytes in Blood by Manual count 09/04/2023 10:19:29 1.0 0.0-2.0 (%) Final Metamyelocytes/100 leukocytes in Blood by Manual count 09/04/2023 10:19:29 2.0 Above high normal <=0.0 (%) Final Myelocytes/100 leukocytes in Blood by Manual count 09/04/2023 10:19:29 3.0 Above high normal <=0.0 (%) Final Neutrophils [#/volume] in Blood by Manual count 09/04/2023 10:19:29 9.48 Above high normal 1.80-8.00 (K/uL) Final Lymphocytes [#/volume] in Blood by Manual count 09/04/2023 10:19:29 1.90 1.20-5.40 (K/uL) Final Monocytes [#/volume] in Blood by Manual count 09/04/2023 10:19:29 0.51 0.00-1.10 (K/uL) Final Basophils [#/volume] in Blood by Manual count 09/04/2023 10:: 0.13 0.00-0.20 (K/uL) Final Metamyelocytes [#/volume] in Blood by Manual count 09/04/2023 10:: 0.25 Above high normal <=0.00 (K/uL) Final Myelocytes [#/volume] in Blood by Manual count 09/04/2023 10:: 0.38 Above high normal <=0.00 (K/uL) Final Variant lymphocytes [Presence] in Blood by Light microscopy 09/04/2023 10:19:29 Present Abnormal None Seen Final Toxic granules [Presence] in Blood by Light microscopy 09/04/2023 10:19:29 Moderate Abnormal None Seen Final Performing Location LAB[facility]ATORY [facility] [place] - [address] [facility] [address]
--- OUTSIDE RECORDS SUMMARY | 2023-10-13 09:02 | External Medical Summary | Summary of Care ---
Author Name Unknown Organization [facility] Address [address] [place] [address] Phone [phone] Care Team Providers Care Account Leader Name Role Phone Jsoephine Mtz MD Primary Care Prov ider Encounter Details Date Type Department Care Team (Late st Contact Info) Description 09/02/2023 Orders Only Pharmacy, [place] [address] [place] [address] [facility] [address] [place] [address] Allergies No known active allergiesdocumented as of this encounter (statuses as of 09/02/2023) Medications Medication Sig Dispensed Refills Start Date [...] as of this encounter (statuses as of 09/02/2023) Active Problems Problem Noted Date Diagnosed Date [...] as of this encounter (statuses as of 09/02/2023) Resolved Problems Problem Noted Date Diagnosed Date [...] as of this encounter (statuses as of 09/02/2023) Immunizations Name Administration Dates Next Due COVID-19 mRNA, LNP-s, No Pre serve, 2-Dose Series (Pfizer) 02/18/2022 COVID-19, LNP-s, No Preserve , Chau-sucrose, Ages 12+ (Pfizer) 01/28/2022 DTaP Dipth/Tet/Acell Pertussis (Infanrix), Peds 12/06/2007 HPV Vaccine, 9-Valent 05/14/2018,11/10/2017 Hep A - Hepatitis A (ped/ado le, 1-18 Yrs) 05/14/2018,11/10/2017 IPV - Polio Virus Vaccine (Inact) 12/06/2007 MMR - Measles/Mumps/Rubella Vaccine 12/06/2007 Meningococcal Conjugate Vacc ine (Menactra/Menveo) 05/24/2015 Meningococcal MCV4O Conjugat e Vaccine (Menveo) 01/06/2019 Pneumococcal Conjugate Vacci ne, 20-valent ([id number]) 05/30/2022 Seasonal Influenza, PF, 6 M & [...] money to get more. Never true 07/23/2023 [place] Depression Scale Answer Date Recorded [place] Depression Scale Total 11 07/23/2023 The thought [...] Care Team (Late st Contact Info) Description 09/02/2023 2:30 PM EDT Hem/Onc Treatment Hematology/Oncology Treatment, [place] [address] [place] [address] Ebony, Chair 11 Hem Onc Scenery [address] [place] [address] 09/03/2023 10:45 AM EDT Office Visit Gynecology/Obstetrics [facility] [address] [place] [address] Lisset Zavala, ERIK 400 [facility] [place] [address] 09/03/2023 2:30 PM EDT Pharmacy Pharmacy, [place] [address] [place] [address] Clinic, [place] [address] [place] [address] Health Maintenance Due Date Last Done Comments [...] filedocumented as of this encounter Care Teams Account Leader Relationship Specialty Start Date End Date Josephine Mtz MD [address] [place] [address] [place] [phone] PCP - General Family Medicine 10/21/21 documented as of this encounter
--- OUTSIDE RECORDS SUMMARY | 2023-10-13 09:02 | External Medical Summary | Summary of Care ---
Author Name Unknown Organization [facility] Address [address] [place] [address] Phone [phone] Care Team Providers Care Tow Operator Name Role Phone Josephine Mtz MD Primary Care Prov ider Encounter Details Date Type Department Care Team (Late st Contact Info) Description 09/01/2023 Orders Only [facility] [address] [place] [address] BackerJanny CRNP [address] [place] [phone] Allergies No known active allergiesdocumented as of this encounter (statuses as of 09/01/2023) Medications Medication Sig Dispensed Refills Start Date [...] as of this encounter (statuses as of 09/01/2023) Active Problems Problem Noted Date Diagnosed Date [...] as of this encounter (statuses as of 09/01/2023) Resolved Problems Problem Noted Date Diagnosed Date [...] as of this encounter (statuses as of 09/01/2023) Immunizations Name Administration Dates Next Due COVID-19 [...] (Menveo) 01/06/2019 Pneumococcal Conjugate Vacci ne, 20-valent ([id number]) 05/30/2022 Seasonal Influenza, PF, 6 M & [...] money to get more. Never true 07/23/2023 [place] Depression Scale Answer Date Recorded [place] Depression Scale Total 11 07/23/2023 The thought [...] 2:30 PM EDT Hem/Onc Treatment Hematology/Oncology Treatment, [place] [address] [facility] [place] [phone] Ebony, Chair 11 Hem Onc Scenery [address] [place] [address] 09/03/2023 10:45 AM EDT Office Visit Gynecology/Obstetrics [facility] [address] [facility] [place] [address] Lisset Zavala, VERA 400 [facility] [place] [address] 09/03/2023 2:30 PM EDT Pharmacy Pharmacy, [place] [address] [facility] [place] [address] Clinic, [facility] [phone] Health Maintenance Due Date Last Done Comments [...] filedocumented as of this encounter Care Teams Tow Operator Relationship Specialty Start Date End Date Josephine Mtz MD [address] [place] [address] [place] [address] PCP - General Family Medicine 10/21/21 documented as of this encounter
--- OUTSIDE RECORDS SUMMARY | 2023-10-13 09:02 | External Medical Summary | Summary of Care ---
Author Name Unknown Organization [facility] Address [address] [place] [address] Phone [phone] Care Team Providers Care Undertaker Helper Name Role Phone Josephine Mtz MD Primary Care Prov ider Encounter Details Date Type Department Care Team (Late st Contact Info) Description 09/03/2023 Telephone Gynecology/Obstetrics [facility] [address] [facility] [place] [address] Lisset Zavala, [facility] [address] [place], [place] [id number] Allergies No known active allergiesdocumented as of this encounter (statuses as of 09/03/2023) Medications Medication Sig Dispensed Refills Start Date [...] as of this encounter (statuses as of 09/03/2023) Active Problems Problem Noted Date Diagnosed Date [...] as of this encounter (statuses as of 09/03/2023) Resolved Problems Problem Noted Date Diagnosed Date [...] as of this encounter (statuses as of 09/03/2023) Immunizations Name Administration Dates Next Due COVID-19 mRNA, LNP-s, No Pre serve, 2-Dose Series ([employer] 02/18/2022 COVID-19, LNP-s, No Preserve , Chau-sucrose, Ages 12+ (Pfizer) 01/28/2022 DTaP Dipth/Tet/Acell Pertussis (Infanrix), Peds 12/06/2007 HPV Vaccine, 9-Valent 05/14/2018,11/10/2017 Hep A - Hepatitis A (ped/ado le, 1-18 Yrs) 05/14/2018,11/10/2017 IPV - Polio Virus Vaccine (Inact) 12/06/2007 MMR - Measles/Mumps/Rubella Vaccine 12/06/2007 Meningococcal Conjugate Vacc ine (Menactra/Menveo) 05/24/2015 Meningococcal MCV4O Conjugat e Vaccine (Menveo) 01/06/2019 Pneumococcal Conjugate Vacci ne, 20-valent ([id number]) 05/30/2022 Seasonal Influenza, PF, 6 M & [...] money to get more. Never true 07/23/2023 [place] Depression Scale Answer Date Recorded [place] Depression Scale Total 5 09/03/2023 The thought [...] Telephone Encounter - Arti Ludwig LPN - 09/03/2023 1:23 PM EDT MyG sent * Telephone Encounter - Arti Ludwig LPN - 09/03/2023 1:22 PM EDT ----- Message from Lisset Zavala CNM sent at 09/03/2023 12:50 PM EDT ----- Please let patient know her urinalysis was normal. Thanks! Lisset Zavala CNM documented in this encounter Plan of Treatment Upcoming Encounters Date Type Department Care Team (Late st Contact Info) Description 09/03/2023 2:30 PM EDT Pharmacy Pharmacy, [place] [address] [place] [address] Clinic, Anemia [address] [place] [address] 09/04/2023 9:45 AM EDT Imaging Radiology [address] [place] [address] 09/15/2023 8:45 AM EDT Office Visit Gynecology/Obstetrics [facility] [address] [place] [address] Janny Brown CRNP [address] [place] [address] 09/24/2023 10:45 AM EDT Office Visit Gynecology/Obstetrics [facility] [address] [place] [address] Lisset Zavala, [address] [address] 09/30/2023 12:00 PM EDT Laboratory Laboratory [address] [place] [phone] [facility] [address] [place] [address] 10/01/2023 9:30 AM EDT Pharmacy Pharmacy, [address] [address] Clinic, Anemia [address] [place] [facility] [place] [address] 10/01/2023 10:45 AM EDT Office Visit Gynecology/Obstetrics [facility] [address] [place] [address] Yessy Corona CRNP [address] [place] [address] 10/08/2023 10:45 AM EDT Office Visit Gynecology/Obstetrics Day[facility] Whitley [address] [place] [address] Yessy Corona CRNP [address] [place] [address] Health Maintenance Due Date Last Done Comments [...] filedocumented as of this encounter Care Teams Undertaker Helper Relationship Specialty Start Date End Date Josephine Mtz MD [address] [place] [address] [place] [address] PCP - General Family Medicine 10/21/21 documented as of this encounter
--- OUTSIDE RECORDS SUMMARY | 2023-10-13 09:02 | External Medical Summary ---
Author Name Unknown Address Unknown Organization K01:[facility] - [address] [place] [address] Laboratory Report Ordering Provider Test Date Status TON GARCIA 09/04/2023 10:19:29 Final Observation Date Value Abnormality Reference (Units ) Status Folic Acid 09/04/2023 10:19:29 >20.0 >4.5 (ng/ mL) Final Performing Location [facility] - [address] [place] [address]
--- OUTSIDE RECORDS SUMMARY | 2023-10-13 09:02 | External Medical Summary | Summary of Care ---
Author Name Unknown Organization [facility] Address [address] [place] [address] Phone [phone] Care Team Providers Care Marketing Strategy Manager Name Role Phone Josephine Mtz MD Primary Care Prov ider Reason for Visit * Reason Comments Infusion Venofer Encounter Details Date Type Department Care Team (Latest Contact Info) Description 08/27/2023 2:30 PM EDT Hem/Onc Treatment Hematology/Oncology Treatment, [place] [address] [place] [address] Ebony, Chair 7 Hem Onc Scene [address] [place], [place] [phone] Iron deficiency anemia, unspecified iron deficiency anemia type* Allergies No known active allergiesdocumented as of this encounter (statuses as of 08/27/2023) Medications Medication Sig Dispensed Refills Start Date [...] as of this encounter (statuses as of 08/27/2023) Active Problems Problem Noted Date Diagnosed Date [...] as of this encounter (statuses as of 08/27/2023) Resolved Problems Problem Noted Date Diagnosed Date [...] as of this encounter (statuses as of 08/27/2023) Immunizations Name Administration Dates Next Due COVID-19 mRNA, LNP-s, No Pre serve, 2-Dose Series ([employer]) 02/18/2022 COVID-19, LNP-s, No Preserve , Chau-sucrose, Ages 12+ (Pfizer) 01/28/2022 DTaP Dipth/Tet/Acell Pertussis (Infanrix), Peds 12/06/2007 HPV Vaccine, 9-Valent 05/14/2018,11/10/2017 Hep A - Hepatitis A (ped/ado le, 1-18 Yrs) 05/14/2018,11/10/2017 IPV - Polio Virus Vaccine (Inact) 12/06/2007 MMR - Measles/Mumps/Rubella Vaccine 12/06/2007 Meningococcal Conjugate Vacc ine (Menactra/Menveo) 05/24/2015 Meningococcal MCV4O Conjugat e Vaccine (Menveo) 01/06/2019 Pneumococcal Conjugate Vacci ne, 20-valent ([id number]) 05/30/2022 Seasonal Influenza, PF, 6 M & [...] money to get more. Never true 07/23/2023 Leslie Depression Scale Answer Date Recorded Leslie Depression Scale Total 11 07/23/2023 The thought [...] 2:30 PM EDT Hem/Onc Treatment Hematology/Oncology Treatment, [place] [address] [place] [address] Ebony, Chair 11 Hem Onc Scenery [address] [place] [address] 09/03/2023 10:45 AM EDT Office Visit Gynecology/Obstetrics [facility] [address] [facility] [place] [address] Lisset Zavala, [facility] [address] [place] [address] 09/03/2023 2:30 PM EDT Pharmacy Pharmacy, [address] [address] Clinic, [address] [address] Health Maintenance Due Date Last Done Comments [...] Primary documented in this encounter Administered Medications Active Administered Medications - up to 3 most recent administrations Medication Order MAR Action Action Date Dose Rate Site diphenhydrAMINE (Benadryl) inj 50 mg 50 mg, IV Push, ONCE PRN Other, Hypersensitivity Reaction, Starting on Yulisa 08/27/23 at 1428, Until Thu08/28/23 at 1427, For 24 hours EPINEPHrine 1 MG/ML inj 0.3 mg 0.3 mg, Intramuscular, ONCE PRN Other, Hypersensitivity Reaction or Anaphylaxis, Starting on Yulisa 08/27/23 at 1428, Until Thu08/28/23 at 1427, For 24 hours hEParin 100 UNIT/ML Lock Flush inj 500 Units 500 Units (5 mL), IV Lock, PRN Other, IV Flush, Starting on Yulisa 08/27/23 at 1428, Until Thu08/28/23 at 1427, For 24 hours, Do not flush if lock, PICC, or central line not in place; IV infusing or unable to flush. Hydrocortisone Sod Suc (PF) (Solu-Cortef) inj 100 mg 100 mg, IV Push, ONCE PRN Other, Hypersensitivity Reaction, Starting on Yulisa 08/27/23 at 1428, Until Thu08/28/23 at 1427, For 24 hours NSS infusion 500 mL, Intravenous, at 50 mL/hr, CONTINUOUS, Starting on Thu08/27/23 at 1530, Until Thu08/28/23 at 0129 Start Infusion 08/27/2023 2:40 PM EDT 500 mL 50 mL/hr oxygen GAS Inhalation, OXYGEN, First dose on Thu08/27/23 at 1600, Until Discontinued, Device/Managed by: Low Flow Device, Goal SPO2 (%): 91-95, Starting Device: Nasal Cannula, Initial Flow Rate (LPM): 2, Lowest Support: Nasal Cannula: Flow 0-6 LPM. Titrate up/down by 1 LPM., Higher Support: Non-Rebreather (NRB) Mask: Minimum of 10 LPM. Titrate to maintain bag inflation., Titration Interval: Q2 minutes and as needed., Notify Provider: For sudden DECREASE in resting SPO2 to less than 85% and when escalating delivery device., Wean patient off Oxygen when the oxygen saturation is greater than or equal to 93% sodium chloride 0.9 % flush central line 10 mL 10 mL, IV Push, PRN Other, IV Flush, Starting on Yulisa 08/27/23 at 1428, Until Thu08/28/23 at 1427, For 24 hours, Do not flush if lock, PICC, or central line not in place; IV infusing or unable to flush. Inactive Administered Medications - up to 3 most recent administrations Medication Order MAR Action Action Date Dose Rate Site Iron Sucrose (Venofer) 300 mg in NSS 250 mL ivpb 300 mg, IV Piggyback, ONCE, 1 dose, On Yulisa 08/27/23 at 1600, Administer over 90 Minutes Start Infusion 08/27/2023 2:40 PM EDT 300 mg 166.67 mL/hr documented in this encounter Care Teams Marketing Strategy Manager Relationship Specialty Start Date End Date Josephine Mtz MD [address] [place] [address] [place] [address] PCP - General Family Medicine 10/21/21 documented as of this encounter
--- OUTSIDE RECORDS SUMMARY | 2023-10-13 09:02 | External Medical Summary ---
Author Name Unknown Address Unknown Organization K01:[facility] - [address] [place] [address] Laboratory Report Ordering Provider Test Date Status TON GARCIA 09/04/2023 10:19:29 Final Observation Date Value Abnormality Reference (Units ) Status Ferritin 09/04/2023 10:19:29 577 Above high normal 13 -150 (ng/mL) Final Performing Location [facility] - [address] [place] [address]
--- OUTSIDE RECORDS SUMMARY | 2023-10-13 09:02 | External Medical Summary | Summary of Care ---
Author Name Unknown Organization [facility] Address [address] [place] [address] Phone [phone] Care Team Providers Care Battery Assembler Plastic Name Role Phone Josephine Mtz MD Primary Care Prov ider Reason for Visit * Reason Onset Date Comments Left Message Anemia Follow-Up 09/03/2023 Encounter Details Date Type Department Care Team (Late st Contact Info) Description 09/03/2023 2:30 PM EDT Pharmacy Pharmacy, [place] [address] [place] [address] Clinic, Anemia [address] [place] [address] Iron deficiency anemia, unspecified iron deficiency anemia [...] mRNA, LNP-s, No Pre serve, 2-Dose Series ([employer]) 02/18/2022 COVID-19, LNP-s, No Preserve , Chau-sucrose, Ages 12+ (Pfizer) 01/28/2022 DTaP Dipth/Tet/Acell Pertussis (Infanrix), Peds 12/06/2007 HPV Vaccine, 9-Valent 05/14/2018,11/10/2017 Hep A - Hepatitis A (ped/ado le, 1-18 Yrs) 05/14/2018,11/10/2017 IPV - Polio Virus Vaccine (Inact) 12/06/2007 MMR - Measles/Mumps/Rubella Vaccine 12/06/2007 Meningococcal Conjugate Vacc ine (Menactra/Menveo) 05/24/2015 Meningococcal MCV4O Conjugat e Vaccine (Menveo) 01/06/2019 Pneumococcal Conjugate Vacci ne, 20-valent ([id number]) 05/30/2022 Seasonal Influenza, PF, 6 M & [...] money to get more. Never true 07/23/2023 [place] Depression Scale Answer Date Recorded [place] Depression Scale Total 5 09/03/2023 The thought [...] as of this encounter Progress Notes * Nena Benz RPh - 09/03/2023 2:16 PM EDT CBCd, ferritin, iron screen, retic panel, B12, FA ordered for 09/30/23. Nena Benz PharmD, [facility] Clinical Pharmacist [facility]emia [facility] (P: [phone]) 09/03/2023 2:16 PM * Aurea Nguyen attendant self service store - 09/03/2023 8:45 AM EDT Patient Phone Numbers MyG sent to patient. Patient received Venofer 300 mg x 3 on 08/18, 08/26 and 09/01. Labs due on 09/29. GA: [id number] Estimated Date of Delivery: 10/15/23 Pharmacist - please place appropriate lab orders. Thank you, Aurea Nguyen Caddie 09/03/2023,8:45 AM documented in this encounter Plan of Treatment Upcoming Encounters Date Type Department Care Team (Late st Contact Info) Description 09/04/2023 9:45 AM EDT Imaging Radiology [address] [place] [address] 09/15/2023 8:45 AM EDT Office Visit Gynecology/Obstetrics [facility] [address] [place] [address] Janny Brown CRNP [address] [place] [address] 09/24/2023 10:45 AM EDT Office Visit Gynecology/Obstetrics [facility] [address] [address] Lisset Zavala, [facility] [address] [facility] [address] 09/30/2023 12:00 PM EDT Laboratory Laboratory [address] [place] [phone] [facility] [address] [place] [address] 10/01/2023 9:30 AM EDT Pharmacy Pharmacy, [address] [id number] Clinic, [place] [address] [place] [address] 10/01/2023 10:45 AM EDT Office Visit Gynecology/Obstetrics [facility] [address] [place] [address] Yessy Corona CRNP [address] [place] [address] 10/08/2023 10:45 AM EDT Office Visit Gynecology/Obstetrics Dayami Whitley [address] [place] [address] Yessy Corona CRNP [address] [place] [address] Scheduled Orders Name Type Priority Associated Diagnoses Orde r Schedule CBC WITH WBC DIFFERENTIAL Lab Routine Iron deficiency anemia, unspecified iron deficiency anemia type Expected: 09/30/2023, Expires: 08/02/2024 IRON SCREEN, INCLUDING TIBC Lab Routine Iron deficiency anemia, unspecified iron deficiency anemia type Expected: 09/30/2023, Expires: 08/02/2024 FERRITIN Lab Routine Iron deficiency anemia, unspecified iron deficiency anemia type Expected: 09/30/2023, Expires: 08/02/2024 RETICULOCYTE PANEL Lab Routine Iron deficiency anemia, unspecified iron deficiency anemia type Expected: 09/30/2023, Expires: 08/02/2024 FOLIC ACID Lab Routine Iron deficiency anemia, unspecified iron deficiency anemia type Expected: 09/30/2023, Expires: 08/02/2024 VITAMIN B12 Lab Routine Iron deficiency anemia, unspecified iron deficiency anemia type Expected: 09/30/2023, Expires: 08/02/2024 Health Maintenance Due Date Last Done Comments [...] Primary documented in this encounter Care Teams Battery Assembler Plastic Relationship Specialty Start Date End Date Josephine Mtz MD [address] [place] [address] [place] [address] PCP - General Family Medicine 10/21/21 documented as of this encounter
--- OUTSIDE RECORDS SUMMARY | 2023-10-13 09:02 | External Medical Summary | Summary of Care ---
Author Name Unknown Organization [facility] Address [address] [place] [address] Phone [phone] Care Team Providers Care Machine Attendant Name Role Phone Josephine Mtz MD Primary Care Prov ider Reason for Visit * Reason Comments IV Therapy Venofer. Encounter Details Date Type Department Care Team (Latest Contact Info) Description 09/02/2023 2:30 PM EDT Hem/Onc Treatment Hematology/Oncology Treatment, [address] [address] Ebony, Chair 11 Hem Onc [facility] [address] [place] [address] Iron deficiency anemia, unspecified iron [...] 0 Active Butenafine HCl 1 % External CreamIndications:Berneice a cruris Apply to groin once daily [...] mRNA, LNP-s, No Pre serve, 2-Dose Series ([employer]) 02/18/2022 COVID-19, LNP-s, No Preserve , Chau-sucrose, Ages 12+ (Pfizer) 01/28/2022 DTaP Dipth/Tet/Acell Pertussis (Infanrix), Peds 12/06/2007 HPV Vaccine, 9-Valent 05/14/2018,11/10/2017 Hep A - Hepatitis A (ped/ado le, 1-18 Yrs) 05/14/2018,11/10/2017 IPV - Polio Virus Vaccine (Inact) 12/06/2007 MMR - Measles/Mumps/Rubella Vaccine 12/06/2007 Meningococcal Conjugate Vacc ine (Menactra/Menveo) 05/24/2015 Meningococcal MCV4O Conjugat e Vaccine (Menveo) 01/06/2019 Pneumococcal Conjugate Vacci ne, 20-valent ([id number]) 05/30/2022 Seasonal Influenza, PF, 6 M & [...] money to get more. Never true 07/23/2023 [place] Depression Scale Answer Date Recorded [place] Depression Scale Total 11 07/23/2023 The thought [...] Upcoming Encounters Date Type Department Care Team (Mark rudd Contact Info) Description 09/03/2023 10:45 AM EDT Office Visit Gynecology/Obstetrics [facility] [address] [place] [address] Lisset Zavala, [facility] [address] [place] [address] 09/03/2023 2:30 PM EDT Pharmacy Pharmacy, [place] [address] [place], [place] [id number] Clinic, Anemia [address] [place] [address] Health Maintenance Due Date Last Done Comments [...] ONCE PRN Other, Hypersensitivity Reaction, Starting on Thu09/02/23 at 1438, Until Thu09/03/23 at 1437, For 24 hours EPINEPHrine 1 MG/ML inj 0.3 mg 0.3 mg, Intramuscular, ONCE PRN Other, Hypersensitivity Reaction or Anaphylaxis, Starting on Thu09/02/23 at 1438, Until Thu09/03/23 at 1437, For 24 hours hEParin 100 UNIT/ML Lock Flush inj 500 Units 500 Units (5 mL), IV Lock, PRN Other, IV Flush, Starting on Thu09/02/23 at 1438, Until Thu09/03/23 at 1437, For 24 hours, Do not flush if lock, PICC, or central line not in place; IV infusing or unable to flush. Hydrocortisone Sod Suc (PF) (Solu-Cortef) inj 100 mg 100 mg, IV Push, ONCE PRN Other, Hypersensitivity Reaction, Starting on Thu09/02/23 at 1438, Until Thu09/03/23 at 1437, For 24 hours NSS infusion 500 mL, Intravenous, at 50 mL/hr, CONTINUOUS, Starting on Thu09/02/23 at 1545, Until Thu09/03/23 at 0144 Start Infusion 09/02/2023 2:45 PM EDT 500 mL 50 mL/hr oxygen GAS Inhalation, OXYGEN, First dose on Thu09/02/23 at 1600, Until Discontinued, Device/Managed by: Low [...] Push, PRN Other, IV Flush, Starting on Thu09/02/23 at 1438, Until Yulisa 09/03/23 at 1437, For 24 hours, Do not flush if [...] 2:45 PM EDT 300 mg 193.33 mL/hr documented in this encounter Care Teams Machine Attendant Relationship Specialty Start Date End Date Josephine Mtz MD [address] [place] [address] [place] [address] PCP - General Family Medicine 10/21/21 documented as of this encounter
--- OUTSIDE RECORDS SUMMARY | 2023-10-13 09:02 | External Medical Summary ---
Author Name Unknown Address Unknown Organization K01:[facility] [address] [place] [address] Laboratory Report Ordering Provider Test Date Status TON GARCIA 09/04/2023 10:19:29 Final Observation Date Value Abnormality Reference (Units ) Status TSH 09/04/2023 10:19:29 1.63 0.27-4.20 (uIU/mL) Final Performing Location [facility] - [address] [place] [address]
--- OUTSIDE RECORDS SUMMARY | 2023-10-13 09:02 | External Medical Summary ---
Author Name Unknown Address Unknown Organization K01:LAB[facility]ORY [facility] [place] - [facility] [place] [address] Laboratory Report Ordering Provider Test Date Status TON GARCIA 09/04/2023 10:19:29 Final Observation Date Value Abnormality Reference (Units ) Status WBC, Total 09/04/2023 10:19:29 12.64 Above high normal 4 .00-10.80 (K/uL) Final RBC 09/04/2023 10:19:29 3.20 3.85-5.15 (M/uL) Final Hemoglobin 09/04/2023 10:19:29 10.5 Below low normal 12 .0-15.3 (g/dL) Final Anemia reflex testing trigge rs on a HGB < 12.0 for Females and HGB < 13.0 for Males in accordance with the WHO Anemia Guidelines
Anemia reflex testing triggers on a HGB < 12.0 for Females and HGB < 13.0 for Males in accordance with the WHO Anemia Guidelines HCT 09/04/2023 10:19:29 32.4 Below low normal 36. 0-45.2 (%) Final MCV 09/04/2023 10:19:29 101.3 81.5-97.5 (fL) Final MCH 09/04/2023 10:19:29 32.8 27.0-34.0 (pg) Final MCHC 09/04/2023 10:19:29 32.4 32.0-36.0 (g/dL) Final RDW 09/04/2023 10:19:29 13.2 11.5-15.5 (%) Final Platelets 09/04/2023 10:19:29 242 140-400 (K /uL) Final MPV 09/04/2023 10:19:29 9.5 6.6-11.1 ( fL) Final Nucleated erythrocytes/100 leukocytes [Ratio] in Blood by Automated count 09/04/2023 10:19:29 0 <=0 (/100 WBCs) Fi [facility] Performing Location LAB[facility]ATORY [facility] - [address] [facility] [address]
--- OUTSIDE RECORDS SUMMARY | 2023-10-13 09:02 | External Medical Summary ---
Author Name Unknown Address Unknown Organization K01:LABORATORY [facility] [place] - [address] [place] [address] Laboratory Report Ordering Provider Test Date Status TON GARCIA 09/04/2023 10:19:29 Final Observation Date Value Abnormality Reference (Units ) Status Vitamin B12 09/04/2023 10:19:29 035 251-9125 (pg/mL) Final Performing Location LABORATORY [facility] - [address] [place] [address]
--- OUTSIDE RECORDS SUMMARY | 2023-10-13 09:02 | External Medical Summary | Summary of Care ---
Author Name Unknown Organization [facility] Address [address] [place] [address] Phone [phone] Care Team Providers Care Innersole Maker Name Role Phone Josephine Mtz MD Primary Care Prov ider Reason for Visit * Reason Comments Return Visit Encounter Details Date Type Department Care Team (Late st Contact Info) Description 09/03/2023 10:45 AM EDT Office Visit Gynecology/Obstetric [facility] [address] [facility] [place] [address] Lisset Zavala, [facility] [address] [place] [address] Supervision of other normal , antepartum*; Depression complicating , antepartum; Elevated LFTs; Antepartum anemia complicating ; Elevated blood pressure [...] mRNA, LNP-s, No Pre serve, 2-Dose Series ([employer]) 02/18/2022 COVID-19, LNP-s, No Preserve , Chau-sucrose, Ages 12+ (Pfizer) 01/28/2022 DTaP Dipth/Tet/Acell Pertussis (Infanrix), Peds 12/06/2007 HPV Vaccine, 9-Valent 05/14/2018,11/10/2017 Hep A - Hepatitis A (ped/ado le, 1-18 Yrs) 05/14/2018,11/10/2017 IPV - Polio Virus Vaccine (Inact) 12/06/2007 MMR - Measles/Mumps/Rubella Vaccine 12/06/2007 Meningococcal Conjugate Vacc ine (Menactra/Menveo) 05/24/2015 Meningococcal MCV4O Conjugat e Vaccine (Menveo) 01/06/2019 Pneumococcal Conjugate Vacci ne, 20-valent ([id number]) 05/30/2022 Seasonal Influenza, PF, 6 M & [...] money to get more. Never true 07/23/2023 [place] Depression Scale Answer Date Recorded [place] Depression Scale Total 5 09/03/2023 The thought [...] Sign Reading Time Taken Comments Blood Pressure 132/78 09/03/2023 10:38 AM EDT Pulse - - Temperature - - Respiratory Rate - - Oxygen Saturation - - Inhaled Oxygen Concentration - - Weight 71.7 kg (158 lb) 09/03/2023 10:38 AM EDT Height - - Body Mass Index - - documented in this encounter Progress Notes * Lisset Zavala CNM - 09/03/2023 10:55 AM EDT Samuel Amador is a 22 year old female here for her routine OB appointment at 34w0d Her Estimated Date of Delivery: 10/15/23 REVIEW OF SYSTEMS: She affirms movement. Denies vaginal bleeding, LOF, contractions, N/V, and RUQ pain. Headaches have improved, now 2-3 times weekly. Had spotty vision on 08/28 and 08/29 which lasted about 2 minutes each time, then resolved. Checks her BP at home. 150/80 on 08/30 was the highest home BP.She has an elevated BP of 147/70 in our office on 08/20/23, but otherwise does not yet meet criteriafor gHTN. Reports some hip pain, which is relieved with tylenol and position changes. [place] Depression Scale: [place] Depression Scale Total: 5 [place] suicide question and score: Score of 3 = Yes, quite often. Score of 2 = Sometimes. Score of 1 = Hardly ever The thought of harming myself has occurred to me.: 0 PHYSICAL EXAM: Filed Vitals: 09/03/23 1038 BP: 132/78 Weight: 71.7 kg (158 lb) +FHT 130-140bpm Fundal height: 32cm ASSESSMENT/PLAN: (O99.340, F32.A) Depression complicating , antepartum Plan: -Feels well on Wellbutrin -Denies any mental health concerns (R79.89) Elevated LFTs Plan: -LFTs normal on 08/20/23: ALT 24 and AST 28 (O99.019) Antepartum anemia complicating Plan: -Taking PO iron -Repeat CBC at earliest convenience (O16.3) Elevated blood pressure affecting in third trimester, antepartum Plan: -BP 147/70 on 08/19/23; BP 132/78 today -Reviewed pre-eclampsia warning signs in detail -Encouraged patient to call for any BP of 140/90 or above -Discussed with patient that she does not yet meet criteria for gHTN but if she has another BP of 140/90 or above, she will rule in for gHTN and we will recommend delivery at 37 weeks. -Patient agreeable to the above plan (Z34.80) Supervision of other normal , antepartum (primary encounter diagnosis) Plan: URINALYSIS, POINT OF CARE (ENTER/EDIT), US PREG FOLLOW-UP EACH FETUS -growth US ordered to due patient's FH measuring 31 on 08/05 and then 30 on 07/19 and 30 today. Patient is borderline S<D. Will get US to confirm appropriate growth. - discussed GBS and to expect swab to be completed at next visit - labor precautions and kick counts reviewed - RTO in 2 weeks Lisset Zavala CNM * Concetta Mathur LPN - 09/03/2023 10:37 AM EDT 34w0d Denies vaginal bleeding/rom + movement Home BP's 130's/80's and a couple 140-150's/80's Labor instructions given documented in this encounter Miscellaneous Notes * Result Encounter Note - Lisset Zavala CNM - 09/03/2023 12:50 PM EDT Please let patient know her urinalysis was normal. Thanks! Lisset Zavala CNM documented in this encounter Plan of Treatment Upcoming Encounters Date Type Department Care Team (Late st Contact Info) Description 09/03/2023 2:30 PM EDT Pharmacy Pharmacy, [address] [address] Clinic, [address] [address] 09/04/2023 9:45 AM EDT Imaging Radiology [address] [place] [address] 09/15/2023 8:45 AM EDT Office Visit Gynecology/Obstetrics Dayami Whitley [facility] [place] [address] Janny Brown CRNP [address] [place] [address] 09/24/2023 10:45 AM EDT Office Visit Gynecology/Obstetrics [facility] [address] [facility] [place] [address] Lisset Zavala, [facility] [address] [place] [address] 09/30/2023 12:00 PM EDT Laboratory Laboratory [address] [place] [phone] [place], Lab [address] [place] [address] 10/01/2023 9:30 AM EDT Pharmacy Pharmacy, [place] [address] [place], [place] [phone] Clinic, [facility] [address] [place] [address] 10/01/2023 10:45 AM EDT Office Visit Gynecology/Obstetrics [facility] [address] [facility] [place] [address] Yessy Corona CRNP 132 [facility] [place] [address] 10/08/2023 10:45 AM EDT [facility] [place] [address] Yessy Corona CRNP 132 [facility] [place] [address] Scheduled Orders Name Type Priority Associated Diagnoses Orde r Schedule US PREG FOLLOW-UP EACH FETUS Medical Imaging Routine Supervision of other normal , antepartum Expected: 09/03/2023, Expires: 10/02/2024 CBC WITH WBC DIFFERENTIAL AND ANEMIA REFLEX WORKUP Lab Routine Antepartum anemia complicating Expected: 09/03/2023 (Approximate), Expires: 09/02/2024 Health Maintenance Due Date Last Done Comments [...] Not on filedocumented as of this encounter Procedures Procedure Name Priority Date/Time Associated Diagnosis Comments URINALYSIS, POINT OF CARE (ENTER/EDIT) Routine 09/03/2023 Supervision of other normal , antepartum documented in this encounter Results * URINALYSIS, POINT OF CARE (ENTER/EDIT) (09/03/2023) Color, Urine Yellow Yellow or Light Yellow Clarity, Urine Clear Clear Glucose, Urine Negative Negative mg/dL Bilirubin, Urine Negative Negative Ketone, Urine Negative Negative mg/dL Specific [place], Urine 1.020 1.003 - 1.030 Blood, Urine Negative Negative pH, Urine 7.0 5.0 - 7.5 units Protein, Urine Negative Negative mg/dL Urobilinogen, Urine 0.2 0.2 - 1.0 mg/dL Nitrite, Urine Negative Negative Esterase, Urine Small Negative Urine 09/03/2023 Lisset Zavala CNM LAB POINT OF CARE [facility] ENTER/EDIT ORDERABLES documented in this encounter Visit Diagnoses Diagnosis Supervision of other normal , antepartum- Primary Depression complicating , antepartum Mental disorders of mother, antepartum Elevated LFTs Other abnormal blood chemistry Antepartum anemia complicating Anemia, antepartum Elevated blood pressure affecting in third trimester, antepartum documented in this encounter Care Teams Innersole Maker Relationship Specialty Start Date End Date Josephine Mtz MD [address] [place] [address] [place] [phone] PCP - General Family Medicine 10/21/21 documented as of this encounter
--- OUTSIDE RECORDS SUMMARY | 2023-10-13 09:02 | External Medical Summary | Summary of Care ---
Author Name Unknown Organization [facility] Address [address] [place] [address] Phone [phone] Care Team Providers Care Guest Relations Officer Name Role Phone Josephine Mtz MD Primary Care Prov ider Reason for Visit * Reason Comments Blood Pressure Check Encounter Details Date Type Department Care Team (Late st Contact Info) Description 08/24/2023 10:30 AM EDT Nurse Only Gynecology/Obstetric s [address] [place] [address] [place], Nurse Obgyn Injection [address] [place] [address] Blood Pressure Check Allergies No known active allergiesdocumented as of [...] (Menveo) 01/06/2019 Pneumococcal Conjugate Vacci ne, 20-valent ([id number]) 05/30/2022 Seasonal Influenza, PF, 6 M & [...] money to get more. Never true 07/23/2023 [place] Depression Scale Answer Date Recorded [place] Depression Scale Total 11 07/23/2023 The thought [...] Sign Reading Time Taken Comments Blood Pressure 122/68 08/24/2023 10:27 AM EDT Pulse - - Temperature - - Respiratory Rate - - Oxygen Saturation - - Inhaled Oxygen Concentration - - Weight - - Height - - Body Mass Index - - documented in this encounter Nursing Notes * Alexa Deal LPN - 08/24/2023 10:31 AM EDT Pt came in for BP check today. Pt is 32w4d and had slightly elevated bp last week In office. Pts BPtoday was 122/68. Pt denies any ALBRECHT's, RUQ pain, vb, lof and baby is moving well. I told pt BP was good to continue to monitor at home and report if bp is 140/90 or higher. I told pt I will reach out to cotton tier provider to msee if any additional follow up is needed. Pts next jacinto appt is 09/02. Pleasereview and advise documented in this encounter Plan of Treatment Upcoming Encounters Date Type Department Care Team (Late st Contact Info) Description 09/02/2023 2:30 PM EDT Hem/Onc Treatment Hematology/Oncology Treatment, [place] [address] [place] [address] Ebony, Chair 11 Hem Onc Scene [address] [place] [address] 09/03/2023 10:45 AM EDT Office Visit Gynecology/Obstetrics Dayami [place] [address] [facility] [place] [address] Lisset Zavala, [facility] 400 [facility] [place] [address] 09/03/2023 2:30 PM EDT Pharmacy Pharmacy, [address] [address] Clinic, [address] [address] Health Maintenance Due Date Last Done Comments [...] filedocumented as of this encounter Care Teams Guest Relations Officer Relationship Specialty Start Date End Date Josephine Mtz MD [address] [place] [address] [place] [phone] PCP - General Family Medicine 10/21/21 documented as of this encounter
--- OUTSIDE RECORDS SUMMARY | 2023-10-13 09:03 | External Medical Summary | Summary of Care ---
Author Name Unknown Organization [facility] Address [address] [place] [address] Phone [phone] Care Team Providers Care Ballaster Name Role Phone Josephine Mtz MD Primary Care Prov ider Reason for Visit * Reason Comments Outpatient Testing Encounter Details Date Type Department Care Team (Late st Contact Info) Description 08/20/2023 11:20 AM EDT Laboratory Laboratory, [facility] [address] [place] [address] [facility] [address] [place] [address] Supervision of other normal , antepartum Allergies No known active allergiesdocumented as of this encounter (statuses as of 08/20/2023) Medications Medication Sig Dispensed Refills Start Date [...] as of this encounter (statuses as of 08/20/2023) Active Problems Problem Noted Date Diagnosed Date [...] as of this encounter (statuses as of 08/20/2023) Resolved Problems Problem Noted Date Diagnosed Date [...] as of this encounter (statuses as of 08/20/2023) Immunizations Name Administration Dates Next Due COVID-19 mRNA, LNP-s, No Pre serve, 2-Dose Series ([employer]) 02/18/2022 COVID-19, LNP-s, No Preserve , Chau-sucrose, Ages 12+ (Pfizer) 01/28/2022 DTaP Dipth/Tet/Acell Pertussis (Infanrix), Peds 12/06/2007 HPV Vaccine, 9-Valent 05/14/2018,11/10/2017 Hep A - Hepatitis A (ped/ado le, 1-18 Yrs) 05/14/2018,11/10/2017 IPV - Polio Virus Vaccine (Inact) 12/06/2007 MMR - Measles/Mumps/Rubella Vaccine 12/06/2007 Meningococcal Conjugate Vacc ine (Menactra/Menveo) 05/24/2015 Meningococcal MCV4O Conjugat e Vaccine (Menveo) 01/06/2019 Pneumococcal Conjugate Vacci ne, 20-valent ([id number]) 05/30/2022 Seasonal Influenza, PF, 6 M & [...] money to get more. Never true 07/23/2023 [place] Depression Scale Answer Date Recorded [place] Depression Scale Total 11 07/23/2023 The thought [...] Description 08/24/2023 10:30 AM EDT Nurse Only Gynecology/Obstetrics [address] [place] [address] [place], Nurse Obgyn [address] [place] [address] 08/27/2023 2:30 PM EDT Hem/Onc Treatment Hematology/Oncology Treatment, [place] [address] [facility] [phone] Ebony, Chair 7 Hem Onc Scenery [address] [place] [address] [place] [address] 09/02/2023 2:30 PM EDT Hem/Onc Treatment Hematology/Oncology Treatment, [place] [address] [facility] [phone] Ebony, Chair 3 Hem Onc Scenery 200 [facility] [place] [address] 09/03/2023 10:45 AM EDT Office Visit Gynecology/Obstetrics [facility] 132 [facility] [place] [address] Lisset Zavala, [place] [facility] [address] 09/03/2023 2:30 PM EDT Pharmacy Pharmacy, [place] [address] [place], [place] [phone] Clinic, [facility] [address] [place] [address] Pending Results Name Type Priority Associated Diagnoses Date /Time PLT Lab STAT Supervision of other normal , antepartum 08/20/2023 11:12 AM EDT Health Maintenance Due Date Last [...] Diagnoses Diagnosis Supervision of other normal , antepartum documented in this encounter Care Teams Ballaster Relationship Specialty Start Date End Date Josephine Mtz MD [address] [place] [address] [place] [phone] PCP - General Family Medicine 10/21/21 documented as of this encounter
--- OUTSIDE RECORDS SUMMARY | 2023-10-13 09:03 | External Medical Summary ---
Author Name Unknown Address Unknown Organization K01:LABORATORY [facility] - [facility] [address] [place] [address] Laboratory Report Ordering Provider Test Date Status TON GARCIA 08/20/2023 11:16:17 Final Normal: <150 mg/ g creatinine
High: 150-500 mg/g creatinine
Very High: >500 mg/g creatinine
Nephrotic: >3000 mg/g creatinine Observation Date Value Abnormality Reference (Units ) Status Protein/Creatinine [Ratio] in Urine 08/20/2023 11:16:17 133 <150 (mg/g ) Final Protein, Urine 08/20/2023 11:16:17 8 (mg/dL) Final Creatinine, Urine 08/20/2023 11:16:17 60 (mg/dL) Final Performing Location LABORATORY [facility] - [address] [place] [address]
--- OUTSIDE RECORDS SUMMARY | 2023-10-13 09:03 | External Medical Summary | Summary of Care ---
Author Name Unknown Organization [facility] Address [address] [place] [address] Phone [phone] Care Team Providers Care Respooler Name Role Phone Josephine Mtz MD Primary Care Prov ider Reason for Visit * Reason Comments Outpatient Testing Encounter Details Date Type Department Care Team (Late st Contact Info) Description 08/24/2023 10:20 AM EDT Laboratory Laboratory [address] [place] [phone] , Specimen Drop Off [address] [place] [address] Arrived Allergies No known active allergiesdocumented as of this encounter (statuses as of 08/24/2023) Medications Medication Sig Dispensed Refills Start Date [...] as of this encounter (statuses as of 08/24/2023) Active Problems Problem Noted Date Diagnosed Date [...] as of this encounter (statuses as of 08/24/2023) Resolved Problems Problem Noted Date Diagnosed Date [...] as of this encounter (statuses as of 08/24/2023) Immunizations Name Administration Dates Next Due COVID-19 [...] (Menveo) 01/06/2019 Pneumococcal Conjugate Vacci ne, 20-valent ([id number]) 05/30/2022 Seasonal Influenza, PF, 6 M & [...] money to get more. Never true 07/23/2023 [place] Depression Scale Answer Date Recorded [place] Depression Scale Total 11 07/23/2023 The thought of harming myself has occurred to me . Never 07/23/2023 Estimated Date of Delivery Comme nts Yes 10/15/2023 Based on last me nstrual period of 01/08/2023 Sex and Gender Information Value Date Recorded Sex Assigned at Female 10/13/2022 8:50 AM EDT Gender Identity Female 10/13/2022 8:50 AM EDT Sexual Orientation Straight 10/13/2022 8 :50 AM EDT Job Start Date Occupation Industry Not on file Not on file Not on file documented as of this encounter Plan of Treatment Upcoming Encounters Date Type Department Care Team (Late st Contact Info) Description 08/27/2023 2:30 PM EDT Hem/Onc Treatment Hematology/Oncology [address], [address] [phone] Ebony, Chair 7 Hem On[address] [place] [address] 09/02/2023 2:30 PM EDT Hem/Onc Treatment Hematology/Oncology Treatment, [address] [address] Ebony, Chair 3 Hem Onc [facility] [address] [place] [address] [place] [address] 09/03/2023 10:45 AM EDT Office Visit Gynecology/Obstetrics [facility] 132 [facility] [place] [address] Lisset Zavala, [place] 400 [facility] [place] [address] 09/03/2023 2:30 PM EDT Pharmacy Pharmacy, [address] [address] Clinic, [place] [address] [place] [address] Health Maintenance Due Date Last Done Comments [...] filedocumented as of this encounter Care Teams Respooler Relationship Specialty Start Date End Date Josephine Mtz MD [address] [place] [address] [place] [address] PCP - General Family Medicine 10/21/21 documented as of this encounter
--- OUTSIDE RECORDS SUMMARY | 2023-10-13 09:03 | External Medical Summary ---
Author Name Unknown Address Unknown Organization K01:[facility]ORY [facility] - [address] [place] [address] Laboratory Report Ordering Provider Test Date Status TON GARCIA 08/24/2023 10:22:05 Final Normal: <150 mg/24 hours<br/ >High: 150-500 mg/24 hours
Very High: >500 mg/24 hours
Nephrotic: >3000 mg/24 hours Observation Date Value Abnormality Reference (Units ) Status Protein, 24-hr Urine 08/24/2023 10:22:05 6 (mg/dL) Final Urine Volume 08/24/2023 10:22:05 2200 (mL) Final Protein, 24-hr Urine 08/24/2023 10:22:05 132 <150 (mg/24 hours) Final Performing Location LABORATORY [facility] - [address] [place] [address]
--- OUTSIDE RECORDS SUMMARY | 2023-10-13 09:03 | External Medical Summary | Summary of Care ---
Author Name Unknown Organization [facility] Address [address] [place] [address] Phone [phone] Care Team Providers Care Felt Carbonizer Name Role Phone Josephine Mtz MD Primary Care Prov ider Reason for Visit * Reason Comments Infusion Venofer 05/13 Encounter Details Date Type Department Care Team (Latest Contact Info) Description 08/19/2023 2:45 PM EDT Hem/Onc Treatment Hematology/Oncology Treatment, [place] [address] [place] [address] Ebony, Chair 9 Hem Onc Scenery [address] [place], [place] [phone] Iron deficiency anemia, unspecified iron deficiency anemia [...] mRNA, LNP-s, No Pre serve, 2-Dose Series ([employer]) 02/18/2022 COVID-19, LNP-s, No Preserve , Chau-sucrose, Ages 12+ (Pfizer) 01/28/2022 DTaP Dipth/Tet/Acell Pertussis (Infanrix), Peds 12/06/2007 HPV Vaccine, 9-Valent 05/14/2018,11/10/2017 Hep A - Hepatitis A (ped/ado le, 1-18 Yrs) 05/14/2018,11/10/2017 IPV - Polio Virus Vaccine (Inact) 12/06/2007 MMR - Measles/Mumps/Rubella Vaccine 12/06/2007 Meningococcal Conjugate Vacc ine (Menactra/Menveo) 05/24/2015 Meningococcal MCV4O Conjugat e Vaccine (Menveo) 01/06/2019 Pneumococcal Conjugate Vacci ne, 20-valent ([id number]) 05/30/2022 Seasonal Influenza, PF, 6 M & [...] money to get more. Never true 07/23/2023 [place] Depression Scale Answer Date Recorded [place] Depression Scale Total 11 07/23/2023 The thought [...] Team (Late st Contact Info) Description 08/20/2023 10:45 AM EDT Office Visit [facility] 132 [facility] [place] [address] Lisset Zavala CNM [address] [place] [address] 08/27/2023 2:30 PM EDT Hem/Onc Treatment Hematology/Oncology Treatment, [address], [place] [phone] Ebony, Chair 7 [facility] [address] [place], [place] [address] [address] 09/02/2023 2:30 PM EDT Hem/Onc Treatment Hematology/Oncology Treatment, [address], [place] [phone] Ebony, Chair 4 Hem Onc Scenery [address] [place], [place] [address] [address] 09/03/2023 2:30 PM EDT Pharmacy Pharmacy, [place] [address] [place], [place] [phone] Clinic, [place] [address] [place], [place] [phone] Health Maintenance Due Date Last Done Comments [...] ONCE PRN Other, Hypersensitivity Reaction, Starting on Thu08/19/23 at 1446, Until Yulisa 08/20/23 at 1445, For 24 hours EPINEPHrine 1 MG/ML inj 0.3 mg 0.3 mg, Intramuscular, ONCE PRN Other, Hypersensitivity Reaction or Anaphylaxis, Starting on Thu08/19/23 at 1446, Until Yulisa 08/20/23 at 1445, For 24 hours hEParin 100 UNIT/ML Lock Flush inj 500 Units 500 Units (5 mL), IV Lock, PRN Other, IV Flush, Starting on Thu08/19/23 at 1446, Until Yulisa 08/20/23 at 1445, For 24 hours, Do not flush if lock, PICC, or central line not in place; IV infusing or unable to flush. Hydrocortisone Sod Suc (PF) (Solu-Cortef) inj 100 mg 100 mg, IV Push, ONCE PRN Other, Hypersensitivity Reaction, Starting on Thu08/19/23 at 1446, Until Yulisa 08/20/23 at 1445, For 24 hours oxygen GAS Inhalation, OXYGEN, First dose on Thu08/19/23 at 1600, Until Discontinued, Device/Managed by: Low [...] Push, PRN Other, IV Flush, Starting on Thu08/19/23 at 1446, Until Yulisa 08/20/23 at 1445, For 24 hours, Do not flush if [...] mL/hr documented in this encounter Care Teams Felt Carbonizer Relationship Specialty Start Date End Date Josephine Mtz MD [address] [place] [address] [place] [address] PCP - General Family Medicine 10/21/21 documented as of this encounter
--- OUTSIDE RECORDS SUMMARY | 2023-10-13 09:03 | External Medical Summary | Summary of Care ---
Author Name Unknown Organization [facility] Address [address] [place] [address] Phone [phone] Care Team Providers Care Ship Manager Name Role Phone Josephine Mtz MD Primary Care Prov ider Encounter Details Date Type Department Care Team (Late st Contact Info) Description 08/11/2023 Orders Only Hematology/Oncology Treatment, [place] [address] [place] [address] [place], ZIYAD Rivera [address] [place] [address] Allergies No known active allergiesdocumented as of [...] (Menveo) 01/06/2019 Pneumococcal Conjugate Vacci ne, 20-valent ([id number]) 05/30/2022 Seasonal Influenza, PF, 6 M & [...] money to get more. Never true 07/23/2023 [place] Depression Scale Answer Date Recorded [place] Depression Scale Total 11 07/23/2023 The thought [...] 2:30 PM EDT Hem/Onc Treatment Hematology/Oncology Treatment, [address] [phone] Ebony, Chair 7 Hem On[address] [place] [address] 09/02/2023 2:30 PM EDT Hem/Onc Treatment Hematology/Oncology Treatment, [address] [phone] Ebony, Chair 3 [facility] [address] [place], [place] [address] [address] 09/03/2023 10:45 AM EDT Office Visit Gynecology/Obstetrics [facility] [address] [place] [address] Lisset Zavala CNM [address] [place] [address] 09/03/2023 2:30 PM EDT Pharmacy Pharmacy, [address] [address] Clinic, [place] [address] [facility] [place] [address] Health Maintenance Due Date Last Done Comments [...] filedocumented as of this encounter Care Teams Ship Manager Relationship Specialty Start Date End Date Josephine Mtz MD [address] [place] [address] [place] [address] PCP - General Family Medicine 10/21/21 documented as of this encounter
--- OUTSIDE RECORDS SUMMARY | 2023-10-13 09:03 | External Medical Summary | Summary of Care ---
Author Name Unknown Organization [facility] Address [address] [place] [address] Phone [phone] Care Team Providers Care Shared Services And Outsourcing Manager Name Role Phone Josephine Mtz MD Primary Care Prov ider Reason for Visit * Reason Comments Return Visit Encounter Details Date Type Department Care Team ([facility] st Contact Info) Description 08/20/2023 10:45 AM EDT Office Visit Gynecology/Obstetric [facility] 132 [facility] [place] [address] Lisset Zavala, [place] [address] [facility] [place] [phone] Supervision of other normal , antepartum*; Depression [...] 0 Active Butenafine HCl 1 % External CreamIndications:Berencie a cruris Apply to groin once daily [...] mRNA, LNP-s, No Pre serve, 2-Dose Series ([employer]) 02/18/2022 COVID-19, LNP-s, No Preserve , Chau-sucrose, Ages 12+ (Pfizer) 01/28/2022 DTaP Dipth/Tet/Acell Pertussis (Infanrix), Peds 12/06/2007 HPV Vaccine, 9-Valent 05/14/2018,11/10/2017 Hep A - Hepatitis A (ped/ado le, 1-18 Yrs) 05/14/2018,11/10/2017 IPV - Polio Virus Vaccine (Inact) 12/06/2007 MMR - Measles/Mumps/Rubella Vaccine 12/06/2007 Meningococcal Conjugate Vacc ine (Menactra/Menveo) 05/24/2015 Meningococcal MCV4O Conjugat e Vaccine (Menveo) 01/06/2019 Pneumococcal Conjugate Vacci ne, 20-valent ([id number]) 05/30/2022 Seasonal Influenza, PF, 6 M & [...] money to get more. Never true 07/23/2023 [place] Depression Scale Answer Date Recorded [place] Depression Scale Total 11 07/23/2023 The thought [...] Sign Reading Time Taken Comments Blood Pressure 138/72 08/20/2023 10:45 AM EDT Pulse - - Temperature - - Respiratory Rate - - Oxygen Saturation - - Inhaled Oxygen Concentration - - Weight 66.7 kg (147 lb) 08/20/2023 10:45 AM EDT Height - - Body Mass Index - - documented in this encounter Progress Notes * Lisset Zavala CNM - 08/20/2023 10:53 AM EDT Samuel Amador is a 22 year old female here for her routine OB appointment at 32w0d Her Estimated Date of Delivery: 10/15/23 REVIEW OF SYSTEMS: She affirms movement. Denies vaginal bleeding, LOF, contractions, N/V. Reports mild cramping 2-3 times daily. Denies a ALBRECHT today. Had a headache yesterday, lasted 1 hour, relieved with tylenol. Had only one recent headache on Wednesday 08/16 which was unrelieved with tylenol and kept her up overnight. 3 weeks ago she was seeing "dots" which has resolved. Reports RUQ pain after laying on her right side. Denies any RUQ pain today. Checking BP at least once daily in the evening. On 08/16/23, BP was 140/60 per patient report. Otherwise BP at home was <140/90. PHYSICAL EXAM: Filed Vitals: 08/20/23 1045 BP: 138/72 Weight: 66.7 kg (147 lb) +FHT 140-150 bpm Fundal height: 30cm ASSESSMENT/PLAN: (O99.340, F32.A) Depression complicating , antepartum Plan: -Taking Wellbutrin, feels well (R79.89) Elevated LFTs Plan: -Repeat CMP today (ordered by Dr. Medina) (O99.019) Antepartum anemia complicating Plan: -Continue Vitron C PO BID (O16.3) Elevated blood pressure affecting in third trimester, antepartum Plan: PLT, PROTEIN/ CREATININE RATIO, URINE, URINE PROTEIN, 24 HOUR -PLT, P/C ratio, 24 hour protein ordered -CMP to be drawn today -BP 138/87 today. BP was 147/70 on 08/19/23 -Reviewed pre-eclampsia warning signs in detail. Patient to call for ongoing or worsening ALBRECHT, vision changes, or RUQ pain. (Z34.80) Supervision of other normal , antepartum (primary encounter diagnosis) Plan: PLT, PROTEIN/ CREATININE RATIO, URINE - labor precautions and kick counts reviewed - RTO in 2 weeks for RHEA and in 3-4 days for BP check Lisset Zavala CNM * Arti Ludwig LPN - 08/20/2023 10:45 AM EDT Pt is currently 32w0d with an Estimated Date of Delivery: 10/15/23 - Checking blood pressures, during iron infusion 140s/70s documented in this encounter Plan of Treatment Upcoming Encounters Date Type Department Care Team (Late st Contact Info) Description 08/24/2023 10:30 AM EDT Nurse Only Gynecology/Obstetrics [address] [place] [address] [place], Nurse Obgyn Injection [address] [place] [address] 08/27/2023 2:30 PM EDT Hem/Onc Treatment Hematology/Oncology Treatment, [place] [address] [place] [address] Ebony, Chair 7 Hem Onc Scenery 200 [facility] [place] [address] 09/02/2023 2:30 PM EDT Hem/Onc Treatment Hematology/Oncology Treatment, [place] 200 [facility], [place] [phone] Ebony, Chair 3 Hem Onc [facility] [address] [facility] [place] [address] 09/03/2023 10:45 AM EDT Office Visit Gynecology/Obstetrics [facility] [address] Lisset Zavala, [address] [address] 09/03/2023 2:30 PM EDT Pharmacy Pharmacy, [place] [address] [place] [address] Clinic, [facility] [address] [place] [address] Pending Results Name Type Priority Associated Diagnoses Date /Time PROTEIN/ CREATININE RATIO, URINE Lab Routine Elevated blood pressure affecting in third trimester, antepartum 08/20/2023 11:16 AM EDT Scheduled Orders Name Type Priority Associated Diagnoses Orde r Schedule URINE PROTEIN, 24 HOUR Lab Routine Elevated blood pressure affecting in third trimester, antepartum Ordered: 08/20/2023 Health Maintenance Due Date Last Done Comments Yearly Wellness Visit 10/11/2022 10/11/2021 , 08/31/2020, 01/06/2019, Additional history exists COVID-19 Vaccine ( 2022-2 4 season) 2023 02/18/2022, 01/28/2022 Influenza [...] Not on filedocumented as of this encounter Results * PLT (08/20/2023 11:12 AM EDT) PLT 254 140 - 400 K/uL 08/20/2023 11:34 AM EDT [facility] [place] [facility] Blood Venous blood specimen / Unknown Venipuncture / Unknown 08/20/2023 11:12 AM EDT 08/20/2023 11:12 AM EDT Lisset Zavala CNM LAB BLOOD ORDERABLES [facility] [place] [facility] [place] [address] documented in this encounter Visit Diagnoses Diagnosis Supervision of other normal , antepartum- Primary Depression complicating , antepartum Mental disorders of mother, antepartum Elevated LFTs Other abnormal blood chemistry Antepartum anemia complicating Anemia, antepartum Elevated blood pressure affecting in third trimester, antepartum documented in this encounter Care Teams Shared Services And Outsourcing Manager Relationship Specialty Start Date End Date Josephine Mtz MD [address] [place] [address] [place] [phone] PCP - General Family Medicine 10/21/21 documented as of this encounter
--- OUTSIDE RECORDS SUMMARY | 2023-10-13 09:04 | External Medical Summary | Summary of Care ---
Author Name Unknown Organization [facility] Address [address] [place] [address] Phone [phone] Care Team Providers Care Wood Buffer Name Role Phone Josephine Mtz MD Primary Care Prov ider Reason for Visit * Reason Onset Date Comments Returning Call 08/11/2023 Encounter Details Date Type Department Care Team (Late st Contact Info) Description 08/11/2023 Telephone Pharmacy Call Center [address] [place], [place] [phone] Clinic, [place] [address] [place] [address] Returning Call Allergies No known active allergiesdocumented as of this encounter (statuses as of 08/17/2023) Medications Medication Sig Dispensed Refills Start Date [...] as of this encounter (statuses as of 08/17/2023) Active Problems Problem Noted Date Diagnosed Date [...] as of this encounter (statuses as of 08/17/2023) Resolved Problems Problem Noted Date Diagnosed Date [...] as of this encounter (statuses as of 08/17/2023) Immunizations Name Administration Dates Next Due COVID-19 [...] (Menveo) 01/06/2019 Pneumococcal Conjugate Vacci ne, 20-valent ([id number]) 05/30/2022 Pneumococcal Conjugate Vacci ne, 7 Valent [...] money to get more. Never true 07/23/2023 [place] Depression Scale Answer Date Recorded [place] Depression Scale Total 11 07/23/2023 The thought [...] encounter Miscellaneous Notes * Telephone Encounter - Donna Cifuentes OSA - 08/17/2023 9:24 AM EDT Called and scheduled pt for appt * Telephone Encounter - Donna Cifuentes OSA - 08/13/2023 8:30 AM EDT Left message for pt to call in and schedule * Telephone Encounter - Mary De Anda RN - 08/13/2023 7:40 AM EDT [place] is signed. Scheduling: please call patient to schedule 2 hour appt "venofer 05/13" (Janny Backer). Thanks! Patient will need venofer once a week x3 doses. * Telephone Encounter - Janny Lamb LPN - 08/11/2023 3:01 PM EDT Order received for Venofer. [place] plan built and routed to Anemia Clinic. No Prior Auth required. Awaiting sign-off prior to scheduling patient. * Telephone Encounter - Sheron Reyes PHARM Tech - 08/11/2023 1:41 PM EDT Caller's name: Samuel Preferred call back number(OFFICE NUMBER FOR ): [phone] Reason for call: Pt returning call to schedule an appt. Please advise and return her call. Thank you, Sheron Reyes E Learning Manager Centralized Clinical Pharmacy Services 08/11/2023,1:41 PM documented in this encounter Plan of Treatment Upcoming Encounters Date Type Department Care Team (Late st Contact Info) Description 08/19/2023 10:00 AM EDT Pharmacy Pharmacy, [place] [address] [place] [address] Clinic, Anemia [address] [place] [address] 08/19/2023 2:45 PM EDT Hem/Onc Treatment Hematology/Oncology Treatment, [place] 200 [place] [phone] Ebony, Chair 9 Hem Onc [facility] [address] [facility] [phone] 08/20/2023 10:45 AM EDT Office Visit Gynecology/Obstetrics [facility] [address] [place] [address] Lisset Zavala, [facility] [address] [place] [address] Health Maintenance Due Date Last Done Comments Yearly Wellness Visit 10/11/2022 10/11/2021 , 08/31/2020, 01/06/2019, Additional history exists COVID-19 Vaccine (3 2022-2 4 season) 2023 02/18/2022, 01/28/2022 Influenza Vaccine (FLU shot) (Season Ended) 2024 05/30/2022, 03/15/2018, 04/18/2010, Additional history exists Gonorrhea / Chlamydia Screen 03/03/2024, 01/09/2022, 08/31/2020, Additional history exists Depression Screening 07/22/2024 07/23/2023 DTaP,Tdap,and Td Vaccines (8 - Td or [...] filedocumented as of this encounter Care Teams Wood Buffer Relationship Specialty Start Date End Date Josephine Mtz MD [address] [place] [address] [place] [address] PCP - General Family Medicine 10/21/21 documented as of this encounter
--- OUTSIDE RECORDS SUMMARY | 2023-10-13 09:04 | External Medical Summary | Summary of Care ---
Author Name Unknown Organization [facility] Address [address] [place] [address] Phone [phone] Care Team Providers Care Iron Guardrail Installer Name Role Phone Josephine Mtz MD Primary Care Prov ider Encounter Details Date Type Department Care Team (Late st Contact Info) Description 08/12/2023 Orders Only Pharmacy, [place] [address] [place] [address] [facility] [address] [place] [address] Allergies No known active allergiesdocumented as of this encounter (statuses as of 08/12/2023) Medications Medication Sig Dispensed Refills Start Date [...] as of this encounter (statuses as of 08/12/2023) Active Problems Problem Noted Date Diagnosed Date [...] as of this encounter (statuses as of 08/12/2023) Resolved Problems Problem Noted Date Diagnosed Date [...] as of this encounter (statuses as of 08/12/2023) Immunizations Name Administration Dates Next Due COVID-19 [...] (Menveo) 01/06/2019 Pneumococcal Conjugate Vacci ne, 20-valent ([id number]) 05/30/2022 Seasonal Influenza, PF, 6 M & [...] money to get more. Never true 07/23/2023 [place] Depression Scale Answer Date Recorded [place] Depression Scale Total 11 07/23/2023 The thought [...] Description 08/19/2023 10:00 AM EDT Pharmacy Pharmacy, [address] [id number] Clinic, [address] [address] 08/20/2023 10:45 AM EDT Office Visit Gynecology/Obstetrics [facility] 132 [facility] [place] [address] Lisset Zavala, [facility] [address] [facility] [address] Health Maintenance Due Date Last Done Comments [...] filedocumented as of this encounter Care Teams Iron Guardrail Installer Relationship Specialty Start Date End Date Josephine Mtz MD [address] [place] [address] [place] [address] PCP - General Family Medicine 10/21/21 documented as of this encounter
--- OUTSIDE RECORDS SUMMARY | 2023-10-13 09:04 | External Medical Summary | Summary of Care ---
Author Name Unknown Organization [facility] Address [address] [place] [address] Phone [phone] Care Team Providers Care Client Insights Consultant Name Role Phone Josephine Mtz MD Primary Care Prov ider Encounter Details Date Type Department Care Team (Late st Contact Info) Description 08/12/2023 Orders Only Pharmacy, [place] [address] [place] [address] [facility] [address] [place] [address] Allergies No known active allergiesdocumented [...] (Menveo) 01/06/2019 Pneumococcal Conjugate Vacci ne, 20-valent ([id number]) 05/30/2022 Seasonal Influenza, PF, 6 M & [...] money to get more. Never true 07/23/2023 [place] Depression Scale Answer Date Recorded [place] Depression Scale Total 11 07/23/2023 The thought [...] Description 08/19/2023 10:00 AM EDT Pharmacy Pharmacy, [address] [id number] Clinic, [address] [address] 08/20/2023 10:45 AM EDT Office Visit Gynecology/Obstetrics [facility] 132 [facility] [place] [address] Lisset Zavala, [facility] 400 [facility] [address] Health Maintenance Due Date [...] filedocumented as of this encounter Care Teams Client Insights Consultant Relationship Specialty Start Date End Date Josephine Mtz MD [address] [place] [address] [place] [address] PCP - General Family Medicine 10/21/21 documented as of this encounter
--- OUTSIDE RECORDS SUMMARY | 2023-10-13 09:04 | External Medical Summary | Summary of Care ---
Author Name Unknown Organization [facility] Address [address] [place] [address] Phone [phone] Care Team Providers Care Social Organization Professor Name Role Phone Josephine Mtz MD Primary Care Prov ider Reason for Visit * Reason Onset Date Comments Anemia Follow-Up 08/19/2023 Encounter Details Date Type Department Care Team (Late st Contact Info) Description 08/19/2023 10:00 AM EDT Pharmacy Pharmacy, [place] [address] [place], [place] [phone] Clinic, [facility] [address] [place], [place] [phone] Iron deficiency anemia, unspecified iron deficiency anemia type* Allergies No known active allergiesdocumented as of this encounter (statuses as of 08/19/2023) Medications Medication Sig Dispensed Refills Start Date [...] as of this encounter (statuses as of 08/19/2023) Active Problems Problem Noted Date Diagnosed Date [...] as of this encounter (statuses as of 08/19/2023) Resolved Problems Problem Noted Date Diagnosed Date [...] as of this encounter (statuses as of 08/19/2023) Immunizations Name Administration Dates Next Due COVID-19 mRNA, LNP-s, No Pre serve, 2-Dose Series ([employer]) 02/18/2022 COVID-19, LNP-s, No Preserve , Chau-sucrose, Ages 12+ (Pfizer) 01/28/2022 DTaP Dipth/Tet/Acell Pertussis (Infanrix), Peds 12/06/2007 HPV Vaccine, 9-Valent 05/14/2018,11/10/2017 Hep A - Hepatitis A (ped/ado le, 1-18 Yrs) 05/14/2018,11/10/2017 IPV - Polio Virus Vaccine (Inact) 12/06/2007 MMR - Measles/Mumps/Rubella Vaccine 12/06/2007 Meningococcal Conjugate Vacc ine (Menactra/Menveo) 05/24/2015 Meningococcal MCV4O Conjugat e Vaccine (Menveo) 01/06/2019 Pneumococcal Conjugate Vacci ne, 20-valent ([id number]) 05/30/2022 Seasonal Influenza, PF, 6 M & [...] money to get more. Never true 07/23/2023 [place] Depression Scale Answer Date Recorded [place] Depression Scale Total 11 07/23/2023 The thought [...] as of this encounter Progress Notes * Connie Dsouza RPh - 08/19/2023 3:16 PM EDT Patient received first dose of Venofer 300 mg x 3 repletion series on 08/18 and appeared to have tolerated it without issue. Next scheduled: 08/26 Scheduled to be completed: 09/01 GA: 31w6d Estimated Date of Delivery: 10/15/23 Follow-up after completion of series to schedule repeat labs if appropriate prior to delivery. Anemia Clinic will continue to follow. Thank you for allowing us to participate in the care of thispatient. Thanks, Connie Dsouza [facility] Clinical Pharmacist [facility] Anemia Clinic (P: [phone]) 08/19/2023 3:16 PM documented in this encounter Plan of Treatment Upcoming Encounters Date Type Department Care Team (Late st Contact Info) Description 08/20/2023 10:45 AM EDT Office Visit Gynecology/Obstetrics [facility] [address] [place] [address] Lisset Zavala CNM [address] [place] [address] 08/27/2023 2:30 PM EDT Hem/Onc Treatment Hematology/Oncology Treatment, [place] 200 [facility] [place] [phone] Ebony, Chair 7 Hem Onc [address] [place] [address] 09/02/2023 2:30 PM EDT Hem/Onc Treatment Hematology/Oncology Treatment, [place] 200 [facility] [place] [phone] Ebony, Chair 4 Hem Onc [address] [place] [address] 09/03/2023 2:30 PM EDT Pharmacy Pharmacy, [address] [id number] Clinic, [address] [address] Health Maintenance Due Date Last Done Comments [...] Primary documented in this encounter Care Teams Social Organization Professor Relationship Specialty Start Date End Date Josephine Mtz MD [address] [place] [address] [place] [address] PCP - General Family Medicine 10/21/21 documented as of this encounter
--- OUTSIDE RECORDS SUMMARY | 2023-10-13 09:04 | External Medical Summary | Summary of Care ---
Author Name Unknown Organization [facility] Address [address] [place] [address] Phone [phone] Care Team Providers Care Chief Ii Dispatcher Name Role Phone Josephine Mtz MD Primary Care Prov ider Reason for Visit * Reason Onset Date Comments Anemia Follow-Up 08/11/2023 Encounter Details Date Type Department Care Team (Late st Contact Info) Description 08/11/2023 4:00 PM EDT Pharmacy Pharmacy, [place] [address] [place], [place] [phone] Clinic, [place] [address] [place], [place] [phone] Iron deficiency anemia, unspecified iron deficiency anemia type* Allergies No known active allergiesdocumented as of this encounter (statuses as of 08/11/2023) Medications Medication Sig Dispensed Refills Start Date [...] as of this encounter (statuses as of 08/11/2023) Active Problems Problem Noted Date Diagnosed Date [...] as of this encounter (statuses as of 08/11/2023) Resolved Problems Problem Noted Date Diagnosed Date [...] as of this encounter (statuses as of 08/11/2023) Immunizations Name Administration Dates Next Due COVID-19 mRNA, LNP-s, No Pre serve, 2-Dose Series ([employer]) 02/18/2022 COVID-19, LNP-s, No Preserve , Chau-sucrose, Ages 12+ (Pfizer) 01/28/2022 DTaP Dipth/Tet/Acell Pertussis (Infanrix), Peds 12/06/2007 HPV Vaccine, 9-Valent 05/14/2018,11/10/2017 Hep A - Hepatitis A (ped/ado le, 1-18 Yrs) 05/14/2018,11/10/2017 IPV - Polio Virus Vaccine (Inact) 12/06/2007 MMR - Measles/Mumps/Rubella Vaccine 12/06/2007 Meningococcal Conjugate Vacc ine (Menactra/Menveo) 05/24/2015 Meningococcal MCV4O Conjugat e Vaccine (Menveo) 01/06/2019 Pneumococcal Conjugate Vacci ne, 20-valent ([id number]) 05/30/2022 Seasonal Influenza, PF, 6 M & [...] money to get more. Never true 07/23/2023 [place] Depression Scale Answer Date Recorded [place] Depression Scale Total 11 07/23/2023 The [...] of this encounter Progress Notes * Connie Dsouza, [facility] - 08/11/2023 1:22 PM EDT Patient Phone Numbers Patient referred by ZIYAD Reddy for evaluation of anemia by the Anemia Clinic. Called patient to introduce role/clinic and to review labs from 07/22. Phones goes directly to [employer]. LMOVM. Hgb: 10.7 g/dL TSAT: 12 % Ferritin: 18 ng/mL B12: 279 pg/mL FA: >20.0 ng/mL GA: 30w5d Estimated Date of Delivery: 10/15/23 Hgb is below target range for the third trimester. Iron studies below target range. B12 level belowtarget range. FA level within target range. Per chart review, patient is taking Vitrin C twice daily and B 12 1000mcg daily and appears to be tolerating it well. Patient qualifies for IV iron repletion. Tentative Plan: Venofer 300 mg IV weekly x 3 doses at SP. Orders need to be placed and routed to appropriate parties if patient agreeable to intervention. Follow-up labs to be scheduled ~4-6 weeks after iron repletion completed if appropriate prior to delivery. Anemia Clinic will continue to follow. Thank you for allowing us to participate in the care of thispatient. Thanks, Connie Dsouza [facility] Clinical Pharmacist [facility] Anemia Clinic (P: [phone]) documented in this encounter Plan of Treatment Upcoming Encounters Date Type Department Care Team (Late st Contact Info) Description 08/19/2023 4:00 PM EDT Pharmacy Pharmacy, [place] [address] [place] [address] Clinic, Anemia [address] [place] [address] 08/20/2023 10:45 AM EDT Office Visit Gynecology/Obstetrics [facility] 132 [facility] [place] [address] Lisset Zavala CNM 400 [facility] [place] [phone] Health Maintenance Due Date Last Done Comments [...] Additional history exists GARDASIL-HPV IMMUNIZATION SERIES Completed 05/14/1911/10/2017 MENINGOCOCCAL (MENACTRA/MENVEO) Completed , 05/24/2015 Pneumococcal Vaccine: Pediat rics (0 to 5 Years) and At-Risk Patients (6 to 64 Years) Completed 05/30/2022 documented as of this encounter Medical Devices Not on filedocumented as of this encounter Visit Diagnoses Diagnosis Iron deficiency anemia, unspecified iron deficiency anemia type- Primary documented in this encounter Care Teams Chief Ii Dispatcher Relationship Specialty Start Date End Date Josephine Mtz MD [address] [place] [address] [place] [address] PCP - General Family Medicine 10/21/21 documented as of this encounter
--- OUTSIDE RECORDS SUMMARY | 2023-10-13 09:04 | External Medical Summary | Summary of Care ---
Author Name Unknown Organization [facility] Address [address] [place] [address] Phone [phone] Care Team Providers Care Evaporator Repairer Name Role Phone Josephine Mtz MD Primary Care Prov ider Reason for Visit * Reason Onset Date Comments Returning Call 08/11/2023 Encounter Details Date Type Department Care Team (Late st Contact Info) Description 08/11/2023 Telephone Pharmacy Call Center [address] [place], [place] [id number] Clinic, Anemia [address] [place] [address] Returning Call Allergies No known active allergiesdocumented as of this encounter (statuses as of 08/13/2023) Medications Medication Sig Dispensed Refills Start Date [...] as of this encounter (statuses as of 08/13/2023) Active Problems Problem Noted Date Diagnosed Date [...] as of this encounter (statuses as of 08/13/2023) Resolved Problems Problem Noted Date Diagnosed Date [...] as of this encounter (statuses as of 08/13/2023) Immunizations Name Administration Dates Next Due COVID-19 [...] (Menveo) 01/06/2019 Pneumococcal Conjugate Vacci ne, 20-valent ([id number]) 05/30/2022 Seasonal Influenza, PF, 6 M & [...] money to get more. Never true 07/23/2023 [place] Depression Scale Answer Date Recorded [place] Depression Scale Total 11 07/23/2023 The thought [...] Anda RN - 08/13/2023 7:40 AM EDT [place] is signed. Scheduling: please call patient to schedule 2 hour appt "venofer 05/13" (Janny Backer). Thanks! Patient will need venofer once a week x3 doses. * Telephone Encounter - Janny Lamb LPN - 08/11/2023 3:01 PM EDT Order received for Venofer. [place] plan built and routed to Anemia Clinic. No Prior Auth required. Awaiting sign-off prior to scheduling patient. * Telephone Encounter - Sheron Reyes PHARM Tech - 08/11/2023 1:41 PM EDT Caller's name: Samuel Preferred call back number(OFFICE NUMBER FOR ): [phone] Reason for call: Pt returning call to schedule an appt. Please advise and return her call. Thank you, Sheron Reyes Cloak Room Attendant [facility] 08/11/2023,1:41 PM documented in this encounter Plan of Treatment Upcoming Encounters Date Type Department Care Team (Late st Contact Info) Description 08/19/2023 10:00 AM EDT Pharmacy Pharmacy, [address] [address] Clinic, [address] [id number] 08/20/2023 10:45 AM EDT Office Visit Gynecology/Obstetrics [facility] [address] [place] [address] Lisset Zavala, [facility] [address] [place] [place] [address] Health Maintenance Due Date Last Done [...] filedocumented as of this encounter Care Teams Evaporator Repairer Relationship Specialty Start Date End Date Josephine Mtz MD [address] [place] [address] [place] [id number] PCP - General Family Medicine 10/21/21 documented as of this encounter
--- OUTSIDE RECORDS SUMMARY | 2023-10-13 09:04 | External Medical Summary ---
Author Name Unknown Address Unknown Organization [facility] [address] [place] [address] Laboratory Report Ordering Provider Test Date Status CELESTINA MELCHOR 08/20/2023 11:12:11 Final Observation Date Value Abnormality Reference (Units ) Status BUN 08/20/2023 11:12:11 6 6-20 (mg/dL) Final Creatinine 08/20/2023 11:12:11 0.7 0.5-1.0 (mg/dL) Final Glomerular filtration rate/1.73 sq M.predicted [Volume Rate/Area] in Serum, Plasma or Blood by Creatinine-based formula (CKD-EPI) 08/20/2023 11:12:11 >90 >=60 (mL/min) Final eGFR is calculated based on the CKD-EPI 2020 equation Sodium 08/20/2023 11:12:11 138 135-146 (m mol/L) Final Potassium 08/20/2023 11:12:11 3.4 Below low normal 3.5 -5.1 (mmol/L) Final Cl 08/20/2023 11:12:11 102 98-107 (mm ol/L) Final CO2 08/20/2023 11:12:11 22 22-32 (mmo l/L) Final Anion gap 08/20/2023 11:12:11 14 7-15 (mmol /L) Final Glucose 08/20/2023 11:12:11 85 70-120 (mg /dL) Final Albumin 08/20/2023 11:12:11 3.6 Below low normal 3.8 -5.0 (g/dL) Final AST (Aspartate aminotransferase) 08/20/2023 11:12:11 28 10-35 (U/L) Fin al Alk Phos 08/20/2023 11:12:11 84 35-130 (U/ L) Final Bilirubin, Total 08/20/2023 11:12:11 0.4 <=1 .2 (mg/dL) Final Calcium 08/20/2023 11:12:11 9.6 8.4-10.2 ( mg/dL) Final Protein 08/20/2023 11:12:11 6.3 6.0-8.3 (g /dL) Final ALT (Alanine aminotransferase) 08/20/2023 11:12:11 24 10-35 (U/L) Nima kelly Performing Location [facility] [place] [address] [facility] [address]
--- OUTSIDE RECORDS SUMMARY | 2023-10-13 09:04 | External Medical Summary | Summary of Care ---
Author Name Unknown Organization [facility] Address [address] [place] [address] Phone [phone] Care Team Providers Care Steamship Agent Name Role Phone Josephine Mtz MD Primary Care Prov ider Reason for Referral * Evaluate & Treat - Unlimited Visits (Within 10 days (routine)) Specialty Diagnoses / Procedures Referred By Spencer estrada Referred To Contact Janny Brown CRNP [address] [place] [address] Referral ID Status Reason Start Date Expiration Date V isits Requested Visits Authorized Specialty Services Required Question Answer Referral Priority Within 10 days (routine) Where should this appointment be scheduled? [facility] Reason for Visit * Reason Onset Date Comments Test Results 07/24/2023 Encounter Details Date Type Department Care Team (Late st Contact Info) Description 07/24/2023 Telephone Gynecology/Obstetrics [facility] [address] [place] [address] Janny Brown CRNP [address] [place] [address] Test Results Allergies No known active allergiesdocumented as of this encounter (statuses as of 07/24/2023) Medications Medication Sig Dispensed Refills Start Date [...] as of this encounter (statuses as of 07/24/2023) Active Problems Problem Noted Date Diagnosed Date Antepartum anemia complicating 024 Overview: Hgb 10.6 [...] as of this encounter (statuses as of 07/24/2023) Resolved Problems Problem Noted Date Diagnosed Date [...] as of this encounter (statuses as of 07/24/2023) Immunizations Name Administration Dates Next Due COVID-19 mRNA, LNP-s, No Pre serve, 2-Dose Series ([employer]) 02/18/2022 COVID-19, LNP-s, No Preserve , Chau-sucrose, Ages 12+ (Pfizer) 01/28/2022 DTaP Dipth/Tet/Acell Pertussis (Infanrix), Peds 12/06/2007 HPV Vaccine, 9-Valent 05/14/2018,11/10/2017 Hep A - Hepatitis A (ped/ado le, 1-18 Yrs) 05/14/2018,11/10/2017 IPV - Polio Virus Vaccine (Inact) 12/06/2007 MMR - Measles/Mumps/Rubella Vaccine 12/06/2007 Meningococcal Conjugate Vacc ine (Menactra/Menveo) 05/24/2015 Meningococcal MCV4O Conjugat e Vaccine (Menveo) 01/06/2019 Pneumococcal Conjugate Vacci ne, 20-valent ([id number]) 05/30/2022 Seasonal Influenza, PF, 6 M & [...] money to get more. Never true 07/23/2023 [place] Depression Scale Answer Date Recorded [place] Depression Scale Total 11 07/23/2023 The thought [...] encounter Miscellaneous Notes * Telephone Encounter - Joyce Mendes RN - 07/24/2023 8:46 AM EDT Patient called and made aware. She verbalized understanding . Agreeable to blood management referral. * Telephone Encounter - Janny Brown CRNP - 07/24/2023 8:20 AM EDT Additionally: blood mgmt recommends oral vitamin B12, sending this to her pharmacy to take daily. ZIYAD Pardo * Telephone Encounter - Janny Brwon CRNP - 07/24/2023 8:09 AM EDT Normal 1 hr glucose. Her CBC shows anemia; because her hgb is <11, recommend iron infusions per [facility] protocol. Already taking oral iron. Will place referral and their team will contact her to schedule. ZIYAD Pardo documented in this encounter Plan of Treatment Upcoming Encounters Date Type Department Care Team (Late st Contact Info) Description 08/06/2023 3:15 PM EDT Office Visit Gynecology/Obstetrics [facility] [address] [facility] [place] [address] Emelia Shah MD [address] [place] [address] [place] [address] Scheduled Referrals Name Type Priority Associated Diagnoses Orde r Schedule BLOOD MANAGEMENT REFERRAL Referral Within 10 days (routine) Antepartum anemia complicating Ordered: 07/24/2023 Health Maintenance Due Date Last Done Comments Yearly Wellness Visit 10/11/2022 10/11/2021 , 08/31/2020, 01/06/2019, Additional history exists COVID-19 Vaccine (3 - 2022-2 4 season) 2023 02/18/2022, 01/28/2022 Influenza Vaccine (FLU shot) (#1) 2023 05/30/2022, 03/15/2018, 04/18/2010, Additional history exists Gonorrhea [...] antepartum documented in this encounter Care Teams Steamship Agent Relationship Specialty Start Date End Date Josephine Mtz MD [address] [place] [address] [place] [phone] PCP - General Family Medicine 10/21/21 documented as of this encounter
--- OUTSIDE RECORDS SUMMARY | 2023-10-13 09:04 | External Medical Summary | Summary of Care ---
Author Name Unknown Organization [facility] Address [address] [place] [address] Phone [phone] Care Team Providers Care Voucher Examiner Name Role Phone Josephine Mtz MD Primary Care Prov ider Reason for Referral * Evaluate & Treat - Unlimited Visits (Within 10 days (routine)) - Pending Review Specialty Diagnoses / Procedures Referred By Spencer t Referred To Contact Pharmacist / Pharmacy Diagnoses [place] (iron deficiency anemia) Janny Brown CRNP [address] [place] [address] Referral ID Status Reason Start Date Expiration Date Visits Requested Visits Authorized [id number] Pending Review Specialty Services Required 07/24/2023 99 99 Question Answer Referral Priority Within 10 days (routine) Where should this appointment be scheduled? [place] Referring Provider Role: Specialist Specialty: charcoal kiln burner Reason for Referral: Anemia Comments Pharmacist Medication Therapy Management: Iron deficiency anemia Jayesh Kevin RN Reason for Visit * Reason Onset Date Comments Blood Management Program 07/24/2023 Encounter Details Date Type Department Care Team (Late st Contact Info) Description 07/24/2023 Telephone Patient Blood Management, [place] [address] [place] [address] Janny Brown CRNP [address] [place] [address] Blood Management Program Allergies No known active allergiesdocumented as of this encounter (statuses as of 08/10/2023) Medications Medication Sig Dispensed Refills Start Date [...] as of this encounter (statuses as of 08/10/2023) Active Problems Problem Noted Date Diagnosed Date [...] as of this encounter (statuses as of 08/10/2023) Resolved Problems Problem Noted Date Diagnosed Date [...] as of this encounter (statuses as of 08/10/2023) Immunizations Name Administration Dates Next Due COVID-19 mRNA, LNP-s, No Pre serve, 2-Dose Series ([employer]) 02/18/2022 COVID-19, LNP-s, No Preserve , Chau-sucrose, Ages 12+ ([employer]) 01/28/2022 DTaP Dipth/Tet/Acell Pertussis (Infanrix), Peds 12/06/2007 HPV Vaccine, 9-Valent 05/14/2018,11/10/2017 Hep A - Hepatitis A (ped/ado le, 1-18 Yrs) 05/14/2018,11/10/2017 IPV - Polio Virus Vaccine (Inact) 12/06/2007 MMR - Measles/Mumps/Rubella Vaccine 12/06/2007 Meningococcal Conjugate Vacc ine (Menactra/Menveo) 05/24/2015 Meningococcal MCV4O Conjugat e Vaccine (Menveo) 01/06/2019 Pneumococcal Conjugate Vacci ne, 20-valent ([id number]) 05/30/2022 Seasonal Influenza, PF, 6 M & [...] money to get more. Never true 07/23/2023 [place] Depression Scale Answer Date Recorded [place] Depression Scale Total 11 07/23/2023 The thought [...] encounter Miscellaneous Notes * Telephone Encounter - Jayesh Kevin RN - 07/24/2023 9:05 AM EDT Recommend IV iron per OB MTM guidelines. Patient agreeable, prefers infusion at [facility]. documented in this encounter Plan of Treatment Upcoming Encounters Date Type Department Care Team (Late st Contact Info) Description 08/11/2023 4:00 PM EDT Pharmacy Pharmacy, [place] [address] [place] [address] Clinic, Anemia [address] [place] [address] 08/20/2023 10:45 AM EDT Office Visit Gynecology/Obstetrics [facility] 132 [facility] [place] [address] Lisset Zavala CNM [address] [facility] [place] [address] Scheduled Referrals Name Type Priority Associated Diagnoses Orde r Schedule PHARMACIST MEDS THERAPY MGMT REFERRAL OP Referral Within 10 days (routine) [place] (iron deficiency anemia) Ordered: 07/24/2023 Health Maintenance Due Date Last Done Comments Yearly Wellness Visit 10/11/2022 10/11/2021 , 08/31/2020, 01/06/2019, Additional history exists COVID-19 Vaccine (3 2022- 4 season) 2023 02/18/2022, 01/28/2022 Influenza Vaccine [...] as of this encounter Visit Diagnoses Diagnosis STEWART (iron deficiency anemia)- Primary Iron deficiency anemia, unspecified documented in this encounter Care Teams Voucher Examiner Relationship Specialty Start Date End Date Josephine Mtz MD [address] [place] [address] [place] [phone] PCP - General Family Medicine 10/21/21 documented as of this encounter
--- OUTSIDE RECORDS SUMMARY | 2023-10-13 09:04 | External Medical Summary | Summary of Care ---
Author Name Unknown Organization [facility] Address [address] [place] [address] Phone [phone] Care Team Providers Care Make Up Operator Name Role Phone Josephine Mtz MD Primary Care Prov ider Reason for Visit * Reason Onset Date Comments Anemia Follow-Up 08/05/2023 * Evaluate & Treat - Unlimited Visits (Within 10 days (routine)) - Pending Review Specialty Diagnoses / Procedures Referred By Contac t Referred To Contact Pharmacist / Pharmacy Diagnoses [place] (iron deficiency anemia) Janny Brown CRNP [address] [place] [address] Referral ID Status Reason Start Date Expiration Date Visits Requested Visits Authorized [id number] Pending Review Specialty Services Required 07/24/2023 99 99 Encounter Details Date Type Department Care Team (Late st Contact Info) Description 08/05/2023 4:00 PM EDT Pharmacy Pharmacy, [place] [address] [place], [place] [phone] Clinic, Anemia [address] [place] [address] Iron deficiency anemia, unspecified iron deficiency anemia type* Allergies No known active allergiesdocumented as of this encounter (statuses as of 08/05/2023) Medications Medication Sig Dispensed Refills Start Date [...] as of this encounter (statuses as of 08/05/2023) Active Problems Problem Noted Date Diagnosed Date [...] as of this encounter (statuses as of 08/05/2023) Resolved Problems Problem Noted Date Diagnosed Date [...] as of this encounter (statuses as of 08/05/2023) Immunizations Name Administration Dates Next Due COVID-19 mRNA, LNP-s, No Pre serve, 2-Dose Series ([employer]) 02/18/2022 COVID-19, LNP-s, No Preserve , Chau-sucrose, Ages 12+ (Pfizer) 01/28/2022 DTaP Dipth/Tet/Acell Pertussis (Infanrix), Peds 12/06/2007 HPV Vaccine, 9-Valent 05/14/2018,11/10/2017 Hep A - Hepatitis A (ped/ado le, 1-18 Yrs) 05/14/2018,11/10/2017 IPV - Polio Virus Vaccine (Inact) 12/06/2007 MMR - Measles/Mumps/Rubella Vaccine 12/06/2007 Meningococcal Conjugate Vacc ine (Menactra/Menveo) 05/24/2015 Meningococcal MCV4O Conjugat e Vaccine (Menveo) 01/06/2019 Pneumococcal Conjugate Vacci ne, 20-valent ([id number]) 05/30/2022 Seasonal Influenza, PF, 6 M & [...] money to get more. Never true 07/23/2023 [place] Depression Scale Answer Date Recorded [place] Depression Scale Total 11 07/23/2023 The thought [...] this encounter Progress Notes * Connie Dsouza, [facility] - 08/05/2023 2:12 PM EDT Patient Phone Numbers Patient referred by ZIYAD Reddy for evaluation of anemia by the Anemia Clinic. Called patient to introduce role/clinic and to review labs from 07/22. Phones goes directly to [employer]. DONAL. Hgb: 10.7 g/dL TSAT: 12 % Ferritin: 18 ng/mL B12: 279 pg/mL FA: >20.0 ng/mL GA: 29w6d Estimated Date of Delivery: 10/15/23 Hgb is [...] the care of thispatient. Thanks, Connie Dsouza [facility] Clinical Pharmacist [facility] Anemia Clinic (P: [phone]) 08/05/2023 2:12 PM documented in this encounter Plan of Treatment Upcoming Encounters Date Type Department Care Team (Late st Contact Info) Description 08/06/2023 3:15 PM EDT Office Visit Gynecology/Obstetrics [facility] 132 [facility] [place] [address] Emelia Shah MD [address] [place] [phone] 08/11/2023 4:00 PM EDT Pharmacy Pharmacy, [place] [address] [place] [address] Clinic, Anemia [address] [place] [address] Scheduled Referrals Name Type Priority Associated Diagnoses [...] Primary documented in this encounter Care Teams Make Up Operator Relationship Specialty Start Date End Date Josephine Mtz MD [address] [place] [address] [place] [address] PCP - General Family Medicine 10/21/21 documented as of this encounter
--- OUTSIDE RECORDS SUMMARY | 2023-10-13 09:04 | External Medical Summary | Summary of Care ---
Author Name Unknown Organization [facility] Address [address] [place] [address] Phone [phone] Care Team Providers Care Plant Accountant Name Role Phone Josephine Mtz MD Primary Care Prov ider Reason for Visit * Reason Comments Blood Management Program Encounter Details Date Type Department Care Team (Late st Contact Info) Description 07/24/2023 Documentation Patient Blood Management, [place] [address] [place] [address] Jayesh Kevin, RN Allergies No known [...] (Menveo) 01/06/2019 Pneumococcal Conjugate Vacci ne, 20-valent ([id number]) 05/30/2022 Seasonal Influenza, PF, 6 M & [...] money to get more. Never true 07/23/2023 [place] Depression Scale Answer Date Recorded [place] Depression Scale Total 11 07/23/2023 The thought [...] Progress Notes * Jayesh Kevin RN - 07/24/2023 8:17 AM EDT REFERRAL - Patient Blood Management Name: Samuel Amador REQUESTING SERVICE: Leidy Whitley REASON FOR REFERRAL: new evaluation outpatient, anemia in [facility]: 10/15/23 Anemia Evaluation: Latest Reference Range & Units 07/23/23 11:14 HGB 12.0 - 15.3 g/dL 10.7 (L) HCT 36.0 - 45.2 % 33.0 (L) Iron 33 - 151 ug/dL 55 Iron Binding Capacity 250 - 425 ug/dL 466 (H) Transferrin Saturation Percent 15 - 55 % 12 (L) Ferritin 13 - 150 ng/mL 18 Vitamin B12 232 - 1,245 pg/mL 279 Folic Acid >4.5 ng/mL >20.0 Immature Reticuloctye Fraction 2.5 - 20.6 % 25.5 (H) Reticulocyte Hemoglobin 29.7 - 37.4 pg 36.0 Current Patient Medications: Medications that may impair hemostasis: none Medications that may impair iron absorption: none Patient Refused Blood Transfusion? (e.g. Restorationist): no Possible Contributing Factors: iron deficiency and vitamin B12 deficiency Treatment Recommendations: B12 1000mcg PO daily IV iron per OB MTM guidelines. 07/23 - myG sent 07/23 - Patient returned myG. Agreeable to IV iron at [facility]. Thank you for allowing Blood Management to participate in the care of this patient. documented in this encounter Plan of Treatment Upcoming Encounters Date Type Department Care Team (Late st Contact Info) Description 08/06/2023 3:15 PM EDT Office Visit Gynecology/Obstetrics [facility] [address] [place] [address] Emelia Shah MD [address] [place] [address] [place] [phone] Health Maintenance Due Date Last Done Comments Yearly Wellness Visit 10/11/2022 10/11/2021 , 08/31/2020, 01/06/2019, Additional history exists COVID-19 Vaccine (2022-06 4 season) 2023 02/18/2022, 01/28/2022 Influenza Vaccine [...] filedocumented as of this encounter Care Teams Plant Accountant Relationship Specialty Start Date End Date Josephine Mtz MD [address] [place] [address] [place] [address] PCP - General Family Medicine 10/21/21 documented as of this encounter
--- OUTSIDE RECORDS SUMMARY | 2023-10-13 09:04 | External Medical Summary | Summary of Care ---
Author Name Unknown Organization [facility] Address [address] [place] [address] Phone [phone] Care Team Providers Care Nba Player Name Role Phone Josephine Mtz MD Primary Care Prov ider Reason for Visit * Reason Onset Date Comments Anemia Follow-Up 08/11/2023 Encounter Details Date Type Department Care Team (Late st Contact Info) Description 08/11/2023 4:00 PM EDT Pharmacy Pharmacy, [place] [address] [place], [place] [phone] Clinic, Anemia [address] [place], [place] [phone] Iron deficiency anemia, unspecified iron deficiency anemia [...] mRNA, LNP-s, No Pre serve, 2-Dose Series ([employer]) 02/18/2022 COVID-19, LNP-s, No Preserve , Chau-sucrose, Ages 12+ ([address]) 01/28/2022 DTaP Dipth/Tet/Acell Pertussis (Infanrix), Peds 12/06/2007,03/07/2004,06/05/2003,04/07,02/03/2003 [...] (Menveo) 01/06/2019 Pneumococcal Conjugate Vacci ne, 20-valent ([id number]) 05/30/2022 Pneumococcal Conjugate Vacci ne, 7 Valent [...] money to get more. Never true 07/23/2023 [place] Depression Scale Answer Date Recorded [place] Depression Scale Total 11 07/23/2023 The thought [...] of this encounter Progress Notes * Connie Sparks, [facility] - 08/11/2023 1:22 PM EDT Patient Phone Numbers Patient referred by ZIYAD Reddy for evaluation of anemia by the Anemia Clinic. Called patient to introduce role/clinic and to review labs from 07/22. Hgb: 10.7 g/dL TSAT: 12 % Ferritin: 18 ng/mL B12: 279 pg/mL FA: >20.0 ng/mL GA: 30w5d Estimated Date of Delivery: 10/15/23 Hgb is below target range for the third trimester. Iron studies below target range. B12 level belowtarget range. FA level within target range. Per chart review, patient is taking Vitron C twice daily and B 12 1000mcg daily and appears to be tolerating it well. Patient reports feeling extra tired. Patient qualifies for IV iron repletion. Plan: Venofer 300 mg IV weekly x 3 doses at . Orders placed and routed to appropriate parties. Patient agreeable to intervention. Follow-up labs to be scheduled ~4-6 weeks after iron repletion completed if appropriate prior to delivery. Anemia Clinic will continue to follow. Thank you for allowing us to participate in the care of thispatient. Thanks, Connie Sparks [facility] Clinical Pharmacist [facility] Anemia Clinic (P: [phone]) documented in this encounter Miscellaneous Notes * Addendum Note - Connie Sparks RPh - 08/11/2023 2:07 PM EDTAddended by: CONNIE SPARKS on: 08/11/2023 02:07 PM Modules accepted: Orders documented in this encounter Plan of Treatment Upcoming Encounters Date Type Department Care Team (Late st Contact Info) Description 08/19/2023 10:00 AM EDT Pharmacy Pharmacy, [place] [address] [facility] [place] [address] Clinic, Anemia [address] [place] [address] 08/20/2023 10:45 AM EDT Office Visit Gynecology/Obstetrics [facility] [address] [place] [address] Lisset Zavala, [place] [address] [place] [address] Health Maintenance Due Date Last Done [...] Primary documented in this encounter Care Teams Nba Player Relationship Specialty Start Date End Date Josephine Mtz MD [address] [place] [address] [place] [address] PCP - General Family Medicine 10/21/21 documented as of this encounter
--- OUTSIDE RECORDS SUMMARY | 2023-10-13 09:04 | External Medical Summary ---
Author Name Unknown Address Unknown Organization [facility] [address] [place] [address] Laboratory Report Ordering Provider Test Date Status TON GARCIA 08/20/2023 11:12:11 Final Observation Date Value Abnormality Reference (Units ) Status Platelets 08/20/2023 11:12:11 254 140-400 (K /uL) Final [facility] [place] [address]
--- OUTSIDE RECORDS SUMMARY | 2023-10-13 09:04 | External Medical Summary | Summary of Care ---
Author Name Unknown Organization [facility] Address [address] [place] [address] Phone [phone] Care Team Providers Care Director Software Development Name Role Phone Josephine Mtz MD Primary Care Prov ider Encounter Details Date Type Department Care Team (Late st Contact Info) Description 08/11/2023 Orders Only [facility] [address] [place] [address] BackerJanny CRNP [address] [place] [address] Iron deficiency anemia, unspecified iron deficiency anemia [...] 0 Active Butenafine HCl 1 % External CreamIndications:Bereniec a cruris Apply to groin once daily [...] (Menveo) 01/06/2019 Pneumococcal Conjugate Vacci ne, 20-valent ([id number]) 05/30/2022 Seasonal Influenza, PF, 6 M & [...] money to get more. Never true 07/23/2023 [place] Depression Scale Answer Date Recorded [place] Depression Scale Total 11 07/23/2023 The thought [...] Description 08/11/2023 4:00 PM EDT Pharmacy Pharmacy, [facility] [address] [place] [address] Clinic, Anemia [address] [place] [address] Iron deficiency anemia, unspecified iron deficiency anemia type* 08/19/2023 10:00 AM EDT Pharmacy Pharmacy, [facility] [address] [place] [address] Clinic, Anemia [address] [place] [facility] [place] [id number] 08/20/2023 10:45 AM EDT Office Visit Gynecology/Obstetric s [facility] [address] [place] [address] Lisset Zavala CNM [address] [place] [phone] Health Maintenance Due Date Last Done Comments [...] anemia, unspecified iron deficiency anemia type- Primary Iron deficiency anemia, unspecified iron deficiency anemia type- Primary documented in this encounter Care Teams Director Software Development Relationship Specialty Start Date End Date Josephine Mtz MD [address] [place] [address] [place] [address] PCP - General Family Medicine 10/21/21 documented as of this encounter
--- OUTSIDE RECORDS SUMMARY | 2023-10-13 09:04 | External Medical Summary | Summary of Care ---
Author Name Unknown Organization [facility] Address [address] [place] [address] Phone [phone] Care Team Providers Care Pad Machine Operator Name Role Phone Josephine Mtz MD Primary Care Prov ider Reason for Visit * Reason Comments Return Visit Encounter Details Date Type Department Care Team (Late st Contact Info) Description 08/06/2023 3:15 PM EDT Office Visit Gynecology/Obstetric [facility] 132 [facility] [place] [address] Emelia Shah MD [address] [facility] [place] [address] Elevated LFTs*; 30 weeks gestation of ; Antepartum anemia complicating ; RUQ pain; Hypothyroid in , antepartum; Depression complicating , antepartum; Urinary tract infection in mother during first trimester of Allergies No known active allergiesdocumented as of this encounter (statuses as of 08/07/2023) Medications Medication Sig Dispensed Refills Start Date [...] as of this encounter (statuses as of 08/07/2023) Active Problems Problem Noted Date Diagnosed Date [...] as of this encounter (statuses as of 08/07/2023) Resolved Problems Problem Noted Date Diagnosed Date [...] as of this encounter (statuses as of 08/07/2023) Immunizations Name Administration Dates Next Due COVID-19 mRNA, LNP-s, No Pre serve, 2-Dose Series (ZangZing) 02/18/2022 COVID-19, LNP-s, No Preserve , Chau-sucrose, Ages 12+ (Pfizer) 01/28/2022 DTaP Dipth/Tet/Acell Pertussis (Infanrix), Peds 12/06/2007 HPV Vaccine, 9-Valent 05/14/2018,11/10/2017 Hep A - Hepatitis A (ped/ado le, 1-18 Yrs) 05/14/2018,11/10/2017 IPV - Polio Virus Vaccine (Inact) 12/06/2007 MMR - Measles/Mumps/Rubella Vaccine 12/06/2007 Meningococcal Conjugate Vacc ine (Menactra/Menveo) 05/24/2015 Meningococcal MCV4O Conjugat e Vaccine (Menveo) 01/06/2019 Pneumococcal Conjugate Vacci ne, 20-valent ([id number]) 05/30/2022 Seasonal Influenza, PF, 6 M & [...] money to get more. Never true 07/23/2023 [place] Depression Scale Answer Date Recorded [place] Depression Scale Total 11 07/23/2023 The thought [...] Sign Reading Time Taken Comments Blood Pressure 132/70 08/06/2023 3:03 PM EDT Pulse - - Temperature - - Respiratory Rate - - Oxygen Saturation - - Inhaled Oxygen Concentration - - Weight 64.9 kg (143 lb) 08/06/2023 3:03 PM EDT Height 162.6 cm (5' 4") 08/06/2023 3:03 PM EDT Body Mass Index 24.55 08/06/2023 3:03 PM EDT documented in this encounter Progress Notes * Emelia Shah MD - 08/06/2023 3:29 PM EDT Samuel Amador is a 22 year old female here for her routine OB appointment at 30w0d. Patient offers no complaints. Her Estimated Date of Delivery: 10/15/23 REVIEW OF SYSTEMS: She affirms movement. Denies vaginal bleeding, LOF, contractions, N/V, headaches PHYSICAL EXAM: Filed Vitals: 08/06/23 1503 BP: 132/70 Weight: 64.9 kg (143 lb) Height: 1.626 m (5' 4") +FHT 122 bpm Fundal height 31 cm ASSESSMENT/PLAN: (R79.89) Elevated LFTs Plan: COMPREHENSIVE METABOLIC PANEL (O99.019) Antepartum anemia complicating Plan: Patient is taking vitamin B12 oral iron supplementation. (R10.11) RUQ pain Plan: LFTs were ordered today. We discussed signs and symptoms of preeclampsia. (O99.280, E03.9) Hypothyroid in , antepartum Plan: TSH Results: Lab Results Component Value Date/Time TSH - [facility] 2.34 07/23/2023 11:14 AM TSH - [facility] 3.91 03/03/2023 02:05 PM TSH - [facility] 4.23 (H) 04/29/2021 09:36 AM TSH - [facility] 2.17 10/23/2016 09:45 AM TSH - [facility] 2.43 05/24/2015 10:49 AM (O99.340, F32.A) Depression complicating , antepartum Plan: Patient states that her mood is stable on Wellbutrin. (O23.41) Urinary tract infection in mother during first trimester of Plan: Urine culture on 04/29/2023 yielded no growth. (Z3A.30) 30 weeks gestation of (primary encounter diagnosis) Plan: - labor precautions and kick counts reviewed - RTO in 2 weeks Emelia Shah MD documented in this encounter Nursing Notes * Ute Shi LPN - 08/06/2023 3:15 PM EDT 30w0d Denies concerns documented in this encounter Plan of Treatment Upcoming Encounters Date Type Department Care Team (Late st Contact Info) Description 08/11/2023 4:00 PM EDT Pharmacy Pharmacy, [address] [address] Clinic, Anemia [address] [place] [address] 08/20/2023 10:45 AM EDT Office Visit Gynecology/Obstetrics [facility] [address] [facility] [place] [address] Lisset Zavala, CN [facility] [place] [address] Scheduled Orders Name Type Priority Associated Diagnoses Orde r Schedule COMPREHENSIVE METABOLIC PANEL Lab Routine Elevated LFTs Ordered: 08/06/2023 Health Maintenance Due Date Last Done Comments [...] as of this encounter Visit Diagnoses Diagnosis Elevated LFTs- Primary Other abnormal blood chemistry 30 weeks gestation of state, incidental Antepartum anemia complicating Anemia, antepartum RUQ pain Abdominal pain, right upper quadrant Hypothyroid in , antepartum Thyroid dysfunction, antepartum Depression complicating , antepartum Mental disorders of mother, antepartum Urinary tract infection in mother during first trimester of documented in this encounter Care Teams Pad Machine Operator Relationship Specialty Start Date End Date Josephine Mtz MD [address] [place] [address] [place] [address] PCP - General Family Medicine 10/21/21 documented as of this encounter
--- OUTSIDE RECORDS SUMMARY | 2023-10-13 09:05 | External Medical Summary | Summary of Care ---
Author Name Unknown Organization [facility] Address [address] [place] [address] Phone [phone] Care Team Providers Care Police Chief Deputy Name Role Phone Jospehine Mtz MD Primary Care Prov ider Reason for Visit * Reason Comments Outpatient Testing Encounter Details Date Type Department Care Team (Late st Contact Info) Description 07/23/2023 10:20 AM EDT Laboratory Laboratory, [facility] [address] [place] [address] [facility] [address] [place] [address] Arrived Allergies No known active allergiesdocumented as of this encounter (statuses as of 07/23/2023) Medications Medication Sig Dispensed Refills Start Date [...] before bedtime. 60 Tablet 3 06/29/2023 Active documented as of this encounter (statuses as of 07/23/2023) Active Problems Problem Noted Date Diagnosed Date Antepartum anemia complicating 024 Overview: Hgb 10.6 at 24 weeks (checked due to elevated LFTs). Started BID iron. Elevated LFTs 06/24/2023 Overview: Hepatic Panel Results: [...] as of this encounter (statuses as of 07/23/2023) Resolved Problems Problem Noted Date Diagnosed Date [...] as of this encounter (statuses as of 07/23/2023) Immunizations Name Administration Dates Next Due COVID-19 [...] (Menveo) 01/06/2019 Pneumococcal Conjugate Vacci ne, 20-valent ([id number]) 05/30/2022 Seasonal Influenza, PF, 6 M & above, IM , (FluLaval or Fluzone) 05/30/2022,03/15/2018 Seasonal Influenza, Split, I IV3, With Preserve, Inj 04/18/2010,02/02/2009,04/17/2008,03/15 TDAP (age 10 and older)(Boostrix) 05/24/2015 Varicella Vaccine (Chicken Pox) 12/06/2007 documented as of this encounter Social History Tobacco Use Types Packs/Day Years Used Date Smoking Tobacco: Former Cigarettes Smokeless Tobacco: Never Alcohol Use Standard Drinks/Week Comments No 0 (1 standard drink = 0.6 oz pur e alcohol) PHQ-2 Answer Date Recorded PHQ Teen Total Score 13 08/31/2020 Hunger Vital Sign Answer Date Recorded Within the past 12 months, y ou worried that your food would run out before you got the money to buy more. Never true 07/23/19 24 Within the past 12 months, t he food you bought just didn't last and you didn't have money to get more. Never true 07/23/2023 [place] Depression Scale Answer Date Recorded [place] Depression Scale Total 8 03/03/2023 The thought of harming myself has occurred to me . Never 03/03/2023 Estimated Date of Delivery Comme nts Yes [...] Care Team (Late st Contact Info) Description 07/23/2023 10:45 AM EDT Office Visit Gynecology/Obstetrics [facility] [address] [place] [address] Yessy Corona CRNP [address] [place] [address] Arrived Health Maintenance Due Date Last Done Comments Depression, Most Recent Scor e >= 10 (will fire each visit until score < 10) 09/01/2020 08/31/2020 Yearly Wellness Visit 10/11/2022 10/11/2021 , 08/31/2020, 01/06/2019, Additional history exists COVID-19 Vaccine (3 2022-2 4 season) 2023 02/18/2022, 01/28/2022 Influenza Vaccine (FLU shot) (#1) 2023 05/30/2022, 03/15/2018, 04/18/2010, Additional history exists Gonorrhea / Chlamydia Screen 03/03/2024, 01/09/2022, 08/31/2020, Additional history exists DTaP,Tdap,and Td Vaccines (7 - Td or Tdap) 05/24/2025 05/24/2015, 12/06/2007, 03/07/2004, Additional history exists Hepatitis B Completed 03/07/2004, 03/12, 02/03/2003, Additional history exists GARDASIL-HPV IMMUNIZATION SERIES Completed 05/14/19, 11/10/2017 MENINGOCOCCAL (MENACTRA/MENVEO) Completed , 05/24/2015 Pneumococcal Vaccine: Pediat rics (0 to 5 Years) and At-Risk Patients (6 to 64 Years) Completed 05/30/2022 documented as of this encounter Medical Devices Not on filedocumented as of this encounter Care Teams Police Chief Deputy Relationship Specialty Start Date End Date Josephine Mtz MD [address] [place] [address] [place] [address] PCP - General Family Medicine 10/21/21 documented as of this encounter
--- OUTSIDE RECORDS SUMMARY | 2023-10-13 09:05 | External Medical Summary | Summary of Care ---
Author Name Unknown Organization [facility] Address [address] [place] [address] Phone [phone] Care Team Providers Care Equine Internship Name Role Phone Josephine Mtz MD Primary Care Prov ider Reason for Referral * Evaluate & Treat - Unlimited Visits (Within 10 days (routine)) Specialty Diagnoses / Procedures Referred By Spencer estrada Referred To Contact Janny Brown CRNP [address] [place] [address] Referral ID Status Reason Start Date Expiration Date V isits Requested Visits Authorized Specialty Services Required Question Answer Referral Priority Within 10 days (routine) Where should this appointment be scheduled? [facility] Reason for Visit * Reason Onset Date Comments Test Results 07/24/2023 Encounter Details Date Type Department Care Team (Late st Contact Info) Description 07/24/2023 Telephone Gynecology/Obstetrics [facility] [address] [place] [address] Janny Brown CRNP [address] [place] [address] Test Results Allergies No known active allergiesdocumented [...] mRNA, LNP-s, No Pre serve, 2-Dose Series (TasteBook) 02/18/2022 COVID-19, LNP-s, No Preserve , Chau-sucrose, Ages 12+ (Pfizer) 01/28/2022 DTaP Dipth/Tet/Acell Pertussis (Infanrix), Peds 12/06/2007 HPV Vaccine, 9-Valent 05/14/2018,11/10/2017 Hep A - Hepatitis A (ped/ado le, 1-18 Yrs) 05/14/2018,11/10/2017 IPV - Polio Virus Vaccine (Inact) 12/06/2007 MMR - Measles/Mumps/Rubella Vaccine 12/06/2007 Meningococcal Conjugate Vacc ine (Menactra/Menveo) 05/24/2015 Meningococcal MCV4O Conjugat e Vaccine (Menveo) 01/06/2019 Pneumococcal Conjugate Vacci ne, 20-valent ([id number]) 05/30/2022 Seasonal Influenza, PF, 6 M & [...] money to get more. Never true 07/23/2023 [place] Depression Scale Answer Date Recorded [place] Depression Scale Total 11 07/23/2023 The thought [...] ZIYAD Pardo * Telephone Encounter - Janny Brown CRNP - 07/24/2023 8:09 AM EDT Normal 1 hr glucose. Her CBC shows anemia; because her hgb is <11, recommend iron infusions per [facility] protocol. Already taking oral iron. Will place referral and their team will contact her to schedule. ZIYAD Pardo documented in this encounter Plan of Treatment Upcoming Encounters Date Type Department Care Team (Late st Contact Info) Description 08/06/2023 3:15 PM EDT Office Visit Gynecology/Obstetrics [facility] 132 [facility] [place] [address] Emelia Shah MD [address] [place] [address] [place] [address] Scheduled Referrals Name Type [...] antepartum documented in this encounter Care Teams Equine Internship Relationship Specialty Start Date End Date Josephine Mtz MD [address] [place] [address] [place] [id number] PCP - General Family Medicine 10/21/21 documented as of this encounter
--- OUTSIDE RECORDS SUMMARY | 2023-10-13 09:05 | External Medical Summary | Summary of Care ---
Author Name Unknown Organization [facility] Address [address] [place] [address] Phone [phone] Care Team Providers Care Wall And Floor Tiler Name Role Phone Josephine Mtz MD Primary Care Prov ider Reason for Visit * Reason Comments Outpatient Testing Encounter Details Date Type Department Care Team (Late st Contact Info) Description 07/23/2023 10:20 AM EDT Laboratory Laboratory, [facility] [address] [place] [address] [facility] [address] [place] [address] Arrived Allergies No known active allergiesdocumented as [...] (Menveo) 01/06/2019 Pneumococcal Conjugate Vacci ne, 20-valent ([id number]) 05/30/2022 Seasonal Influenza, PF, 6 M & [...] money to get more. Never true 07/23/2023 [place] Depression Scale Answer Date Recorded [place] Depression Scale Total 11 07/23/2023 The thought [...] as of this encounter Plan of Treatment Health Maintenance [...] filedocumented as of this encounter Care Teams Wall And Floor Tiler Relationship Specialty Start Date End Date Josephine Mtz MD [address] [place] [address] [place] [address] PCP - General Family Medicine 10/21/21 documented as of this encounter
--- OUTSIDE RECORDS SUMMARY | 2023-10-13 09:05 | External Medical Summary ---
Author Name Unknown Address Unknown Organization K01:[facility]ATORY [facility] - [address] [place] [address] Laboratory Report Ordering Provider Test Date Status CHIOMA CERON 07/23/2023 11:14:45 Final Observation Date Value Abnormality Reference (Units ) Status MYCODE SPECIMEN-SST 07/23/2023 11:14:45 Freezing of extracted DNA, whole blood and/or serum. Final Performing Location [facility] - [address] [place] [address]
--- OUTSIDE RECORDS SUMMARY | 2023-10-13 09:05 | External Medical Summary | Summary of Care ---
Author Name Unknown Organization [facility] Address [address] [place] [address] Phone [phone] Care Team Providers Care Real Estate Acquisition Analyst Name Role Phone Josephine Mtz MD Primary Care Prov ider Reason for Visit * Reason Comments Outpatient Testing Encounter Details Date Type Department Care Team (Late st Contact Info) Description 07/23/2023 10:20 AM EDT Laboratory Laboratory, [facility] [address] [place] [address] [facility] [address] [place] [address] Supervision of other normal , antepartum; [employer] Other*[id number] Allergies No known active allergiesdocumented as of [...] mRNA, LNP-s, No Pre serve, 2-Dose Series ([employer]) 02/18/2022 COVID-19, LNP-s, No Preserve , [...] (Menveo) 01/06/2019 Pneumococcal Conjugate Vacci ne, 20-valent ([id number]) 05/30/2022 Pneumococcal Conjugate Vacci ne, 7 Valent [...] money to get more. Never true 07/23/2023 [place] Depression Scale Answer Date Recorded [place] Depression Scale Total 11 07/23/2023 The thought [...] 08/06/2023 3:15 PM EDT Office Visit Gynecology/Obstetrics [facility] 132 [facility] [place] [address] Emelia Shah MD [address] [place] [address] [place] [address] Pending Results Name Type Priority Associated Diagnoses Date /Time CBC WITH WBC DIFFERENTIAL AND ANEMIA REFLEX WORKUP Lab Routine Supervision of other normal , antepartum 07/23/2023 11:14 AM EDT SYPHILIS ANTIBODY SCREEN WITH REFLEX TO RPR Lab Routine Supervision of other normal , antepartum 07/23/2023 11:14 AM EDT 50-G GESTATIONAL GLUCOSE, 1 HOUR Lab Routine Supervision of other normal , antepartum 07/23/2023 11:14 AM EDT MYCODE SUBSEQUENT ADULT Lab Routine [employer] Other*[id number] 07/23/2023 11:14 AM EDT ANEMIA CBC Lab Routine Supervision of other normal , antepartum 07/23/2023 11:14 AM EDT DIFFERENTIAL, AUTOMATED Lab Routine Supervision of other normal , antepartum 07/23/2023 11:14 AM EDT ANEMIA REFLEX CHEMISTRY HOLD Lab Routine Supervision of other normal , antepartum 07/23/2023 11:14 AM EDT SYPHILIS ANTIBODY SCREEN Lab Routine Supervision of other normal , antepartum 07/23/2023 11:14 AM EDT MYCODE SST1 Lab Routine [employer] Other*[id number] 07/23/2023 11:14 AM EDT MYCODE SST2 Lab Routine [employer] Other*[id number] 07/23/2023 11:14 AM EDT Health Maintenance Due Date Last [...] Diagnosis Supervision of other normal , antepartum [employer] Other*[id number] documented in this encounter Care Teams Real Estate Acquisition Analyst Relationship Specialty Start Date End Date Josephine Mtz MD [address] [place] [address] [place] [address] PCP - General Family Medicine 10/21/21 documented as of this encounter
--- OUTSIDE RECORDS SUMMARY | 2023-10-13 09:05 | External Medical Summary ---
Author Name Unknown Address Unknown Organization K01:[facility] [place] [address] [place] [address] Laboratory Report Ordering Provider Test Date Status JUDITH VALDOVINOS 07/23/2023 11:14:45 Final Observation Date Value Abnormality Reference (Units ) Status Folic Acid 07/23/2023 11:14:45 >20.0 >4.5 (ng/ mL) Final Performing Location [facility] - [address] [place] [address]
--- OUTSIDE RECORDS SUMMARY | 2023-10-13 09:05 | External Medical Summary | Summary of Care ---
Author Name Unknown Organization [facility] Address [address] [place] [address] Phone [phone] Care Team Providers Care Internet Database Specialist Name Role Phone Josephine Mtz MD Primary Care Prov ider Reason for Visit * Reason Comments Return Visit Encounter Details Date Type Department Care Team ([facility] st Contact Info) Description 07/23/2023 10:45 AM EDT Office Visit Gynecology/Obstetric s Dayami Whitley [address] [place] [address] Yessy Corona CRNP [address] [place] [address] Encounter for supervision of other normal in third trimester*; Antepartum anemia complicating ; Depression complicating , antepartum; Need for prophylactic vaccination with combined gyotyenrdm-vdmqavt-em rtussis (DTP) vaccine Allergies No known active allergiesdocumented as of [...] (Menveo) 01/06/2019 Pneumococcal Conjugate Vacci ne, 20-valent ([id number]) 05/30/2022 Seasonal Influenza, PF, 6 M & above, IM , (FluLaval or Fluzone) 05/30/2022,03/15/2018 Seasonal Influenza, Split, I IV3, With Preserve, Inj 04/18/2010,02/02/2009,04/17/2008,03/15 TDAP (age 10 and older)(Boostrix) 07/23/2023, Varicella Vaccine (Chicken Pox) 12/06/2007 documented as of this encounter Social History Tobacco Use Types Packs/Day Years Used Date Smoking Tobacco: Former Cigarettes Smokeless Tobacco: Never Tobacco Cessation:Counseling Given: Not Answered Alcohol Use Standard Drinks/Week Comments No 0 [...] money to get more. Never true 07/23/2023 [place] Depression Scale Answer Date Recorded [place] Depression Scale Total 11 07/23/2023 The thought [...] Sign Reading Time Taken Comments Blood Pressure 128/60 07/23/2023 10:32 AM EDT Pulse - - Temperature - - Respiratory Rate - - Oxygen Saturation - - Inhaled Oxygen Concentration - - Weight 64.4 kg (142 lb) 07/23/2023 10:32 AM EDT Height - - Body Mass Index - - documented in this encounter Progress Notes * Yessy Corona CRNP - 07/23/2023 10:58 AM EDT 28w Has discolored patches of skin on her abdomen. ?tinea versicolor. Suggested antifungal or PCP for evaluation. Depression score of 11. Already taking Wellbutrin. She is agreeable to discussing with her PCP, as she would follow with them for mood concerns outside of anyway. Stable today. Baby is active. No contractions or bleeding. Glucola, TDAP today. ZIYAD Sierra documented in this encounter Nursing Notes * Zuleyka Yuen, MED ASSIST - 07/23/2023 10:33 AM EDT Mild cramping this morning, no bleeding/no discharge Some nausea/no vomiting Mild headaches occasionally No abdominal pains Has light colored dots on her abdomin documented in this encounter Plan of Treatment Upcoming Encounters Date Type Department Care Team (Late st Contact Info) Description 08/06/2023 3:15 PM EDT Office [facility] 132 [facility] [place] [address] Emelia Shah MD [address] [place] [address] [place] [address] Health Maintenance Due Date Last Done [...] as of this encounter Visit Diagnoses Diagnosis Encounter for supervision of other normal in third trimester- Primary Antepartum anemia complicating Anemia, antepartum Depression complicating , antepartum Mental disorders of mother, antepartum Need for prophylactic vaccination with combined prdjyeixxr-nopjpet-ymnaipbes (DTP) vaccine documented in this encounter Care Teams Internet Database Specialist Relationship Specialty Start Date End Date Josephine Mtz MD [address] [place] [address] [place] [address] PCP - General Family Medicine 10/21/21 documented as of this encounter
--- OUTSIDE RECORDS SUMMARY | 2023-10-13 09:06 | External Medical Summary ---
Author Name Unknown Address Unknown Organization K0G:[facility]ATORY [place] [facility] - [address] [place] [address] Laboratory Report Ordering Provider Test Date Status JUDITH VALDOVINOS 06/24/2023 11:30:46 Final Observation Date Value Abnormality Reference (Units ) Status Albumin 06/24/2023 11:30:46 3.8 3.8-5.0 (g/dL) Final AST (Aspartate aminotransferase) 06/24/2023 11:30:46 37 Above high normal 10-35 (U/L) Final Alk Phos 06/24/2023 11:30:46 63 35-130 (U/L) Final ALT (Alanine aminotransferase) 06/24/2023 11:30:46 66 Above high normal 10-35 (U/L) Final Bilirubin, Total 06/24/2023 11:30:46 0.3 <=1.2 (mg/dL) Final Bilirubin, Direct 06/24/2023 11:30:46 <0.2 0.0-0.3 (mg/dL) Final Protein 06/24/2023 11:30:46 6.4 6.0-8.3 (g/dL) Final Performing Location LAB[facility]ATORY [place] [facility] 0 - [address] [place] [address]
--- OUTSIDE RECORDS SUMMARY | 2023-10-13 09:06 | External Medical Summary ---
Author Name Unknown Address Unknown Organization K01:[facility] [place] [address] [place] [address] Laboratory Report Ordering Provider Test Date Status JUDITH VALDOVINOS 07/23/2023 11:14:45 Final Observation Date Value Abnormality Reference (Units ) Status Iron 07/23/2023 11:14:45 55 33-151 (ug/dL) Final Iron-binding capacity 07/23/2023 11:14:45 466 Above high normal 250-425 (ug/dL) Final Transferrin Sat % 07/23/2023 11:14:45 12 Below low normal 15-55 (%) Final Performing Location [facility] [place] [address] [place] [address]
--- OUTSIDE RECORDS SUMMARY | 2023-10-13 09:06 | External Medical Summary ---
Author Name Unknown Address Unknown Organization K01:[facility] [place] [address] [place] [address] Laboratory Report Ordering Provider Test Date Status OPAL VALDOVINOSTANISHA 07/23/2023 11:14:45 Final Observation Date Value Abnormality Reference (Units ) Status Ferritin 07/23/2023 11:14:45 18 13-150 (ng /mL) Final Performing Location [facility] - [address] [place] [address]
--- OUTSIDE RECORDS SUMMARY | 2023-10-13 09:06 | External Medical Summary | Summary of Care ---
Author Name Unknown Organization [facility] Address [address] [place] [address] Phone [phone] Care Team Providers Care Pumping Plant Operator Name Role Phone Josephine Mtz MD Primary Care Prov ider Reason for Visit * Reason Comments Outpatient Testing Encounter Details Date Type Department Care Team (Late st Contact Info) Description 06/24/2023 12:00 PM EST Laboratory Laboratory, [facility] [address] [place] [address] [facility] [address] [place] [address] RUQ pain Allergies No known active allergiesdocumented as of this encounter (statuses as of 06/24/2023) Medications Medication Sig Dispensed Refills Start Date [...] once daily 30 g 0 03/03/2023 Active documented as of this encounter (statuses as of 06/24/2023) Active Problems Problem Noted Date Diagnosed Date Urinary tract infection in m other during [...] as of this encounter (statuses as of 06/24/2023) Resolved Problems Problem Noted Date Diagnosed Date [...] as of this encounter (statuses as of 06/24/2023) Immunizations Name Administration Dates Next Due COVID-19 mRNA, LNP-s, No Pre serve, 2-Dose Series ([employer]) 02/18/2022 COVID-19, LNP-s, No Preserve , Chau-sucrose, Ages 12+ (PLDT) 01/28/2022 DTaP Dipth/Tet/Acell Pertussis (Infanrix), Peds 12/06/2007 HPV Vaccine, 9-Valent 05/14/2018,11/10/2017 Hep A - Hepatitis A (ped/ado le, 1-18 Yrs) 05/14/2018,11/10/2017 IPV - Polio Virus Vaccine (Inact) 12/06/2007 MMR - Measles/Mumps/Rubella Vaccine 12/06/2007 Meningococcal Conjugate Vacc ine (Menactra/Menveo) 05/24/2015 Meningococcal MCV4O Conjugat e Vaccine (Menveo) 01/06/2019 Pneumococcal Conjugate Vacci ne, 20-valent ([id number]) 05/30/2022 Seasonal Influenza, PF, 6 M & [...] the money to buy more. Never true 10/14/19 Within the past 12 months, t he food you bought just didn't last and you didn't have money to get more. Never true 10/13/2022 [place] Depression Scale Answer Date Recorded Mur[place]ugh Depression Scale Total 8 03/03/2023 The thought [...] Description 07/23/2023 10:20 AM EDT Laboratory Laboratory, [facility] [address] [place] [phone] WhitleyCira collazo [facility] [address] [facility] [place] [address] 07/23/2023 10:45 AM EDT Office Visit Gynecology/Obstetrics Dayami Whitley [address] [place] [address] Yessy Corona CRNP [address] [place] [address] Pending Results Name Type Priority Associated Diagnoses Date /Time HEPATIC FUNCTION PANEL Lab Routine RUQ pain 06/24/2023 11:30 AM EST Health Maintenance Due Date Last Done Comments [...] as of this encounter Visit Diagnoses Diagnosis RUQ pain Abdominal pain, right upper quadrant documented in this encounter Care Teams Pumping Plant Operator Relationship Specialty Start Date End Date Josephine Mtz MD [address] [place] [address] [place] [phone] PCP - General Family Medicine 10/21/21 documented as of this encounter
--- OUTSIDE RECORDS SUMMARY | 2023-10-13 09:06 | External Medical Summary ---
Author Name Unknown Address Unknown Organization K01:LABORATORY [facility] - [address] [place] [address] Laboratory Report Ordering Provider Test Date Status CHIOMA CERON 06/25/2023 09:30:26 Final Observation Date Value Abnormality Reference (Units ) Status MYCODE SPECIMEN-SST 06/25/2023 09:30:26 Freezing of extracted DNA, whole blood and/or serum. Final Performing Location [facility] - [address] [place] [address]
--- OUTSIDE RECORDS SUMMARY | 2023-10-13 09:06 | External Medical Summary | Summary of Care ---
Author Name Unknown Organization [facility] Address [address] [place] [address] Phone [phone] Care Team Providers Care Manager Practice Name Role Phone Josephine Mtz MD Primary Care Prov ider Encounter Details Date Type Department Care Team (Late st Contact Info) Description 06/29/2023 Orders Only [facility] Department [address] [place] [address] Sheron Farris CHRA [employer] Other*[id number] Allergies No known active allergiesdocumented as of this encounter (statuses as of 06/29/2023) Medications Medication Sig Dispensed Refills Start Date [...] as of this encounter (statuses as of 06/29/2023) Active Problems Problem Noted Date Diagnosed Date Elevated LFTs 06/24/2023 Overview: Hepatic Panel Results: [...] as of this encounter (statuses as of 06/29/2023) Resolved Problems Problem Noted Date Diagnosed Date [...] as of this encounter (statuses as of 06/29/2023) Immunizations Name Administration Dates Next Due COVID-19 mRNA, LNP-s, No Pre serve, 2-Dose Series ([employer]) 02/18/2022 COVID-19, LNP-s, No Preserve , Chau-sucrose, Ages 12+ ([employer]) 01/28/2022 DTaP Dipth/Tet/Acell Pertussis (Infanrix), Peds 12/06/2007 HPV Vaccine, 9-Valent 05/14/2018,11/10/2017 Hep A - Hepatitis A (ped/ado le, 1-18 Yrs) 05/14/2018,11/10/2017 IPV - Polio Virus Vaccine (Inact) 12/06/2007 MMR - Measles/Mumps/Rubella Vaccine 12/06/2007 Meningococcal Conjugate Vacc ine (Menactra/Menveo) 05/24/2015 Meningococcal MCV4O Conjugat e Vaccine (Menveo) 01/06/2019 Pneumococcal Conjugate Vacci ne, 20-valent ([id number]) 05/30/2022 Seasonal Influenza, PF, 6 M & [...] money to buy more. Never true 10/14/19 23 Within the past 12 months, t he food you bought just didn't last and you didn't have money to get more. Never true 10/13/2022 [place]berry Depression Scale Answer Date Recorded [place]berry Depression Scale Total 8 03/03/2023 The thought [...] Description 07/23/2023 10:20 AM EDT [facility] [place] [phone] WhitleyCira collazo [facility] [address] [place] [address] 07/23/2023 10:45 AM EDT Office Visit Gynecology/Obstetrics [facility] [address] [place] [address] Yessy Corona CRNP [address] [facility] [place] [address] Scheduled Orders Name Type Priority Associated Diagnoses Orde r Schedule MYCODE SUBSEQUENT ADULT Lab Routine [employer] Other*[id number] Every 6 Months for 2 Occurrences starting 06/29/2023 until 07/18/2024 Health Maintenance Due Date Last Done Comments [...] as of this encounter Visit Diagnoses Diagnosis [employer] Other*[id number] documented in this encounter Care Teams Manager Practice Relationship Specialty Start Date End Date Josephine Mtz MD [address] [place] [address] [place] [address] PCP - General Family Medicine 10/21/21 documented as of this encounter
--- OUTSIDE RECORDS SUMMARY | 2023-10-13 09:06 | External Medical Summary ---
Author Name Unknown Address Unknown Organization K01:LABORATORY C - [address] [place] [id number] Laboratory Report Ordering Provider Test Date Status JUDITH VALDOVINOS 07/23/2023 11:14:45 Final Observation Date Value Abnormality Reference (Units ) Status TSH 07/23/2023 11:14:45 2.34 0.27-4.20 (uIU/mL) Final Performing Location [facility] - [address] [place] [id number]
--- OUTSIDE RECORDS SUMMARY | 2023-10-13 09:06 | External Medical Summary | Summary of Care ---
Author Name Unknown Organization [facility] Address [address] [place] [address] Phone [phone] Care Team Providers Care Emergency Medical Tech Name Role Phone Josephine Mtz MD Primary Care Prov ider Reason for Visit * Reason Comments Return Visit Encounter Details Date Type Department Care Team ([facility] st Contact Info) Description 06/24/2023 11:45 AM EST Office Visit Gynecology/Obstetric s Franciskevin Whitley [address] [place] [address] BackerJanny CRNP [address] [place] [address] Supervision of other normal , antepartum*; Depression complicating , antepartum; Urinary tract infection in mother during first trimester of ; RUQ pain Allergies No known active allergiesdocumented [...] (Menveo) 01/06/2019 Pneumococcal Conjugate Vacci ne, 20-valent ([id number]) 05/30/2022 Seasonal Influenza, PF, 6 M & [...] money to get more. Never true 10/13/2022 Lafayette Depression Scale Answer Date Recorded Lafayette Depression Scale Total 8 03/03/2023 The thought [...] Sign Reading Time Taken Comments Blood Pressure 114/68 06/24/2023 11:08 AM EST Pulse - - Temperature - - Respiratory Rate - - Oxygen Saturation - - Inhaled Oxygen Concentration - - Weight 60.1 kg (132 lb 9.6 oz) 06/24/2023 11:08 AM EST Height - - Body Mass Index - - documented in this encounter Progress Notes * Janny Brown CRNP - 06/24/2023 11:10 AM EST 23w6d U/S for anatomy follow up today. +feeling movement. No ctx or bleeding. RUQ pain x1 week; occasionally travels across upper abdomen to her left side. Hurts more when she lies on her right side. Can be sharp or dull, occurs daily. Some mild nausea. No vision changes or severe ALBRECHT. Abdomen non-tender on exam. Will check LFTs, but suspect MSK cause. Discussed yoga/stretching, heat/ice, Tylenol as needed. Reviewed labs to be completed at next visit in 4 weeks. ZIYAD Pardo * Concetta Mathur LPN - 06/24/2023 11:10 AM EST 23w6d Denies vaginal bleeding/rom + movement Noticing some rib pain- right side worse than left , radiates to back. Worse when laying down. Has noticed for past week. Noticing some lightheadedness when standing. documented in this encounter Plan of Treatment Upcoming Encounters Date Type Department Care Team (Late st Contact Info) Description 06/24/2023 12:00 PM EST Laboratory [facility] [address] [place] [phone] Cira Whitley [address] [place] [address] RUQ pain 07/23/2023 10:20 AM EDT [facility] [place] [phone] Cira Whitley [facility] [place] [address] 07/23/2023 10:45 AM EDT Office Visit Gynecology/Obstetrics Dayami Whitley [address] [place] [address] Yessy Corona CRNP [address] [place] [address] Pending Results Name Type Priority Associated Diagnoses Date /Time HEPATIC FUNCTION PANEL Lab Routine RUQ pain 06/24/2023 11:30 AM EST Scheduled Orders Name Type Priority Associated Diagnoses Orde r Schedule CBC WITH WBC DIFFERENTIAL AND ANEMIA REFLEX WORKUP Lab Routine Supervision of other normal , antepartum Expected: 07/08/2023 (Approximate), Expires: 06/24/2024 SYPHILIS ANTIBODY SCREEN WITH REFLEX TO RPR Lab Routine Supervision of other normal , antepartum Expected: 07/08/2023 (Approximate), Expires: 06/24/2024 50-G GESTATIONAL GLUCOSE, 1 HOUR Lab Routine Supervision of other normal , antepartum Expected: 07/08/2023 (Approximate), Expires: 06/24/2024 HEPATIC FUNCTION PANEL Lab Routine RUQ pain Expected: 06/24/2023, Expires: 06/24/2024 Health Maintenance Due Date Last Done Comments [...] infection in mother during first trimester of RUQ pain Abdominal pain, right upper quadrant RUQ pain Abdominal pain, right upper quadrant documented in this encounter Care Teams Emergency Medical Tech Relationship Specialty Start Date End Date Josephine Mtz MD [address] [place] [address] [place] [address] PCP - General Family Medicine 10/21/21 documented as of this encounter
--- OUTSIDE RECORDS SUMMARY | 2023-10-13 09:06 | External Medical Summary | Summary of Care ---
Author Name Unknown Organization [facility] Address [address] [place] [address] Phone [phone] Care Team Providers Care Textile Dyer Name Role Phone Josephine Mtz MD Primary Care Prov ider Reason for Visit * Reason Onset Date Comments Test Results 06/24/2023 Encounter Details Date Type Department Care Team ([facility] st Contact Info) Description 06/24/2023 Telephone [facility] [address] [facility] [place] [address] BackJanny hill CRNP [address] [facility] [place] [address] Test Results Allergies No known active allergiesdocumented as of this encounter (statuses as of 06/25/2023) Medications Medication Sig Dispensed Refills Start Date [...] as of this encounter (statuses as of 06/25/2023) Active Problems Problem Noted Date Diagnosed Date [...] as of this encounter (statuses as of 06/25/2023) Resolved Problems Problem Noted Date Diagnosed Date [...] as of this encounter (statuses as of 06/25/2023) Immunizations Name Administration Dates Next Due COVID-19 mRNA, LNP-s, No Pre serve, 2-Dose Series ([employer]) 02/18/2022 COVID-19, LNP-s, No Preserve , Chau-sucrose, Ages 12+ ([employer]) 01/28/2022 DTaP Dipth/Tet/Acell Pertussis (Infanrix), Peds 12/06/2007 HPV Vaccine, 9-Valent 05/14/2018,11/10/2017 Hep A - Hepatitis A (ped/ado le, 1-18 Yrs) 05/14/2018,11/10/2017 IPV - Polio Virus Vaccine (Inact) 12/06/2007 MMR - Measles/Mumps/Rubella Vaccine 12/06/2007 Meningococcal Conjugate Vacc ine (Menactra/Menveo) 05/24/2015 Meningococcal MCV4O Conjugat e Vaccine (Menveo) 01/06/2019 Pneumococcal Conjugate Vacci ne, 20-valent ([id number]) 05/30/2022 Seasonal Influenza, PF, 6 M & [...] money to get more. Never true 10/13/2022 Brick Depression Scale Answer Date Recorded Brick Depression Scale Total 8 03/03/2023 The thought [...] Telephone Encounter - Arti Ludwig LPN - 06/25/2023 9:24 AM EST Pt notified and agreeable to US and labs * Telephone Encounter - Arti Ludwig LPN - 06/25/2023 9:04 AM EST left message for patient to call office * Telephone Encounter - Janny Brown CRNP - 06/25/2023 8:12 AM EST Also ordering some additional labs to r/o other liver conditions, please have pt complete these when she does her u/s. ZIYAD Pardo * Telephone Encounter - Rafia Beck RN - 06/24/2023 1:24 PM EST left message for patient to call office * Telephone Encounter - Janny Brown CRNP - 06/24/2023 1:18 PM EST Some of her liver labs are elevated; recommend u/s of the abdomen to rule out abnormalities. ZIYAD Pardo documented in this encounter Plan of Treatment Upcoming Encounters Date Type Department Care Team (Late st Contact Info) Description 06/25/2023 10:00 AM EST Laboratory Laboratory [address] [place] [phone] [place] [address] [employer] Other*[id number]; Elevated LFTs; RUQ pain 07/23/2023 10:20 AM EDT Laboratory Laboratory, [facility] [address] [facility] [phone] [facility] [address] 07/23/2023 10:45 AM EDT Office Visit Gynecology/Obstetric s [facility] [place] [address] Yessy Corona CRNP [facility] [address] Pending Results Name Type Priority Associated Diagnoses Date /Time US ABDOMEN LIMITED Medical Imaging Routine Elevated LFTs RUQ pain 06/25/2023 9:29 AM EST BILE ACIDS, FRACTIONATED AND TOTAL Lab Routine Elevated LFTs RUQ pain 06/25/2023 9:30 AM EST CBC Lab Routine Elevated LFTs 06/25/2023 9:30 AM EST CREATININE Lab Routine Elevated LFTs 06/25/2023 9:30 AM EST PROTEIN/ CREATININE RATIO, URINE Lab Routine Elevated LFTs 06/25/2023 9:30 AM EST ACUTE HEPATITIS PANEL Lab Routine Elevated LFTs 06/25/2023 9:30 AM EST Scheduled Orders Name Type Priority Associated Diagnoses Orde r Schedule US ABDOMEN LIMITED Medical Imaging Routine Elevated LFTs RUQ pain Expected: 06/24/2023 (Approximate), Expires: 07/22/2024 BILE ACIDS, FRACTIONATED AND TOTAL Lab Routine Elevated LFTs RUQ pain Expected: 06/25/2023 (Approximate), Expires: 06/25/2024 CBC Lab Routine Elevated LFTs Expected: 06/25/2023 (Approximate), Expires: 06/25/2024 CREATININE Lab Routine Elevated LFTs Expected: 06/25/2023 (Approximate), Expires: 06/25/2024 PROTEIN/ CREATININE RATIO, URINE Lab Routine Elevated LFTs Expected: 06/25/2023 (Approximate), Expires: 06/25/2024 ACUTE HEPATITIS PANEL Lab Routine Elevated LFTs Expected: 06/25/2023 (Approximate), Expires: 06/25/2024 Health Maintenance Due Date Last Done Comments [...] Elevated LFTs- Primary Other abnormal blood chemistry RUQ pain Abdominal pain, right upper quadrant [employer] Other*[id number] Elevated LFTs Other abnormal blood chemistry RUQ pain Abdominal pain, right upper quadrant documented in this encounter Care Teams Textile Dyer Relationship Specialty Start Date End Date Josephine Mtz MD [address] [place] [address] [place] [address] PCP - General Family Medicine 10/21/21 documented as of this encounter
--- OUTSIDE RECORDS SUMMARY | 2023-10-13 09:06 | External Medical Summary ---
Author Name Unknown Address Unknown Organization K01:LABORATORY [facility] [place] - [address] [place] [place] [address] Laboratory Report Ordering Provider Test Date Status JUDITH VALDOVINOS 06/25/2023 09:30:26 Final Normal: <150 mg/ g creatinine
High: 150-500 mg/g creatinine
Very High: >500 mg/g creatinine
Nephrotic: >3000 mg/g creatinine Observation Date Value Abnormality Reference (Units ) Status Protein/Creatinine [Ratio] in Urine 06/25/2023 09:30:26 112 <150 (mg/g ) Final Protein, Urine 06/25/2023 09:30:26 12 (mg/dL) Final Creatinine, Urine 06/25/2023 09:30:26 107 (mg/dL) Final Performing Location LABORATORY [facility] [place] - [address] [place] [address]
--- OUTSIDE RECORDS SUMMARY | 2023-10-13 09:06 | External Medical Summary ---
Author Name Unknown Address Unknown Organization K01:LABORATORY [facility] [place] - [facility] [place] [address] [place] [address] Laboratory Report Ordering Provider Test Date Status JUDITH VALDOVINOS 06/25/2023 09:30:26 Final Observation Date Value Abnormality Reference (Units ) Status Creatinine 06/25/2023 09:30:26 0.5 0.5-1.0 (mg/dL) Final Glomerular filtration rate/1.73 sq M.predicted [Volume Rate/Area] in Serum, Plasma or Blood by Creatinine-based formula (CKD-EPI) 06/25/2023 09:30:26 >90 >=60 (mL/min) Final eGFR is calculated based on the CKD-EPI 2020 equation Performing Location LABORATORY [facility] [place] - [address] [place] [address]
--- OUTSIDE RECORDS SUMMARY | 2023-10-13 09:06 | External Medical Summary ---
Author Name Unknown Address Unknown Organization K01:LABORATORY [facility] [place] - [facility] [place] [address] Laboratory Report Ordering Provider Test Date Status JUDITH VALDOVINOS 07/23/2023 11:14:45 Final Observation Date Value Abnormality Reference (Units ) Status Retic, % (auto) 07/23/2023 11:14:45 2.85 Above high normal 0.80-1.90 (%) Final Reticulocytes, Absolute 07/23/2023 11:14:45 92.3 31.3-100.1 (K/uL) Final Reticulocyte fraction, immature 07/23/2023 11:14:45 25.5 Above high normal 2.5-20.6 (%) Final Reticulocyte HGB 07/23/2023 11:14:45 36.0 29.7-37.4 (pg) Final Performing Location LABORATORY [facility] [place] - [address] [place] [address]
--- OUTSIDE RECORDS SUMMARY | 2023-10-13 09:06 | External Medical Summary ---
Author Name Unknown Address Unknown Organization K01:LABORATORY C - [address] [place] [address] Laboratory Report Ordering Provider Test Date Status CHIOMA CERON 07/23/2023 11:14:45 Final Observation Date Value Abnormality Reference (Units ) Status MYCODE SPECIMEN-SST 07/23/2023 11:14:45 Freezing of extracted DNA, whole blood and/or serum. Final Performing Location [facility] - [address] [place] [address]
--- OUTSIDE RECORDS SUMMARY | 2023-10-13 09:06 | External Medical Summary ---
Author Name Unknown Address Unknown Organization K01:[facility]ORY [facility] - [address] [facility] [address] Laboratory Report Ordering Provider Test Date Status ARUNABACKER 07/23/2023 11:14:45 Final Observation Date Value Abnormality Reference (Units ) Status SYNC LEUKOCYTES IN BLOOD BY AUTOMATED COUNT 07/23/2023 11:14:45 12.40 Above high normal 4.00-10.80 (K/uL) Final Neutrophils/100 leukocytes in Blood by Manual count 07/23/2023 11:14:45 81.0 Above high normal 40.0-75.0 (%) Final Lymphocytes/100 leukocytes in Blood by Manual count 07/23/2023 11:14:45 9.0 Below low normal 18.0-42.0 (%) Final Monocytes/100 leukocytes in Blood by Manual count 07/23/2023 11:14:45 5.0 1.0-11.0 (%) Final Eosinophils/100 leukocytes in Blood by Manual count 07/23/2023 11:14:45 2.0 0.0-6.0 (%) Final Metamyelocytes/100 leukocytes in Blood by Manual count 07/23/2023 11:14:45 2.0 Above high normal <=0.0 (%) Final Promyelocytes/100 leukocytes in Blood by Manual count 07/23/2023 11:14:45 1.0 Above high normal <=0.0 (%) Final Neutrophils [#/volume] in Blood by Manual count 07/23/2023 11:14:45 10.04 Above high normal 1.80-8.00 (K/uL) Final Lymphocytes [#/volume] in Blood by Manual count 07/23/2023 11:14:45 1.12 Below low normal 1.20-5.40 (K/uL) Final Monocytes [#/volume] in Blood by Manual count 07/23/2023 11:14:45 0.62 0.00-1.10 (K/uL) Final Eosinophils [#/volume] in Blood by Manual count 07/23/2023 11:14:45 0.25 0.00-0.70 (K/uL) Final Metamyelocytes [#/volume] in Blood by Manual count 07/23/2023 11:14:45 0.25 Above high normal <=0.00 (K/uL) Final Promyelocytes [#/volume] in Blood by Manual count 07/23/2023 11:14:45 0.12 Above high normal <=0.00 (K/uL) Final Variant lymphocytes [Presence] in Blood by Light microscopy 07/23/2023 11:14:45 Present Abnormal None Seen Final Giant platelets [Presence] in Blood by Light microscopy 07/23/2023 11:14:45 Present Abnormal None Seen Final Performing Location [place] [facility] [place] [address] [facility] [address]
--- OUTSIDE RECORDS SUMMARY | 2023-10-13 09:06 | External Medical Summary ---
Author Name Unknown Address Unknown Organization K01:LABORATORY [facility] [place] - [facility] [address] [facility] [address] Laboratory Report Ordering Provider Test Date Status JUDITH VALDOVINOS 06/25/2023 09:30:26 Final Observation Date Value Abnormality Reference (Units ) Status WBC, Total 06/25/2023 09:30:26 12.62 Above high normal 4.00-10.80 (K/uL) Final RBC 06/25/2023 09:30:26 3.24 3.85-5.15 (M/uL) Final Hemoglobin 06/25/2023 09:30:26 10.6 Below low normal 12.0-15.3 (g/dL) Final HCT 06/25/2023 09:30:26 32.1 Below low normal 36.0-45.2 (%) Final MCV 06/25/2023 09:30:26 99.1 81.5-97.5 (fL) Final MCH 06/25/2023 09:30:26 32.7 27.0-34.0 (pg) Final MCHC 06/25/2023 09:30:26 33.0 32.0-36.0 (g/dL) Final RDW 06/25/2023 09:30:26 13.0 11.5-15.5 (%) Final Platelets 06/25/2023 09:30:26 282 140-400 (K/uL) Final MPV 06/25/2023 09:30:26 9.4 6.6-11.1 (fL) Final Nucleated erythrocytes/100 leukocytes [Ratio] in Blood by Automated count 06/25/2023 09:30:26 0 <=0 (/100 WBCs) Final Performing Location LABORATORY [facility] [place] - [address] [place] [address]
--- OUTSIDE RECORDS SUMMARY | 2023-10-13 09:06 | External Medical Summary | Summary of Care ---
Author Name Unknown Organization [facility] Address [address] [place] [address] Phone [phone] Care Team Providers Care Vp Organizational Development Name Role Phone Josephine Mtz MD Primary Care Prov ider Encounter Details Date Type Department Care Team (Late st Contact Info) Description 06/29/2023 Telephone [facility] [address] [place] [address] Back[place], ZIYAD Rivera [address] [facility], [place] [id number] Allergies No known active allergiesdocumented as of [...] (Menveo) 01/06/2019 Pneumococcal Conjugate Vacci ne, 20-valent ([id number]) 05/30/2022 Seasonal Influenza, PF, 6 M & [...] money to get more. Never true 10/13/2022 [place] Depression Scale Answer Date Recorded [place] Depression Scale Total 8 03/03/2023 The thought [...] Telephone Encounter - Joyce Mendes RN - 06/29/2023 8:38 AM EST Patient called and made aware. Patient verbalized understanding to all. * Telephone Encounter - Janny Brown CRNP - 06/29/2023 8:22 AM EST +anemia, otherwise labs are normal. Sending Rx for iron to take twice a day, at least an hr apart from vitamins and dairy products. Can use colace if constipation occurs. Abdominal u/s normal as well. Awaiting bile acid levels. If normal, will plan repeat LFTs in a few weeks. Call office if pain is worsening, or with any new symptoms. ZIYAD Pardo documented in this encounter Plan of Treatment Upcoming Encounters Date Type Department Care Team (Late st Contact Info) Description 07/23/2023 10:20 AM EDT [facility] [address] [place] [phone] Cira Whitley [address] [place] [place] [address] 07/23/2023 10:45 AM EDT Office Visit Gynecology/Obstetrics [place] [address] Yessy Corona CRNP [address] [place] [place] [address] Health Maintenance Due Date Last Done Comments [...] antepartum documented in this encounter Care Teams Vp Organizational Development Relationship Specialty Start Date End Date Josephine Mtz MD [address] [place] [address] [place] [address] PCP - General Family Medicine 10/21/21 documented as of this encounter
--- OUTSIDE RECORDS SUMMARY | 2023-10-13 09:06 | External Medical Summary | Summary of Care ---
Author Name Unknown Organization [facility] Address [address] [place] [address] Phone [phone] Care Team Providers Care Special Education Preschool Teacher Name Role Phone Josephine Mtz MD Primary Care Prov ider Reason for Visit * Reason Comments Outpatient Testing Encounter Details Date Type Department Care Team (Late st Contact Info) Description 06/25/2023 10:00 AM EST Laboratory Laboratory [address] [place] [phone] [place] [address] [employer] Other*[id number]; Elevated LFTs; RUQ pain Allergies No known active allergiesdocumented [...] mRNA, LNP-s, No Pre serve, 2-Dose Series ([employer]) 02/18/2022 COVID-19, LNP-s, No Preserve , Chau-sucrose, Ages 12+ (Pfizer) 01/28/2022 DTaP Dipth/Tet/Acell Pertussis (Infanrix), Peds 12/06/2007 HPV Vaccine, 9-Valent 05/14/2018,11/10/2017 Hep A - Hepatitis A (ped/ado le, 1-18 Yrs) 05/14/2018,11/10/2017 IPV - Polio Virus Vaccine (Inact) 12/06/2007 MMR - Measles/Mumps/Rubella Vaccine 12/06/2007 Meningococcal Conjugate Vacc ine (Menactra/Menveo) 05/24/2015 Meningococcal MCV4O Conjugat e Vaccine (Menveo) 01/06/2019 Pneumococcal Conjugate Vacci ne, 20-valent ([id number]) 05/30/2022 Seasonal Influenza, PF, 6 M & [...] money to get more. Never true 10/13/2022 [place] Depression Scale Answer Date Recorded [place] Depression Scale Total 8 03/03/2023 The thought [...] 07/23/2023 10:20 AM EDT Laboratory Laboratory, Dayami [facility] [place] [phone] WhitleyCira collazo [facility] 132 [facility] [place] [address] 07/23/2023 10:45 AM EDT Office Visit Gynecology/Obstetrics Dayami Whitley [address] [facility] [place] [address] Yessy Corona CRNP 132 [facility] [place] [address] Pending Results Name Type Priority Associated Diagnoses Date /Time MYCODE INITIAL ADULT Lab Routine [employer] Other*[id number] 06/25/2023 9:30 AM EST BILE ACIDS, FRACTIONATED AND TOTAL Lab Routine Elevated LFTs RUQ pain 06/25/2023 9:30 AM EST CBC Lab Routine Elevated LFTs 06/25/2023 9:30 AM EST CREATININE Lab Routine Elevated LFTs 06/25/2023 9:30 AM EST PROTEIN/ CREATININE RATIO, URINE Lab Routine Elevated LFTs 06/25/2023 9:30 AM EST ACUTE HEPATITIS PANEL Lab Routine Elevated LFTs 06/25/2023 9:30 AM EST MYCODE INITIAL ADULT-PINK Lab Routine [employer] Other*[id number] 06/25/2023 9:30 AM EST MYCODE SST1 Lab Routine [employer] Other*[id number] 06/25/2023 9:30 AM EST MYCODE SST2 Lab Routine [employer] Other*[id number] 06/25/2023 9:30 AM EST Health Maintenance Due Date Last [...] this encounter Visit Diagnoses Diagnosis [employer] Other*[id number] Elevated LFTs Other abnormal blood chemistry RUQ pain Abdominal pain, right upper quadrant documented in this encounter Care Teams Special Education Preschool Teacher Relationship Specialty Start Date End Date Josephine Mtz MD [address] [place] [address] [place] [address] PCP - General Family Medicine 10/21/21 documented as of this encounter
--- OUTSIDE RECORDS SUMMARY | 2023-10-13 09:06 | External Medical Summary ---
Author Name Unknown Address Unknown Organization K01:LABORATORY [facility] [place] [address] Laboratory Report Ordering Provider Test Date Status ARUNABACKER 07/23/2023 11:14:45 Final Observation Date Value Abnormality Reference (Units ) Status WBC, Total 07/23/2023 11:14:45 12.40 Above high normal 4 .00-10.80 (K/uL) Final RBC 07/23/2023 11:14:45 3.25 3.85-5.15 (M/uL) Final Hemoglobin 07/23/2023 11:14:45 10.7 Below low normal 12 .0-15.3 (g/dL) Final Anemia reflex testing trigge rs on a HGB < 12.0 for Females and HGB < 13.0 for Males in accordance with the WHO Anemia Guidelines
Anemia reflex testing triggers on a HGB < 12.0 for Females and HGB < 13.0 for Males in accordance with the WHO Anemia Guidelines HCT 07/23/2023 11:14:45 33.0 Below low normal 36. 0-45.2 (%) Final MCV 07/23/2023 11:14:45 101.5 81.5-97.5 (fL) Final MCH 07/23/2023 11:14:45 32.9 27.0-34.0 (pg) Final MCHC 07/23/2023 11:14:45 32.4 32.0-36.0 (g/dL) Final RDW 07/23/2023 11:14:45 13.0 11.5-15.5 (%) Final Platelets 07/23/2023 11:14:45 271 140-400 (K /uL) Final MPV 07/23/2023 11:14:45 9.3 6.6-11.1 ( fL) Final Nucleated erythrocytes/100 leukocytes [Ratio] in Blood by Automated count 07/23/2023 11:14:45 0 <=0 (/100 WBCs) Fi [facility] Performing Location LABORATORY [facility] - [address] [facility] [address]
--- OUTSIDE RECORDS SUMMARY | 2023-10-13 09:06 | External Medical Summary ---
Author Name Unknown Address Unknown Organization K01:LABORATORY [facility] - [address] [place] [address] Laboratory Report Ordering Provider Test Date Status JUDITH VALDOVINOS 06/25/2023 09:30:26 Final Observation Date Value Abnormality Reference (Units ) Status Hep A IgM 06/25/2023 09:30:26 Negative Negative Final Hep B Core IgM 06/25/2023 09:30:26 Negative Negat matthias Final Hep B surface Ag 06/25/2023 09:30:26 Negative Neg ative Final Hep C Ab 06/25/2023 09:30:26 Negative Negative Final Performing Location LAB[facility] - [address] [place] [address]
--- OUTSIDE RECORDS SUMMARY | 2023-10-13 09:06 | External Medical Summary ---
Author Name Unknown Address Unknown Organization K01:LAB[facility]ATORY [facility] - [address] [place] [address] Laboratory Report Ordering Provider Test Date Status CHIOMA CERON 06/25/2023 09:30:26 Final Observation Date Value Abnormality Reference (Units ) Status ActiveSecODE SPECIMEN-LAV 06/25/2023 09:30:26 Freezing of extracted DNA, whole blood and/or serum. Final Performing Location LAB[facility] - [address] [place] [address]
--- OUTSIDE RECORDS SUMMARY | 2023-10-13 09:06 | External Medical Summary ---
Author Name Unknown Address Unknown Organization K0G:LABORATORY [facility] [place] [address] - [address] [place] [address] Laboratory Report Ordering Provider Test Date Status JUDITH VALDOVINOS 07/23/2023 11:14:45 Final Observation Date Value Abnormality Reference (Units ) Status Glucose [Moles/volume] in Serum or Plasma --1 hour post 50 g glucose PO 07/23/2023 11:14:45 101 70-129 (mg/dL) Final Performing Location LABORATORY [facility] [place] [address] - [address] [place] [address]
--- OUTSIDE RECORDS SUMMARY | 2023-10-13 09:06 | External Medical Summary ---
Author Name Unknown Address Unknown Organization K01:[place] [place] [address] [place] [address] Laboratory Report Ordering Provider Test Date Status ARUNAJUDITH 07/23/2023 11:14:45 Final Observation Date Value Abnormality Reference (Units ) Status Treponema pallidum Ab [Presence] in Serum by Immunoassay 07/23/2023 11:14:45 Nonreactive Nonreactive Final No serologic evidence of syp hilis. No additional testing clinicially indicated at this time. Consider repeat testing in 2-4 weeks if acute or primary syphilis is suspected. Performing Location [place] [facility] [place] [address] [place] [address]
--- OUTSIDE RECORDS SUMMARY | 2023-10-13 09:06 | External Medical Summary ---
Author Name Unknown Address Unknown Organization K01:LAB[facility]ATORY [facility] - [address] [place] [address] Laboratory Report Ordering Provider Test Date Status JUDITH VALDOVINOS 07/23/2023 11:14:45 Final Observation Date Value Abnormality Reference (Units ) Status Vitamin B12 07/23/2023 11:14:45 [phone] (pg/mL) Final Performing Location LAB[facility] - [address] [place] [address]
--- OUTSIDE RECORDS SUMMARY | 2023-10-13 09:06 | External Medical Summary ---
Author Name Unknown Address Unknown Organization : Laboratory Report Ordering Provider Test Date Status JUDITH VALDOVINOS 06/25/2023 09:30:26 Final Observation Date Value Abnormality Reference (Units ) Status Bile acid [Moles/volume] in Serum --fasting 06/25/2023 09:30:26 SEE BELOW Final TESTS--------- ----RESULTS--------UNITS--REF. RANGE---
Cholic Acid <0.5 umol/L < OR = 1.8
Deoxycholic Acid 0.7 umol/L < OR = 2.4
Chenodeoxycholic Acid <0.5 umol/L < OR = 3.1
Total Bile Acids <1.5 umol/L < OR = 6.8
This test was developed and its analytical
performance characteristics have been determined
by [facility]. It has not been cleared or
approved by FDA. This assay has been validated
pursuant to the CLIA regulations and is used for
clinical purposes.
Test performed by [facility]
[address],
[place] [address]

Doctorate Of Chiropractic: Judith Tapia MD,PHD,NAYELY Performing Location
--- OUTSIDE RECORDS SUMMARY | 2023-10-13 09:06 | External Medical Summary ---
Author Name Unknown Address Unknown Organization K01:LABORATORY [facility] - [address] [place] [address] Laboratory Report Ordering Provider Test Date Status CHIOMA CERON 06/25/2023 09:30:26 Final Observation Date Value Abnormality Reference (Units ) Status MYCODE SPECIMEN-SST 06/25/2023 09:30:26 Freezing of extracted DNA, whole blood and/or serum. Final Performing Location LAB[facility]AT[facility] - [address] [place] [address]
--- OUTSIDE RECORDS SUMMARY | 2023-10-13 09:07 | External Medical Summary | Summary of Care ---
Author Name Unknown Organization [facility] Address [address] [place] [address] Phone [phone] Care Team Providers Care [employer] Import Representative Name Role Phone Josephine Mtz MD Primary Care Prov ider Encounter Details Date Type Department Care Team (Late st Contact Info) Description 06/11/2023 Telephone [facility] [address] [place] [address] Larisa Lamb PA-C [address] [facility], [place] [phone] Allergies No known active allergiesdocumented as of this encounter (statuses as of 06/11/2023) Medications Medication Sig Dispensed Refills Start Date [...] as of this encounter (statuses as of 06/11/2023) Active Problems Problem Noted Date Diagnosed Date [...] as of this encounter (statuses as of 06/11/2023) Resolved Problems Problem Noted Date Diagnosed Date [...] as of this encounter (statuses as of 06/11/2023) Immunizations Name Administration Dates Next Due COVID-19 mRNA, LNP-s, No Pre serve, 2-Dose Series ([employer]) 02/18/2022 COVID-19, LNP-s, No Preserve , Chau-sucrose, Ages 12+ (CloudSafe) 01/28/2022 DTaP Dipth/Tet/Acell Pertussis (Infanrix), Peds 12/06/2007 HPV Vaccine, 9-Valent 05/14/2018,11/10/2017 Hep A - Hepatitis A (ped/ado le, 1-18 Yrs) 05/14/2018,11/10/2017 IPV - Polio Virus Vaccine (Inact) 12/06/2007 MMR - Measles/Mumps/Rubella Vaccine 12/06/2007 Meningococcal Conjugate Vacc ine (Menactra/Menveo) 05/24/2015 Meningococcal MCV4O Conjugat e Vaccine (Menveo) 01/06/2019 Pneumococcal Conjugate Vacci ne, 20-valent ([id number]) 05/30/2022 Seasonal Influenza, PF, 6 M & [...] money to get more. Never true 10/13/2022 [place] Depression Scale Answer Date Recorded [place] Depression Scale Total 8 03/03/2023 The thought [...] Telephone Encounter - Arti Ludwig LPN - 06/11/2023 3:20 PM EST Patient notified * Telephone Encounter - Larisa Lamb PA-C - 06/11/2023 3:01 PM EST Ultrasound for missed anatomy were able to get portions of heart missed first time and no concerns noted. They still were not able to see portions of spine. They again recommended another follow up ultrasound. I placed order for patient to complete in 2 weeks. Can you let her know? Can schedule with appointment 06/24/2023. documented in this encounter Plan of Treatment Upcoming Encounters Date Type Department Care Team (Late st Contact Info) Description 06/24/2023 10:45 AM EST Imaging Radiology [facility] 2[facility] [address] [place] [address] 06/24/2023 11:45 AM EST Office Visit Gynecology/Obstetrics [facility] [address] [facility] [place] [address] Back[place], ZIYAD Rivera [address] [place] [address] Scheduled Orders Name Type Priority Associated Diagnoses Orde r Schedule US PREG LIMITED 1 OR MORE FETUSES Medical Imaging Routine Encounter for follow-up ultrasound of anatomy Expected: 06/18/2023, Expires: 07/09/2024 Health Maintenance Due Date Last Done Comments [...] this encounter Visit Diagnoses Diagnosis Encounter for follow-up ultrasound of anatomy- Primary documented in this encounter Care Teams Ocean Import Representative Relationship Specialty Start Date End Date Josephine Mtz MD [address] [place] [address] [place] [address] PCP - General Family Medicine 10/21/21 documented as of this encounter
--- OUTSIDE RECORDS SUMMARY | 2023-10-13 09:07 | External Medical Summary | Summary of Care ---
Author Name Unknown Organization [facility] Address [address] [place] [address] Phone [phone] Care Team Providers Care High School Sports Coach Name Role Phone Josephine Mtz MD Primary Care Prov ider Reason for Visit * Reason Comments Outpatient Testing Encounter Details Date Type Department Care Team (Late st Contact Info) Description 04/29/2023 4:40 PM EST Laboratory Laboratory, [facility] [address] [place] [address] [facility] [address] [place] [address] Arrived Allergies No known active allergiesdocumented as of this encounter (statuses as of 04/29/2023) Medications Medication Sig Dispensed Refills Start Date [...] as of this encounter (statuses as of 04/29/2023) Active Problems Problem Noted Date Diagnosed Date [...] as of this encounter (statuses as of 04/29/2023) Resolved Problems Problem Noted Date Diagnosed Date [...] as of this encounter (statuses as of 04/29/2023) Immunizations Name Administration Dates Next Due COVID-19 mRNA, LNP-s, No Pre serve, 2-Dose Series ([employer]) 02/18/2022 COVID-19, LNP-s, No Preserve , Chau-sucrose, Ages 12+ ([employer]) 01/28/2022 DTaP Dipth/Tet/Acell Pertussis (Infanrix), Peds 12/06/2007 HPV Vaccine, 9-Valent 05/14/2018,11/10/2017 Hep A - Hepatitis A (ped/ado le, 1-18 Yrs) 05/14/2018,11/10/2017 IPV - Polio Virus Vaccine (Inact) 12/06/2007 MMR - Measles/Mumps/Rubella Vaccine 12/06/2007 Meningococcal Conjugate Vacc ine (Menactra/Menveo) 05/24/2015 Meningococcal MCV4O Conjugat e Vaccine (Menveo) 01/06/2019 Pneumococcal Conjugate Vacci ne, 20-valent ([id number]) 05/30/2022 Seasonal Influenza, PF, 6 M & [...] money to get more. Never true 10/13/2022 [place] Depression Scale Answer Date Recorded [place] Depression Scale Total 8 03/03/2023 The thought [...] filedocumented as of this encounter Care Teams High School Sports Coach Relationship Specialty Start Date End Date Josephine Mtz MD [address] [place] [address] [place] [phone] PCP - General Family Medicine 10/21/21 documented as of this encounter
--- OUTSIDE RECORDS SUMMARY | 2023-10-13 09:07 | External Medical Summary | Summary of Care ---
Author Name Unknown Organization [facility] Address [address] [place] [address] Phone [phone] Care Team Providers Care Operator Name Role Phone Josephine Mtz MD Primary Care Prov ider Reason for Visit * Reason Comments Return Visit Encounter Details Date Type Department Care Team ([facility] st Contact Info) Description 04/29/2023 4:15 PM EST Office Visit Gynecology/Obstetri abe Whitley [address] [place] [address] Larisa Lamb PA-C [address] [place] [address] Nurse Gutier[facility] [employer] Leidy [address] [place] [address] Supervision of other normal , antepartum*; Depression [...] mRNA, LNP-s, No Pre serve, 2-Dose Series ([employer]) 02/18/2022 COVID-19, LNP-s, No Preserve , Chau-sucrose, Ages 12+ (Pfizer) 01/28/2022 DTaP Dipth/Tet/Acell Pertussis (Infanrix), Peds 12/06/2007 HPV Vaccine, 9-Valent 05/14/2018,11/10/2017 Hep A - Hepatitis A (ped/ado le, 1-18 Yrs) 05/14/2018,11/10/2017 IPV - Polio Virus Vaccine (Inact) 12/06/2007 MMR - Measles/Mumps/Rubella Vaccine 12/06/2007 Meningococcal Conjugate Vacc ine (Menactra/Menveo) 05/24/2015 Meningococcal MCV4O Conjugat e Vaccine (Menveo) 01/06/2019 Pneumococcal Conjugate Vacci ne, 20-valent ([id number]) 05/30/2022 Seasonal Influenza, PF, 6 M & [...] money to get more. Never true 10/13/2022 [place] Depression Scale Answer Date Recorded [place] Depression Scale Total 8 03/03/2023 The thought [...] Sign Reading Time Taken Comments Blood Pressure 104/66 04/29/2023 4:17 PM EST Pulse - - Temperature - - Respiratory Rate - - Oxygen Saturation - - Inhaled Oxygen Concentration - - Weight 52.7 kg (116 lb 3.2 oz) 04/29/2023 4:17 P M EST Height 162.6 cm (5' 4") 04/29/2023 4:17 PM EST Body Mass Index 19.95 04/29/2023 4:17 PM EST documented in this encounter Progress Notes * Larisa Lamb PA-C - 04/29/2023 4:35 PM EST 15w6d C/o low back pain, relieved with tylenol. Worse with activity. Denies bleeding, leaking. Reviewed comfort measures. Low risk NIPT, reviewed ONTD screening between 15-22 weeks. Pt would like to complete today. Urine culture collected given h/o UTI x 1 in this . RTC in 4 weeks, anatomy with next visit. Larisa Lamb PA-C documented in this encounter Nursing Notes * Joyce Mendes RN - 04/29/2023 4:18 PM EST Patient here for RHEA 15w6d C/o back pain No bleeding/leaking + ALBRECHT- Tylenol Helps documented in this encounter Plan of Treatment Scheduled Orders Name Type Priority Associated Diagnoses Orde r Schedule US PREG SINGLE/1ST GEST, 14 WEEKS OR LATER Medical Imaging Routine Supervision of other normal , antepartum Expected: 05/30/2023, Expires: 05/30/2024 CULTURE, URINE, QUANTITATIVE Lab Routine Supervision of other normal , antepartum Urinary tract infection in mother during first trimester of Ordered: 04/29/2023 MATERNAL SERUM AFP Lab Routine Supervision of other normal , antepartum Ordered: 04/29/2023 Health Maintenance Due Date Last Done Comments [...] of documented in this encounter Care Teams Operator Relationship Specialty Start Date End Date Josephine Mtz MD [address] [place] [address] [place] [address] PCP - General Family Medicine 10/21/21 documented as of this encounter
--- OUTSIDE RECORDS SUMMARY | 2023-10-13 09:07 | External Medical Summary | Summary of Care ---
Author Name Unknown Organization [facility] Address [address] [place] [address] Phone [phone] Care Team Providers Care Software Consultant Name Role Phone Josephine Mtz MD Primary Care Prov ider Reason for Visit * Reason Comments Return Visit Encounter Details Date Type Department Care Team ([facility] st Contact Info) Description 04/29/2023 4:15 PM EST Office Visit Gynecology/Obstetri abe Whitley [address] [place] [address] Lairsa Lamb PA-C [address] [place] [address] Nurse Gutierrez [employer] Leidy [address] [place] [address] Supervision of other normal , antepartum*; Depression [...] mRNA, LNP-s, No Pre serve, 2-Dose Series ([employer]) 02/18/2022 COVID-19, LNP-s, No Preserve , Chau-sucrose, Ages 12+ (Pfizer) 01/28/2022 DTaP Dipth/Tet/Acell Pertussis (Infanrix), Peds 12/06/2007 HPV Vaccine, 9-Valent 05/14/2018,11/10/2017 Hep A - Hepatitis A (ped/ado le, 1-18 Yrs) 05/14/2018,11/10/2017 IPV - Polio Virus Vaccine (Inact) 12/06/2007 MMR - Measles/Mumps/Rubella Vaccine 12/06/2007 Meningococcal Conjugate Vacc ine (Menactra/Menveo) 05/24/2015 Meningococcal MCV4O Conjugat e Vaccine (Menveo) 01/06/2019 Pneumococcal Conjugate Vacci ne, 20-valent ([id number]) 05/30/2022 Seasonal Influenza, PF, 6 M & [...] money to get more. Never true 10/13/2022 [place] Depression Scale Answer Date Recorded [place] Depression Scale Total 8 03/03/2023 The thought [...] of documented in this encounter Care Teams Software Consultant Relationship Specialty Start Date End Date Josephine Mtz MD [address] [place] [address] [place] [address] PCP - General Family Medicine 10/21/21 documented as of this encounter
--- OUTSIDE RECORDS SUMMARY | 2023-10-13 09:07 | External Medical Summary | Summary of Care ---
Author Name Unknown Organization [facility] Address [address] [place] [address] Phone [phone] Care Team Providers Care Cereal Supervisor Name Role Phone Josephine Mtz MD Primary Care Prov ider Reason for Visit * Reason Comments Return Visit Encounter Details Date Type Department Care Team (Late st Contact Info) Description 05/27/2023 2:00 PM EST Office Visit Gynecology/Obstetric s [facility] [address] [place] [address] Yessy Corona CRNP [address] [place] [address] Supervision of other normal , antepartum*; Depression complicating , antepartum; Urinary tract infection in mother during first trimester of Allergies No known active allergiesdocumented as of this encounter (statuses as of 05/27/2023) Medications Medication Sig Dispensed Refills Start Date [...] as of this encounter (statuses as of 05/27/2023) Active Problems Problem Noted Date Diagnosed Date [...] as of this encounter (statuses as of 05/27/2023) Resolved Problems Problem Noted Date Diagnosed Date [...] as of this encounter (statuses as of 05/27/2023) Immunizations Name Administration Dates Next Due COVID-19 [...] (Menveo) 01/06/2019 Pneumococcal Conjugate Vacci ne, 20-valent ([id number]) 05/30/2022 Seasonal Influenza, PF, 6 M & [...] money to get more. Never true 10/13/2022 [place] Depression Scale Answer Date Recorded [place] Depression Scale Total 8 03/03/2023 The thought [...] Sign Reading Time Taken Comments Blood Pressure 102/64 05/27/2023 1:51 PM EST Pulse - - Temperature - - Respiratory Rate - - Oxygen Saturation - - Inhaled Oxygen Concentration - - Weight 55.8 kg (123 lb) 05/27/2023 1:51 PM EST Height 162.6 cm (5' 4") 05/27/2023 1:51 PM EST Body Mass Index 21.11 05/27/2023 1:51 PM EST documented in this encounter Progress Notes * Yessy Corona CRNP - 05/27/2023 1:57 PM EST 19w6d Complaints: none Feeling well overall. +FM. No contractions, bleeding, or LOF. Anatomy u/s scheduled for next week. ZIYAD Sierra documented in this encounter Nursing Notes * Alexa Deal LPN - 05/27/2023 1:49 PM EST 19w6d documented in this encounter Plan of Treatment Upcoming Encounters Date Type Department Care Team (Late st Contact Info) Description 06/03/2023 12:15 PM EST Imaging Radiology [facility] [address] [facility] [place] [phone] 06/24/2023 11:45 AM EST Office Visit Gynecology/Obstetrics [facility] [address] [facility] [place] [address] [place], ZIYAD Rivera [address] [facility] [place] [address] Health Maintenance Due Date Last Done Comments [...] of documented in this encounter Care Teams Cereal Supervisor Relationship Specialty Start Date End Date Josephine Mtz MD [address] [place] [address] [place] [phone] PCP - General Family Medicine 10/21/21 documented as of this encounter
--- OUTSIDE RECORDS SUMMARY | 2023-10-13 09:07 | External Medical Summary | Summary of Care ---
Author Name Unknown Organization [facility] Address [address] [place] [address] Phone [phone] Care Team Providers Care Esl Teacher Name Role Phone Josephine Mtz MD Primary Care Prov ider Encounter Details Date Type Department Care Team (Late st Contact Info) Description 06/04/2023 Telephone [facility] [address] [place] [address] Larisa Lamb PA-C [address] [facility] [place] [phone] Allergies No known active allergiesdocumented as of this encounter (statuses as of 06/05/2023) Medications Medication Sig Dispensed Refills Start Date [...] as of this encounter (statuses as of 06/05/2023) Active Problems Problem Noted Date Diagnosed Date [...] as of this encounter (statuses as of 06/05/2023) Resolved Problems Problem Noted Date Diagnosed Date [...] as of this encounter (statuses as of 06/05/2023) Immunizations Name Administration Dates Next Due COVID-19 mRNA, LNP-s, No Pre serve, 2-Dose Series ([employer]) 02/18/2022 COVID-19, LNP-s, No Preserve , Chau-sucrose, Ages 12+ ([employer]) 01/28/2022 DTaP Dipth/Tet/Acell Pertussis (Infanrix), Peds 12/06/2007 HPV Vaccine, 9-Valent 05/14/2018,11/10/2017 Hep A - Hepatitis A (ped/ado le, 1-18 Yrs) 05/14/2018,11/10/2017 IPV - Polio Virus Vaccine (Inact) 12/06/2007 MMR - Measles/Mumps/Rubella Vaccine 12/06/2007 Meningococcal Conjugate Vacc ine (Menactra/Menveo) 05/24/2015 Meningococcal MCV4O Conjugat e Vaccine (Menveo) 01/06/2019 Pneumococcal Conjugate Vacci ne, 20-valent ([id number]) 05/30/2022 Seasonal Influenza, PF, 6 M & [...] money to get more. Never true 10/13/2022 [place] Depression Scale Answer Date Recorded [place] Depression Scale Total 8 03/03/2023 The thought [...] encounter Miscellaneous Notes * Telephone Encounter - Jenna Rodriguez OSA - 06/05/2023 8:42 AM EST Apt scheduled * Telephone Encounter - Arti Ludwig LPN - 06/04/2023 12:43 PM EST Patient notified. Please call her to schedule 2 week follow up missed anatomy * Telephone Encounter - Larisa Lamb PA-C - 06/04/2023 12:25 PM EST Please call patient and let know that growth normal. They were not able to see portions of baby's heart due to baby's position. Recommend repeat ultrasound in 2 weeks in follow up. Please assist in scheduling. documented in this encounter Plan of Treatment Upcoming Encounters Date Type Department Care Team (Late st Contact Info) Description 06/11/2023 10:00 AM EST Imaging Radiology [address] [place] [address] 06/24/2023 11:45 AM EST Office Visit Gynecology/Obstetrics [facility] [address] [place] [address] [place], ZIYAD Rivera [address] [place] [phone] Scheduled Orders Name Type Priority Associated Diagnoses Orde r Schedule US PREG LIMITED 1 OR MORE FETUSES Medical Imaging Routine Encounter for follow-up ultrasound of anatomy Expected: 06/11/2023, Expires: 07/05/2024 Health Maintenance Due Date Last Done Comments [...] Primary documented in this encounter Care Teams Esl Teacher Relationship Specialty Start Date End Date Josephine Mtz MD [address] [place] [address] [place] [phone] PCP - General Family Medicine 10/21/21 documented as of this encounter
--- OUTSIDE RECORDS SUMMARY | 2023-10-13 09:07 | External Medical Summary | Summary of Care ---
Author Name Unknown Organization [facility] Address [address] [place] [address] Phone [phone] Care Team Providers Care Chemistry Intern Name Role Phone Josephine Mtz MD Primary Care Prov ider Reason for Visit * Reason Comments Return Visit Encounter Details Date Type Department Care Team ([facility] st Contact Info) Description 04/29/2023 4:15 PM EST Office Visit Gynecology/Obstetri [facility] [address] [place] [address] Larisa Lamb PA-C [address] [place] [address] Nurse [facility] [address] [place] [address] Supervision of other normal , antepartum*; Depression [...] other during first trimester of 03/31/2023 Overview: AGRIMA 04/01 negative Supervision of other normal , [...] mRNA, LNP-s, No Pre serve, 2-Dose Series ([employer]) 02/18/2022 COVID-19, LNP-s, No Preserve , Chau-sucrose, Ages 12+ (Pf[employer]) 01/28/2022 DTaP Dipth/Tet/Acell Pertussis (Infanrix), Peds 12/06/2007 HPV Vaccine, 9-Valent 05/14/2018,11/10/2017 Hep A - Hepatitis A (ped/ado le, 1-18 Yrs) 05/14/2018,11/10/2017 IPV - Polio Virus Vaccine (Inact) 12/06/2007 MMR - Measles/Mumps/Rubella Vaccine 12/06/2007 Meningococcal Conjugate Vacc ine (Menactra/Menveo) 05/24/2015 Meningococcal MCV4O Conjugat e Vaccine (Menveo) 01/06/2019 Pneumococcal Conjugate Vacci ne, 20-valent ([id number]) 05/30/2022 Seasonal Influenza, PF, 6 M & [...] money to get more. Never true 10/13/2022 [place] Depression Scale Answer Date Recorded [place] Depression Scale Total 8 03/03/2023 The thought [...] documented in this encounter Plan of Treatment Pending Results Name Type Priority Associated Diagnoses Date /Time CULTURE, URINE, QUANTITATIVE Lab Routine Supervision of other normal , antepartum Urinary tract infection in mother during first trimester of 04/29/2023 4:53 PM EST Scheduled Orders Name Type Priority Associated Diagnoses Orde r Schedule US PREG SINGLE/1ST GEST, 14 WEEKS OR LATER Medical Imaging Routine Supervision of other normal , antepartum Expected: 05/30/2023, Expires: 05/30/2024 MATERNAL SERUM AFP Lab Routine Supervision of [...] of documented in this encounter Care Teams Chemistry Intern Relationship Specialty Start Date End Date Josephine Mtz MD [address] [place] [address] [place] [phone] PCP - General Family Medicine 10/21/21 documented as of this encounter
--- OUTSIDE RECORDS SUMMARY | 2023-10-13 09:07 | External Medical Summary | Summary of Care ---
Author Name Unknown Organization [facility] Address [address] [place] [address] Phone [phone] Care Team Providers Care Research Dairy Farm Supervisor Name Role Phone Josephine Mtz MD Primary Care Prov ider Reason for Visit * Reason Onset Date Comments Letter Requests 05/14/2023 Encounter Details Date Type Department Care Team ([facility] st Contact Info) Description 05/14/2023 Telephone Gynecology/Obstetrics [facility] [address] [place] [address] Larisa Lamb PA-C [address] [place] [phone] Letter Requests Allergies No known active allergiesdocumented as of this encounter (statuses as of 05/14/2023) Medications Medication Sig Dispensed Refills Start Date [...] as of this encounter (statuses as of 05/14/2023) Active Problems Problem Noted Date Diagnosed Date [...] as of this encounter (statuses as of 05/14/2023) Resolved Problems Problem Noted Date Diagnosed Date [...] as of this encounter (statuses as of 05/14/2023) Immunizations Name Administration Dates Next Due COVID-19 mRNA, LNP-s, No Pre serve, 2-Dose Series ([employer]) 02/18/2022 COVID-19, LNP-s, No Preserve , Chau-sucrose, Ages 12+ ([employer]) 01/28/2022 DTaP Dipth/Tet/Acell Pertussis (Infanrix), Peds 12/06/2007 HPV Vaccine, 9-Valent 05/14/2018,11/10/2017 Hep A - Hepatitis A (ped/ado le, 1-18 Yrs) 05/14/2018,11/10/2017 IPV - Polio Virus Vaccine (Inact) 12/06/2007 MMR - Measles/Mumps/Rubella Vaccine 12/06/2007 Meningococcal Conjugate Vacc ine (Menactra/Menveo) 05/24/2015 Meningococcal MCV4O Conjugat e Vaccine (Menveo) 01/06/2019 Pneumococcal Conjugate Vacci ne, 20-valent ([id number]) 05/30/2022 Seasonal Influenza, PF, 6 M & [...] money to get more. Never true 10/13/2022 [place] Depression Scale Answer Date Recorded [place] Depression Scale Total 8 03/03/2023 The thought [...] encounter Miscellaneous Notes * Telephone Encounter - Niki Clements LPN - 05/14/2023 2:19 PM EST Pt calling office requesting proof of be sent to [facility] in [place]. . Letter faxed; confirmation received. documented in this encounter Plan of Treatment Upcoming Encounters Date Type Department Care Team (Late st Contact Info) Description 05/27/2023 2:00 PM EST Office Visit Gynecology/Obstetrics [facility] [address] [place] [address] Yessy Corona CRNP [address] [place] [address] 06/03/2023 12:15 PM EST Imaging Radiology [facility] [address] [place] [address] Health Maintenance Due Date Last Done Comments [...] filedocumented as of this encounter Care Teams Research Dairy Farm Supervisor Relationship Specialty Start Date End Date Josephine Mtz MD [address] [place] [address] [place] [phone] PCP - General Family Medicine 10/21/21 documented as of this encounter
--- OUTSIDE RECORDS SUMMARY | 2023-10-13 09:08 | External Medical Summary ---
Author Name Unknown Address Unknown Organization : Laboratory Report Ordering Provider Test Date Status LEENA WU 04/29/2023 16:55:38 Final Observation Date Value Abnormality Reference (Units ) Status INTERPRETATION 04/29/2023 16:55:38 SEE BELOW Final Screen negative for open NTD . RISK FOR ONTD 04/29/2023 16:55:38 <1:5000 Final CALC'D GESTATIONAL AGE 1204/29/2023 16:55:38 15.9 Final AFP, SERUM 04/29/2023 16:55:38 36.2 (ng/mL) Final AFP MOM 04/29/2023 16:55:38 0.91 Final Reference Range:
NTD <2 .50
IDD <1.90
TWINS <4.00
TWINS IDD <3.50
TRIPLETS <4.50
The AFP test result indicates that this patient is
screen negative for open NTD. It should be noted
that normal test results can never guarantee the
of a normal baby and that 2-3% of newborns
have some type of physical or mental defect, many
of which are undetectable through any known
diagnostic technique.
This is a screening test, not a diagnostic test.
This risk assessment report is based in part on
demographic data provided by the ordering
physician. Please notify the laboratory promptly
if any data are incorrect. For assistance with
recalculations, please call your local [facility] laboratory. For assistance with
interpretation of these results, please contact
your Local [facility] genetic counselor or
call [phone] ([phone]).
Interpretive Cutoffs
Screen Positive for Open NTD:
> or = 2.50 adjusted MOM
> or = 1.90 adjusted MOM for insulin- dependent diabetics
> or = 4.00 adjusted MOM for twins
> or = 3.50 adjusted MOM for twins insulin-dependent diabetics
> or = 4.50 adjusted MOM for triplets
For additional information, please refer to
[email or web address]/faq/[email or web address]
(This link is being provided for
informational/educational purposes only.) DATE OF 04/29/2023 16:55:38 2002 Final COLLECTION DATE 04/29/2023 16:55:38 04/29/2023 Final MATERNAL WEIGHT 04/29/2023 16:55:38 115 (lbs ) Final EST'D DATE OF DELIVERY 04/29/2023 16:55:38 10/15/2023 Final MEG DETERMINED BY 04/29/2023 16:55:38 LMP Final MOTHER'S ETHNIC ORIGIN 04/29/2023 16:55:38 WHITE Final NUMBER OF FETUSES 04/29/2023 16:55:38 1 Final INSULIN DEPEND DIABETIC 04/29/2023 16:55:38 NO Final REPEAT SPECIMEN 04/29/2023 16:55:38 NO Final HX OF NEURAL TUBE DEFECTS 04/29/2023 16:55:38 NO Final PREV DOWN SYND 04/29/2023 16:55:38 NO Final DONOR EGG 04/29/2023 16:55:38 NO Final DONOR AGE: EGG RETRIEVAL 04/29/2023 16:55:38 NOT GIVEN Final Test performed by [facility]
[address] [facility],
[place] [address]

Negative Stripper: Judith Tapia MD,PHD,NAYELY
Test Reported by Jameel Bautista,
[facility],
[address] [place], [place]
Hardeep Guardado M.D., Ph.D., Director of Laboratories
, [facility] [id number] Performing Location
--- OUTSIDE RECORDS SUMMARY | 2023-10-13 09:08 | External Medical Summary ---
Author Name Unknown Address Unknown Organization [id number]:[facility] - [address] [place] [id number] Laboratory Report Ordering Provider Test Date Status LEENA WU 04/29/2023 16:53:02 Final Observation Date Value Abnormality Reference (Units) Status Bacteria identified in Specimen by Culture 04/29/2023 16:53:02 No significant growth Final Test: Culture, Urine, Quant itative
Specimen Source: Urine, Clean Catch
Specimen Type: Urine
Specimen Date: 04/29/2023 4:53 PM
Result Date: 04/30/2023 4:19 PM
Result Status: Final result
Resulting Lab: [facility]
[address]
[place] [id number]

CULTURE

No significant growth

null Performing Location [facility] - [address] [place] [id number]
[2023-10-13 09:09] LABS: Hematocrit (blood only) 31.9 % (37.0-47.0); Hemoglobin 10.9 g/dl (12.0-16.0); Mean Corpuscular Hemoglobin 32.5 pg (25.0-34.0); Mean Corpuscular Hgb Conc 34.2 g/dL (32.0-36.0); Mean Corpuscular Volume 95.2 fL (80.0-100.0); Mean Platelet Volume 9.3 fL (9.4-12.4); Platelet Count 239 K/uL (130-400); RDW Coefficient of Variation 13.7 % (11.5-14.5); RDW Standard Deviation 47.3 fL (36.4-46.3); Red Blood Count 3.35 M/uL (4.20-5.40); White Blood Count 14.02 K/ul (4.8-10.8)
[2023-10-13 09:21] LABS: Creatinine Urine Random 67.6 mg/dl; Protein Creatinine Ratio Urine 0.2 (0-0.2); Total Protein Urine Random 13.7 mg/dl (0-11.9)
[2023-10-13 09:23] LABS: Albumin Globulin Ratio 1.1 (0.9-2); Albumin Level 3.7 gm/dl (3.4-5.0); BUN Creatinine Ratio 12.5 (10-20); Bilirubin,Total 0.5 mg/dl (0.2-1.0); Creatinine Clr Calc Pharmacy 211.7 ml/min; Est GFR (African American) 148.9 ml/min; Est GFR (Non-African American) 128.5 ml/min; Globulin 3.4 gm/dl (2.5-4.0); Potassium 3.8 mmol/L (3.5-5.1); Total Protein 7.1 gm/dl (6.0-8.3)
[2023-10-13] MEDS: buPROPion HCl 75 MG TABLET PO SCH (09:47)
[2023-10-13] MEDS: PENICILLIN GK 6 MU in DEXTROSE 5% 250 ML IV ONE (09:54)
[2023-10-13] MEDS: OXYTOCIN 30 UNITS/NSS 30 UNITS/500 ML BAG IV PRN (09:55)
--- NOTE | 2023-10-13 13:01 | Obstetrical Progress Note ---
Date of Service October 13, 2023 Assessment & Plan (1) 39 weeks gestation of : Plan: Epidural if patient requires anticipate spontaneous vaginal delivery (2) Gestational hypertension: Plan: met criteria on 09/27-PI labs wnl P:C ratio 0.2 (3) Depression affecting in third trimester, antepartum: Plan: Continue to monitor, continue home meds (4) Positive GBS test: Plan: Start IV pen G for GBS prophylaxis (5) Antepartum anemia complicating in third trimester: Plan: Admission Hgb 10.9 Admission and Anticipated Discharge Date Admission Date: October 13, 2023 Subjective Ctx more painful Would like epidural after AROM Physical Exam Constitutional: WD/WN, vitals as above Genitourinary: FHT: baseline 130, mod variability, +accels, no decls, cat I tracing [place]: ctx 2-3 min, pit at 10 mil/hr Cx: 3/80/-2 , AROM with clear fluid, IUPC placed without issues. No cord felt. No complications Results & Data Vital Signs (Past 12 Hours) Vital Signs Temp Pulse Resp BP 10/13/23 12:31 20 10/13/23 12:31 10/13/23 12:31 94 H 10/13/23 12:31 133/81 10/13/23 12:01 93 H 10/13/23 12:01 147/82 H 10/13/23 12:00 10/13/23 12:00 37.1 C 10/13/23 11:30 16 10/13/23 11:30 10/13/23 11:04 91 H 10/13/23 11:04 143/86 H 10/13/23 11:00 10/13/23 11:00 20 10/13/23 10:30 20 10/13/23 10:30 20 10/13/23 10:00 20 10/13/23 10:00 20 10/13/23 09:48 96 H 10/13/23 09:48 143/86 H 10/13/23 08:23 96 H 10/13/23 08:23 146/86 H 10/13/23 08:03 37.1 C 10/13/23 07:55 100 H 142/93 H (2) Gestational hypertension Trimester: third trimester Qualified Code(s): O13.3 - Gestational [- induced] hypertension without significant proteinuria, third trimester
[2023-10-13] MEDS ORDERED: NALOXONE HCL 0.4 MG/1 ML VIAL/CARP IV PRN (13:21)
[2023-10-13] MEDS ORDERED: LIDOCAINE 2% MPF LOCAL 5 ML VIAL EPI PRN (13:21)
[2023-10-13] MEDS ORDERED: ePHEDrine sulfate 50 MG/ML AMP IV PRN (13:21)
[2023-10-13] MEDS ORDERED: NALBUPHINE HCL 5 MG in SYRINGE 0 ML IV PRN (13:21)
[2023-10-13] MEDS ORDERED: diphenhydrAMINE 50 MG/ML VIAL IV PRN (13:21)
[2023-10-13] MEDS ORDERED: ROPIVACAINE 0.5% PF 5 MG/ML 20 ML VIAL EPI PRN (13:21)
[2023-10-13] MEDS ORDERED: NALOXONE HCL 1 MG in SODIUM CHLORIDE 0.9% 1,000 ML IV PRN (13:21)
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
[2023-10-13] MEDS: PENICILLIN GK 3 MU in DEXTROSE 5% 100 ML IV PRN (13:37)
[2023-10-13] MEDS: fentANYL 2 MCG/ML BUPIVacaine 0.125%-NSS 100ML BAG EPI PRN (13:39)
[2023-10-13] MEDS: LIDOCAINE 2%/EPINEPHRINE 1:200,000 20 ML PF EPI STA (13:45)
[2023-10-13] MEDS: BUPIVACAINE 0.25% PF 30 ML VIAL EPI STA (13:46)
[2023-10-13] MEDS: BUPIVACAINE 0.25% PF 30 ML VIAL ONE (13:48)
[2023-10-13] MEDS: SODIUM CHLORIDE 0.9% PF INJ 10 ML VIAL EPI STA (13:49)
[2023-10-13] MEDS: fentANYL 2 MCG/ML BUPIVacaine 0.125%-NSS 100ML BAG ONE (13:49)
[2023-10-13] MEDS: LIDOCAINE 2%/EPINEPHRINE 1:200,000 20 ML PF ONE (13:49)
[2023-10-13] MEDS: SODIUM CHLORIDE 0.9% PF INJ 10 ML VIAL ONE (13:49)
[2023-10-13] MEDS: fentaNYL citrate PF 100 MCG/2 ML VIAL ONE (13:49)
[2023-10-13] MEDS: fentaNYL citrate PF 100 MCG/2 ML VIAL EPI STA (13:49)
[2023-10-13] MEDS ORDERED: NURSING L&D Epidural Breakthrough Pain Update ONE (14:55)
--- NOTE | 2023-10-13 15:17 | Obstetrical Progress Note ---
Date of Service October 13, 2023 Assessment & Plan (1) 39 weeks gestation of : Plan: anticipate spontaneous vaginal delivery (2) Gestational hypertension: Plan: met criteria on 09/27-[facility] labs wnl P:C ratio 0.2 (3) Depression affecting in third trimester, antepartum: Plan: Continue to monitor, continue home meds (4) Positive GBS test: Plan: continue IV pen G for GBS prophylaxis (5) Antepartum anemia complicating in third trimester: Plan: Admission Hgb 10.9 Admission and Anticipated Discharge Date Admission Date: October 13, 2023 Subjective patient still uncomfortable with epidural felt the urge to poop and I was asked to check the patient Physical Exam Genitourinary: heart tracing: Baseline 130, moderate variability, positive accelerations no decelerations, currently category 1 tracing Tocometer: Contractions every 1 to 2 minutes Oxytocin currently at 10 milliunits an hour Patient was checked and found to be 10/100/0 station Results & Data Vital Signs (Past 12 Hours) Vital Signs Temp Pulse Resp BP Pulse Ox 10/13/23 15:10 100 10/13/23 15:10 122 H 10/13/23 15:08 110 H 10/13/23 15:08 149/81 H 10/13/23 15:06 91 10/13/23 15:06 111 H 10/13/23 15:05 100 10/13/23 15:05 101 H 10/13/23 15:00 100 10/13/23 15:00 111 H 10/13/23 14:55 100 10/13/23 14:55 105 H 10/13/23 14:53 97 H 10/13/23 14:53 150/80 H 10/13/23 14:50 100 10/13/23 14:50 96 H 10/13/23 14:45 100 10/13/23 14:45 89 10/13/23 14:40 100 10/13/23 14:40 96 H 10/13/23 14:37 98 H 10/13/23 14:37 132/83 10/13/23 14:35 100 10/13/23 14:35 94 H 10/13/23 14:32 84 10/13/23 14:32 126/60 10/13/23 14:30 20 10/13/23 14:30 20 10/13/23 14:30 100 10/13/23 14:30 79 10/13/23 14:27 79 10/13/23 14:27 128/60 10/13/23 14:25 100 10/13/23 14:25 87 10/13/23 14:21 86 10/13/23 14:21 123/63 10/13/23 14:20 100 10/13/23 14:20 85 10/13/23 14:16 90 10/13/23 14:16 119/65 10/13/23 14:15 18 10/13/23 14:15 36.9 C 18 10/13/23 14:15 100 10/13/23 14:15 86 10/13/23 14:11 92 H 10/13/23 14:11 127/58 L 10/13/23 14:10 100 10/13/23 14:10 87 10/13/23 14:07 92 H 10/13/23 14:07 128/63 10/13/23 14:05 100 10/13/23 14:05 82 10/13/23 14:03 18 10/13/23 14:03 18 10/13/23 14:02 96 H 10/13/23 14:02 159/75 H 10/13/23 14:00 100 10/13/23 14:00 101 H 10/13/23 14:00 102 H 10/13/23 14:00 150/64 H 10/13/23 13:58 20 10/13/23 13:58 20 10/13/23 13:58 91 H 10/13/23 13:58 136/68 10/13/23 13:56 90 10/13/23 13:56 137/67 10/13/23 13:55 100 10/13/23 13:55 91 H 10/13/23 13:54 103 H 10/13/23 13:54 136/62 10/13/23 13:53 20 10/13/23 13:53 20 10/13/23 13:52 102 H 10/13/23 13:52 144/67 H 10/13/23 13:50 100 10/13/23 13:50 96 H 10/13/23 13:50 96 H 10/13/23 13:50 138/65 10/13/23 13:48 97 H 10/13/23 13:48 146/73 H 10/13/23 13:46 97 H 10/13/23 13:46 151/80 H 10/13/23 13:45 100 10/13/23 13:45 101 H 10/13/23 13:44 100 H 10/13/23 13:44 150/91 H 10/13/23 13:42 97 H 10/13/23 13:42 141/86 H 10/13/23 13:40 100 10/13/23 13:40 100 H 10/13/23 13:35 99 10/13/23 13:35 119 H 10/13/23 13:30 20 10/13/23 13:30 20 10/13/23 13:30 100 10/13/23 13:30 106 H 10/13/23 13:25 100 10/13/23 13:25 102 H 10/13/23 13:22 91 10/13/23 13:22 106 H 10/13/23 13:20 100 10/13/23 13:20 101 H 10/13/23 13:15 100 10/13/23 13:15 108 H 10/13/23 12:31 20 10/13/23 12:31 20 10/13/23 12:31 94 H 10/13/23 12:31 133/81 10/13/23 12:01 93 H 10/13/23 12:01 147/82 H 10/13/23 12:00 20 10/13/23 12:00 37.1 C 20 10/13/23 11:30 16 10/13/23 11:30 16 10/13/23 11:04 91 H 10/13/23 11:04 143/86 H 10/13/23 11:00 20 10/13/23 11:00 20 10/13/23 10:30 20 10/13/23 10:30 20 10/13/23 10:00 20 10/13/23 10:00 20 10/13/23 09:48 96 H 10/13/23 09:48 143/86 H 10/13/23 08:23 96 H 10/13/23 08:23 146/86 H 10/13/23 08:03 37.1 C 20 10/13/23 07:55 100 H 142/93 H (2) Gestational hypertension Trimester: third trimester Qualified Code(s): O13.3 - Gestational [- induced] hypertension without significant proteinuria, third trimester
[2023-10-13] MEDS: fentaNYL citrate PF 100 MCG/2 ML VIAL EPI PRN (15:21)
[2023-10-13] MEDS: SODIUM CHLORIDE 0.9% PF INJ 10 ML VIAL EPI PRN (15:22)
[2023-10-13] MEDS: BUPIVACAINE 0.25% PF 30 ML VIAL EPI PRN (15:22)
--- NOTE | 2023-10-13 15:23 | Anesthesia Procedure Note ---
Date of Service October 13, 2023 Anesthesia Epidural Re-Dose Vital Signs Temp Pulse Resp BP Pulse Ox 98.4 F 123 H 20 179/80 H 100 10/13/23 14:15 10/13/23 15:21 10/13/23 14:30 10/13/23 15:21 10/13/23 15:20 Notes Pain Intensity: 8 Dilatation (cm): 10.0 Effacement (%): 100 Called by nursing to evaluate epidural as the patient is having increased pain. The epidural was re-dosed with the following medications (all medications via epidural route) after negative aspiration of the epidural catheter for CSF/HEME. 0.125% Bupivacaine (8ml) with 100 mcg Fentanyl After Epidural Re-Dose Mental Status: alert / awake / arousable Pain: improving with treatment Airway Patency, RR, SpO2: stable & adequate BP & HR: stable & adequate
[2023-10-13] MEDS ORDERED: HYDROCORTISONE ACETATE 25 MG SUPP PR PRN (17:19)
--- NOTE | 2023-10-13 17:20 | Delivery Summary ---
Vaginal Delivery Summary Date of Service October 13, 2023 Vaginal Delivery Summary Delivery Note History synopsis/labor course Patient is a 22-year-old -0-1-0 at 39 weeks and 5 days who presented for elective induction of labor. Upon review of record she was found to meet criteria for gestational hypertension. PIH labs were within normal limits. She was checked and found to be 3 cm dilated and oxytocin was started for augmentation. She was GBS positive and received total of 2 doses of penicillin G prior to delivery. Upon recheck after starting oxytocin she remained unchanged and AROM was performed. Patient received epidural after AROM due to labor pains. She progressed to complete and I was called for delivery Delivery Summary: Patient was placed in the dorsal lithotomy position. She was prepped and draped in the usual sterile fashion. Upon maternal pushing the head was delivered atraumatically followed by the anterior shoulders, posterior shoulders then the remainder of the infants body. Body cord x1 The was immediately placed on mother's abdomen, dried and stimulated. Delayed cord clamping for 60 seconds was performed. The infants mouth and nose were bulb suctioned by nursing staff. A female was delivered at 1702, weight pending with APGARS of 7 at 1 minute and 9 at 5 minutes. The infant was handed off to the awaiting nursing staff. Cord blood gases were not obtained. Bladder was drained, 400mls. The placenta delivered intact with three vessel cord at 1707. Placenta was sent to pathology. Thirty units of Pitocin were added to the IV fluid and allowed to run freely. Uterine massage was performed until uterus was deemed firm. Upon inspection of the perineum, cervix were intact. Right and left labial lacreation was noted which was repaired with 3-0 vicryl in the usual fashion. Upon re-inspection the patient was hemostatic. Uterus again massaged and found to be firm. Needle and sponge counts were correct. Patient was stable and allowed to recover in L&D room. was stable and remained in room with mother in the labor and delivery unit. QBL 150
[2023-10-13] MEDS: DIPHTHER/TETAN/PERTUS Vaccine (Tdap, Adol/Adult) 0.5mL IM ONE (17:44)
--- NOTE | 2023-10-13 18:07 | Anesthesia Procedure Note ---
Date of Service October 13, 2023 Anesthesia Post Epidural Note Vital Signs Vital Signs: Temp Pulse Resp BP Pulse Ox 98.8 F 120 H 18 149/76 H 100 10/13/23 17:14 10/13/23 17:59 10/13/23 17:44 10/13/23 17:59 10/13/23 17:12 Pain Intensity Lower Abdomen: Pain Intensity: 7 Notes Mental Status: alert / awake / arousable and participated in evaluation Nausea / Vomiting: adequately controlled Pain: adequately controlled Airway Patency, RR, SpO2: stable & adequate BP & HR: stable & adequate Hydration State: stable & adequate Neuraxial Anesthesia: was administered and sensory block is resolving Anesthetic Complications: no major complications apparent and Pt Satisfied with anesthetic care Epidural: Removed without complications and With tip intact
[2023-10-13] MEDS: BENZOCAINE 20% SPRY 85 APPLN/85 GM CAN EXT PRN (19:01)
[2023-10-13] MEDS: ACETAMINOPHEN 325 MG TAB PO PRN (19:02)
[2023-10-13] MEDS: ePHEDrine sulfate 50 MG/ML AMP ONE (20:19)
[2023-10-13] MEDS: DOCUSATE SODIUM 100 MG CAP PO SCH (20:44)
[2023-10-14] MEDS: IBUPROFEN 600 MG TAB PO PRN (03:15)
[2023-10-14 06:39] LABS: Hematocrit (blood only) 28.4 % (37.0-47.0); Hemoglobin 9.6 g/dl (12.0-16.0); Mean Corpuscular Hemoglobin 32.2 pg (25.0-34.0); Mean Corpuscular Hgb Conc 33.8 g/dL (32.0-36.0); Mean Corpuscular Volume 95.3 fL (80.0-100.0); Mean Platelet Volume 9.4 fL (9.4-12.4); Platelet Count 213 K/uL (130-400); RDW Coefficient of Variation 13.8 % (11.5-14.5); RDW Standard Deviation 48.2 fL (36.4-46.3); Red Blood Count 2.98 M/uL (4.20-5.40); White Blood Count 16.58 K/ul (4.8-10.8)
[2023-10-14 07:03] LABS: Albumin Globulin Ratio 1.1 (0.9-2); BUN Creatinine Ratio 10.4 (10-20); Bilirubin,Total 0.7 mg/dl (0.2-1.0); Calcium 8.5 mg/dl (8.6-10.3); Creatinine Clr Calc Pharmacy 112.8 ml/min; Est GFR (African American) 128.8 ml/min; Est GFR (Non-African American) 111.1 ml/min; Globulin 2.7 gm/dl (2.5-4.0); Potassium 3.9 mmol/L (3.5-5.1); Total Protein 5.7 gm/dl (6.0-8.3)
--- NOTE | 2023-10-14 07:54 | Obstetrical Progress Note ---
Date of Service October 14, 2023 Assessment & Plan Admission and Anticipated Discharge Date Admission Date: October 13, 2023 Subjective Patient is seen and examined. She feels well, no complaints. Ambulating without dizziness Voiding without difficulty Tolerating regular diet with out N&V Bleeding is minimal No fever/ chills/ CP/ SOB/ N&V/ Leg pain Breast feeding without problems Vital Signs Temp Pulse Resp BP Pulse Ox O2 Del Method 10/14/23 03:30 37.2 C 86 18 125/80 97 Room Air 10/14/23 00:30 36.5 C 90 16 114/67 96 Room Air 10/13/23 20:40 37.2 C 91 H 20 147/81 H 98 Room Air Lab Results 10/13/23 10/13/23 10/14/23 Range/Units 08:41 Unknown 05:55 WBC 14.02 H 16.58 H (4.8-10.8) K/ul RBC 3.35 L 2.98 L (4.20-5.40) M/uL Hgb 10.9 L 9.6 L (12.0-16.0) g/dl Hct 31.9 L 28.4 L (37.0-47.0) % MCV 95.2 95.3 (80.0-100.0) fL MCH 32.5 32.2 (25.0-34.0) pg MCHC 34.2 33.8 (32.0-36.0) g/dL RDW Std Deviation 47.3 H 48.2 H (36.4-46.3) fL RDW Coeff of La 13.7 13.8 (11.5-14.5) % Plt Count 239 213 (130-400) K/uL MPV 9.3 L 9.4 (9.4-12.4) fL Sodium 137 138 (136-145) mmol/L Potassium 3.8 3.9 (3.5-5.1) mmol/L Chloride 107 108 H (98-107) mmol/L Carbon Dioxide 21 22 (21-32) mmol/L Anion Gap 9 8 (3-11) BUN 8 8 (6-23) mg/dl Creatinine 0.64 0.77 (0.6-1.2) mg/dl Est Cr Clr Drug Dosing 211.7 112.8 ml/min Est GFR ( Amer) 148.9 128.8 ml/min Est GFR (Non-Af Amer) 128.5 111.1 ml/min BUN/Creatinine Ratio 12.5 10.4 (10-20) Glucose 91 73 (70-99(Fasting)) mg/dl Calcium 9.0 8.5 L (8.6-10.3) mg/dl Total Bilirubin 0.5 0.7 (0.2-1.0) mg/dl AST 14 20 (13-39) U/L ALT 8 8 (7-52) U/L Alkaline Phosphatase 127 H 98 (34-104) U/L Total Protein 7.1 5.7 L (6.0-8.3) gm/dl Albumin 3.7 3.0 L (3.4-5.0) gm/dl Globulin 3.4 2.7 (2.5-4.0) gm/dl Albumin/Globulin Ratio 1.1 1.1 (0.9-2) Ur Random Creatinine 67.6 mg/dl U Random Total Protein 13.7 H (0-11.9) mg/dl Protein/Creatinin Ratio 0.2 (0-0.2) RPR Nonreactive (Nonreactive) PE: General: Alert, orientedx3, NAD Abd: soft, NT, fundus firm, below Umbilicus Perineum intact, Lochia rubra minimal Ext; NT, no edema AP: 22 yo s/p , ppd# 1 VSS Afebrile doing well Continue routine care All questions were answered D/C home tomorrow Results & Data Vital Signs (Past 12 Hours) Vital Signs Temp Pulse Resp BP Pulse Ox O2 Del Method 10/14/23 03:30 37.2 C 86 18 125/80 97 Room Air 10/14/23 00:30 36.5 C 90 16 114/67 96 Room Air 10/13/23 20:40 37.2 C 91 H 20 147/81 H 98 Room Air
[2023-10-14] MEDS: PRENATAL VITAMIN 1 TAB PO SCH (08:36)
[2023-10-14] MEDS: buPROPion HCl 75 MG TABLET PO SCH (09:23)
[2023-10-14] MEDS: bisacodyL 5 MG TABEC PO SCH (20:11)
[2023-10-15 06:11] LABS: Hematocrit (blood only) 29.2 % (37.0-47.0); Mean Corpuscular Hemoglobin 32.9 pg (25.0-34.0); Mean Corpuscular Hgb Conc 34.2 g/dL (32.0-36.0); Mean Corpuscular Volume 96.1 fL (80.0-100.0); Mean Platelet Volume 8.9 fL (9.4-12.4); Platelet Count 217 K/uL (130-400); RDW Coefficient of Variation 13.9 % (11.5-14.5); RDW Standard Deviation 48.6 fL (36.4-46.3); Red Blood Count 3.04 M/uL (4.20-5.40); White Blood Count 14.34 K/ul (4.8-10.8)
[2023-10-15 06:28] LABS: Albumin Globulin Ratio 1.1 (0.9-2); Albumin Level 3.2 gm/dl (3.4-5.0); BUN Creatinine Ratio 22.7 (10-20); Bilirubin,Total 0.4 mg/dl (0.2-1.0); Calcium 8.1 mg/dl (8.6-10.3); Creatinine Clr Calc Pharmacy 131.6 ml/min; Est GFR (African American) 147.4 ml/min; Est GFR (Non-African American) 127.2 ml/min; Globulin 2.9 gm/dl (2.5-4.0); Total Protein 6.1 gm/dl (6.0-8.3)
[2023-10-15 06:43] LABS: Basophils # (auto) 0.09 K/uL (0.00-0.20); Basophils % (auto) 0.6 %; Eosinophils # (auto) 0.34 K/uL (0.00-0.50); Eosinophils % (auto) 2.4 %; Immature Granulocytes % (auto) 5.6 %; Lymphocytes # (auto) 2.22 K/uL (1.20-3.40); Lymphocytes % (auto) 15.5 %; Monocytes # (auto) 1.14 K/uL (0.11-0.59); Monocytes % (auto) 7.9 %; Neutrophils # (auto) 9.75 K/uL (1.40-6.50)
[2023-10-15] MEDS: NIFEdipine EXTENDED REL 30 MG TABCR PO SCH (07:49)
--- NOTE | 2023-10-15 11:36 | Obstetrical Progress Note ---
Date of Service October 15, 2023 Subjective Ambulation: ambulating normally Voiding: no voiding problems Passing Gas:: Yes Diet Tolerance:: regular diet Lochia:: Small Feeding Type:: breast feeding Current Pain Level(1-10): 0 doing well Physical Exam Constitutional WD/WN, vitals as above Gastrointestinal (Abdomen) Inspection/Auscultation: abdomen normal to inspection abdomen soft and non-tender fundus firm Musculoskeletal Extremities: extremities normal to inspection Skin no rashes, warm and dry Neurologic patellar DTR's 2+ bilat, sensation intact Psychiatric A+Ox3, euthymic affect Results & Data Vital Signs (Past 12 Hours) Vital Signs Temp Pulse Resp BP Pulse Ox O2 Del Method 10/15/23 07:30 36.7 C 87 18 138/87 97 Room Air Laboratory Results 10/13/23 10/13/23 10/14/23 08:41 Unknown 05:55 WBC 14.02 H 16.58 H RBC 3.35 L 2.98 L Hgb 10.9 L 9.6 L Hct 31.9 L 28.4 L MCV 95.2 95.3 MCH 32.5 32.2 MCHC 34.2 33.8 RDW Std Deviation 47.3 H 48.2 H RDW Coeff of La 13.7 13.8 Plt Count 239 213 MPV 9.3 L 9.4 Immature Gran % (Auto) Neut % (Auto) Lymph % (Auto) [place] % (Auto) Eos % (Auto) Baso % (Auto) Neut # (Auto) Lymph # (Auto) [place] # (Auto) Eos # (Auto) Baso # (Auto) Immature Gran # (Auto) Sodium 137 138 Potassium 3.8 3.9 Chloride 107 108 H Carbon Dioxide 21 22 Anion Gap 9 8 BUN 8 8 Creatinine 0.64 0.77 Est Cr Clr Drug Dosing 211.7 112.8 Est GFR ( Amer) 148.9 128.8 Est GFR (Non-Af Amer) 128.5 111.1 BUN/Creatinine Ratio 12.5 10.4 Glucose 91 73 Calcium 9.0 8.5 L Total Bilirubin 0.5 0.7 AST 14 20 ALT 8 8 Alkaline Phosphatase 127 H 98 Total Protein 7.1 5.7 L Albumin 3.7 3.0 L Globulin 3.4 2.7 Albumin/Globulin Ratio 1.1 1.1 Ur Random Creatinine 67.6 U Random Total Protein 13.7 H Protein/Creatinin Ratio 0.2 RPR Nonreactive 10/15/23 05:51 WBC 14.34 H RBC 3.04 L Hgb 10.0 L Hct 29.2 L MCV 96.1 MCH 32.9 MCHC 34.2 RDW Std Deviation 48.6 H RDW Coeff of La 13.9 Plt Count 217 MPV 8.9 L Immature Gran % (Auto) 5.6 Neut % (Auto) 68.0 Lymph % (Auto) 15.5 [place] % (Auto) 7.9 Eos % (Auto) 2.4 Baso % (Auto) 0.6 Neut # (Auto) 9.75 H Lymph # (Auto) 2.22 [place] # (Auto) 1.14 H Eos # (Auto) 0.34 Baso # (Auto) 0.09 Immature Gran # (Auto) 0.80 H Sodium 138 Potassium 4.0 Chloride 108 H Carbon Dioxide 23 Anion Gap 7 BUN 15 Creatinine 0.66 Est Cr Clr Drug Dosing 131.6 Est GFR ( Amer) 147.4 Est GFR (Non-Af Amer) 127.2 BUN/Creatinine Ratio 22.7 H Glucose 85 Calcium 8.1 L Total Bilirubin 0.4 AST 24 ALT 11 Alkaline Phosphatase 96 Total Protein 6.1 Albumin 3.2 L Globulin 2.9 Albumin/Globulin Ratio 1.1 Ur Random Creatinine U Random Total Protein Protein/Creatinin Ratio RPR
[2023-10-15] MEDS ORDERED: bisacodyL 10 MG SUPP PR PRN (17:19)
== END 2023-10-15 12:34 | disposition home or self-care (01) | DRG 807 ==
LOC: 4S1 07:39 → 4E2 20:34

== ENCOUNTER 2025-02-05 13:59 | Observation (INO) ==
[2025-02-05 14:58] LABS: Hematocrit (blood only) 37.3 % (37.0-47.0); Hemoglobin 12.3 g/dl (12.0-16.0); Immature Granulocytes # (auto) 0.02 K/uL (0.01-0.20); Immature Granulocytes % (auto) 0.3 %; Mean Corpuscular Hemoglobin 30.1 pg (25.0-34.0); Mean Corpuscular Volume 91.4 fL (80.0-100.0); Platelet Count 233 K/uL (130-400); RDW Standard Deviation 39.7 fL (36.4-46.3); Red Blood Count 4.08 M/uL (4.20-5.40); White Blood Count 7.65 K/ul (4.8-10.8)
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
[2025-02-05 15:12] LABS: Pregnancy Test, Serum Negative (Negative)
[2025-02-05 15:15] LABS: Alanine Aminotransferase 7.0 U/L (7-52); Albumin Globulin Ratio 1.6 (0.9-2); Albumin Level 4.7 gm/dl (3.4-5.0); Alkaline Phosphatase 75.0 U/L (34-104); Anion Gap 7.0 (3-11); Bilirubin,Total 0.8 mg/dl (0.2-1.0); Blood Urea Nitrogen 27.0 mg/dl (6-23); Calcium 9.3 mg/dl (8.6-10.3); Carbon Dioxide 25.0 mmol/L (21-32); Chloride 104.0 mmol/L (98-107); Creatinine Clr Calc Pharmacy 89.1 ml/min; Globulin 2.9 gm/dl (2.5-4.0); Glucose 118.0 mg/dl (70-99(Fasting)); Lipase 14.0 U/L (11-82); Potassium 4.2 mmol/L (3.5-5.1); Sodium 136.0 mmol/L (136-145); Total Protein 7.6 gm/dl (6.0-8.3)
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
--- NOTE | 2025-02-05 16:18 | XRay Report ---
EXAM: X-ray chest one-view portable CLINICAL HISTORY: Chest pain not PRIORS: 10/09/2024, dating back to 2018 TECHNIQUE: Frontal view chest FINDINGS: The chest is well-expanded. No airspace consolidation, effusion or congestive changes. Heart size is normal. No pneumothorax. Trachea is patent. Osseous structures demonstrate no acute abnormality. No radiopaque foreign body. IMPRESSION: No plain film evidence of an acute cardiopulmonary process. Electronically signed by Caterina Alcantar 02-05-2025 4:13 PM
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
[2025-02-05] MEDS: SODIUM CHLORIDE 0.9% 1,000 ML IV ONE (16:52)
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
[2025-02-05] MEDS: AMPICILLIN/SULBACTAM SOD 3,000 MG/100 ML BAG IV SCH (18:30)
[2025-02-05] MEDS: LACTATED RINGER'S 1,000 ML IV SCH (18:32)
[2025-02-05] MEDS: KETOROLAC TROMETHAMINE 15 MG/ML VIAL IV PRN (18:32)
--- NOTE | 2025-02-05 20:42 | Electrocardiogram Report ---
Test Reason : Blood Pressure : */* mmHG Vent. Rate : 84 BPM Atrial Rate : 84 BPM P-R Int : 132 ms QRS Dur : 86 ms QT Int : 370 ms P-R-T Axes : 80 68 48 degrees QTcB Int : 437 ms Normal sinus rhythm with sinus arrhythmia Early repolarization When compared with ECG of 09-Oct-2024 16:33, No significant change Confirmed by Mau Mcadams ([id number]) on 02/05/2025 8:42:02 PM Referred By: Confirmed By: Mau Mcadams
[2025-02-05] MEDS: ACETAMINOPHEN SUSP 325 MG/10.15 ML UDC PO PRN (21:25)
[2025-02-06 07:38] LABS: Hematocrit (blood only) 34.8 % (37.0-47.0); Hemoglobin 11.3 g/dl (12.0-16.0); Mean Corpuscular Hemoglobin 30.1 pg (25.0-34.0); Mean Corpuscular Volume 92.8 fL (80.0-100.0); Platelet Count 213 K/uL (130-400); RDW Standard Deviation 40.7 fL (36.4-46.3); Red Blood Count 3.75 M/uL (4.20-5.40); White Blood Count 5.28 K/ul (4.8-10.8)
[2025-02-06] MEDS: ESCITALOPRAM OXALATE 10 MG TAB PO SCH (07:53)
[2025-02-06] MEDS: CHLORHEXIDINE GLUCONATE 0.12% 480 ML MT PRN (07:59)
[2025-02-06 08:03] LABS: Anion Gap 5.0 (3-11); Blood Urea Nitrogen 16.0 mg/dl (6-23); Calcium 8.9 mg/dl (8.6-10.3); Carbon Dioxide 27.0 mmol/L (21-32); Chloride 108.0 mmol/L (98-107); Creatinine Clr Calc Pharmacy 101.6 ml/min; Glucose 82.0 mg/dl (70-99(Fasting)); Potassium 3.8 mmol/L (3.5-5.1); Sodium 140.0 mmol/L (136-145)
--- NOTE | 2025-02-06 13:01 | Hospitalist Progress Note ---
Date of Service February 06, 2025 Assessment & Plan (1) Chronic dental infection: (2) Chronic dental pain: (3) Acute dehydration: (4) Anxiety: (5) Depression: Plan 24 year old woman with anxiety/depression who presents with worsening dental pains especially in the past week associated with inability to tolerate po. Acute on chronic dental infection and pain Keep on full liquid diet for now appreciate IV unasyn for now Tylenol prn mild to moderate pain Toradol prn for severe pain Appreciate maxillofacial surgery input and recommendation Will have proposed dental surgery tomorrow Reports she last took her Welbutrin and Lexapro 2 weeks ago and yet to excelsior picker refil Continue Welbutrin and Lexapro Counseled regarding vaping DVT ppx- SCD, Ambulate Code status- Full Admission and Anticipated Discharge Date Admission Date: February 05, 2025 Subjective 02/06/2025 The patient was seen and examined in the medical floor in presence of her father She has been feeling and he will get and the dental pain is less She ate her meals Denies any fever and/or chills and she will have dental surgery tomorrow Review of Systems Review of Systems: All systems reviewed and are unremarkable except as noted below Physical Exam Physical Exam: Lying in bed without any acute distress Constitutional: + ill appearing and average body habitus Eyes: PERRL, conjunctivae normal, anicteric sclerae ENMT: external ear and nose normal, oropharynx normal Neck: trachea midline, no thyromegaly Respiratory: no respiratory distress Auscultation: lungs clear to auscultation bilaterally Cardiovascular: Rate/Rhythm: regular rate and regular rhythm; not tachycardic Heart Sounds: normal S1 and normal S2; no murmur Extremities: no edema Gastrointestinal (Abdomen): Inspection/Auscultation: normal bowel sounds; a bdomen not distended Percussion/Palpation: abdomen soft; abdomen nontender Musculoskeletal: No acute arthritis involving any of the joint Neurologic: normal touch/pain/proprioception and moves all extremities; no focal motor deficits Lymphatic: no cervical or axillary lymphadenopathy Results & Data Results & Data Vital Signs (Past 12 Hours) Vital Signs Temp Pulse Resp BP Pulse Ox O2 Del Method 02/06/25 07:16 36.4 C L 60 16 96/59 L 97 Room Air Laboratory Results Short CBC 02/05/25 02/06/25 Range/Units Unknown 07:08 WBC 7.65 5.28 (4.8-10.8) K/ul Hgb 12.3 11.3 L (12.0-16.0) g/dl Hct 37.3 34.8 L (37.0-47.0) % Plt Count 233 213 (130-400) K/uL BMP 02/05/25 02/06/25 Unknown 07:08 Sodium 136 140 Potassium 4.2 3.8 Chloride 104 108 H Carbon Dioxide 25 27 BUN 27 H 16 Creatinine 0.73 0.64 Glucose 118 H 82 Calcium 9.3 8.9 Liver Function 02/05/25 Range/Units Unknown Total Bilirubin 0.8 (0.2-1.0) mg/dl AST 13 (13-39) U/L ALT 7 (7-52) U/L Alkaline Phosphatase 75 (34-104) U/L Albumin 4.7 (3.4-5.0) gm/dl Medications Administered Current Inpatient Medications Acetaminophen (Acetaminophen Susp 325 Mg/10.15 Ml Udc) 650 mg PO Q6H PRN PRN Reason: Mild to moderate pain Stop: 03/07/25 17:02 Last Admin: 02/06/25 12:09 Dose: 650 mg Bupropion HCl (Bupropion Xl 300 Mg Tabcr) 300 mg PO QAM [facility] Stop: 03/08/25 08:59 Last Admin: 02/06/25 07:53 Dose: 300 mg Chlorhexidine Gluconate (Chlorhexidine Gluconate 0.12% 480 Ml) 15 ml MT Q12 PRN PRN Reason: Prophylaxis Stop: 03/07/25 16:42 Last Admin: 02/06/25 07:59 Dose: 15 ml Escitalopram Oxalate (Escitalopram Oxalate 10 Mg Tab) 5 mg PO DAILY [facility] Stop: 03/08/25 08:59 Last Admin: 02/06/25 07:53 Dose: 5 mg Lactated Ringer's (Lr) 1,000 mls @ 80 mls/hr IV .[id number] [facility] Stop: 02/08/25 17:00 Last Admin: 02/06/25 09:26 Dose: 80 mls/hr Ampicillin Sodium/Sulbactam Sodium (Unasyn) 3,000 mg in 100 mls @ 200 mls/hr IV Q6H [facility] Stop: 02/15/25 17:59 Last Infusion: 02/06/25 12:44 Dose: Infused Ketorolac Tromethamine (Ketorolac Tromethamine 15 Mg/Ml Vial) 15 mg IV Q6H PRN PRN Reason: Severe Pain (Scale 7, 8, 9,10) Stop: 02/06/25 17:00 Last Admin: 02/06/25 09:25 Dose: 15 mg
[2025-02-07] MEDS: HYDROmorphone INJ 0.5 MG/0.5 ML SYR IV PRN (06:38)
[2025-02-07] MEDS ORDERED: PROPOFOL IV EMULSION 10 MG/ML 20 ML VIAL IV ONE (07:38)
[2025-02-07] MEDS ORDERED: MIDAZOLAM HCL 1 MG/ML 2ML VIAL ONE (07:38)
[2025-02-07] MEDS ORDERED: ROCURONIUM BROMIDE 10 MG/ML 5 ML VIAL IV ONE (07:38)
[2025-02-07] MEDS ORDERED: ONDANSETRON INJ 2 MG/ML 2 ML VIAL ONE (07:38)
[2025-02-07] MEDS ORDERED: DEXAMETHASONE SOD INJ 4 MG/ML VIAL ONE (07:38)
[2025-02-07] MEDS ORDERED: LIDOCAINE 2% 2 ML VIAL/AMP(20MG/ML) INFIL ONE (07:38)
--- NOTE | 2025-02-07 08:41 | History & Physical Bridge Note ---
Date of Service February 07, 2025 History & Physical Bridge Note I have examined the patient, reviewed the History & Physical and in the interval since the performance of the History & Physical I have noted the following changes of clinical significance: no changes noted
[2025-02-07] MEDS: LACTATED RINGER'S 1,000 ML IV SCH (08:42)
[2025-02-07] MEDS ORDERED: PROMETHAZINE HCL 6.25 MG in SODIUM CHLORIDE 0.9% 50 ML IV PRN (08:45)
[2025-02-07] MEDS ORDERED: HYDROmorphone INJ 1 MG/ML SYRINGE IV PRN (08:45)
[2025-02-07] MEDS ORDERED: NALOXONE HCL 0.4 MG/1 ML VIAL/CARP IV PRN (08:45)
[2025-02-07] MEDS ORDERED: ATROPINE SULFATE 0.1 MG/ML 10ML SYR IV PRN (08:45)
[2025-02-07] MEDS ORDERED: FLUMAZENIL 0.1 MG/1 ML 10 ML VIAL IV PRN (08:45)
[2025-02-07] MEDS ORDERED: DexMEDEtomidine HCL IV 100 MCG/ML VIAL IV ONE (09:02)
[2025-02-07] MEDS ORDERED: GLYCOPYRROLATE 0.2 MG/ML VIAL ONE (09:46)
[2025-02-07] MEDS ORDERED: NEOSTIGMINE METHYLSULFATE 1 MG/ML 10ML VIAL ONE (09:46)
[2025-02-07] MEDS: BUPIVACAINE/EPINEPHRINE 0.5% 1:200,000 1.8 ML CARP ONE (09:48)
[2025-02-07] MEDS ORDERED: ACETAMINOPHEN 325 MG TAB PO PRN (09:57)
[2025-02-07] MEDS: ONDANSETRON INJ 2 MG/ML 2 ML VIAL IV PRN (10:15)
--- NOTE | 2025-02-07 10:19 | Post Operative Brief Note ---
PG Immediate Post Op with CF Date of Surgery February 07, 2025 Pre & Post Diagnosis Operation Date: 02/07/25 08:40 Pre-Op Diagnosis: Chronic dental infection, Pain, dental Post-Op Diagnosis: Chronic dental infection, Pain, dental I identified the patient and participated in the time-out.: Yes Procedure Operation Date: 02/07/25 08:40 Actual Procedures p Incision and Drainage Upper Jaw(Not Applicable) - Cheikh Lane DMD s Extraction of Teeth 1-16(Not Applicable) - Cheikh Lane DMD Surgeon Cheikh Lane DMD Lead Nurse none Estimated Blood Loss 6 Findings Consistent with Post-Op Diagnosis acute infection grossly infected upper teeth Anesthesia Type General Complications none Disposition Accompanied Patient To Recovery: Yes
--- NOTE | 2025-02-07 10:45 | Anesthesiology Progress Note ---
Date of Service February 07, 2025 Anesthesia Post Procedure Vital Signs Vital Signs: Temp Pulse Pulse Resp BP Pulse Ox O2 Del Method 02/07/25 10:35 90 12 132/82 100 Nasal Cannula 02/07/25 10:25 88 13 131/75 98 Nasal Cannula 02/07/25 10:15 108 H 14 142/95 H 100 Oxymask 02/07/25 10:05 36 C L 92 H 16 137/77 100 Oxymask 02/07/25 07:45 36.6 C 61 16 98/63 L 98 Room Air 02/06/25 23:16 36.7 C 71 16 102/65 97 Room Air 02/06/25 14:48 36.9 C 65 18 106/67 100 Room Air O2 Flow Rate 02/07/25 10:35 2 02/07/25 10:25 2 02/07/25 10:15 8 02/07/25 10:05 8 02/07/25 07:45 02/06/25 23:16 02/06/25 14:48 Pain Intensity Right Jaw: Pain Intensity: 0 Upper Mouth: Pain Intensity: 3 Transfer of Care Handoff Completed per policy Notes Mental Status: alert / awake / arousable Patient Amnestic to Procedure: Yes Nausea / Vomiting: adequately controlled Pain: adequately controlled Airway Patency, RR, SpO2: stable & adequate BP & HR: stable & adequate Hydration State: stable & adequate Anesthetic Complications: no major complications apparent
--- NOTE | 2025-02-07 13:19 | Hospitalist Progress Note ---
Date of Service February 07, 2025 Assessment & Plan (1) Chronic dental infection: (2) Chronic dental pain: (3) Acute dehydration: (4) Anxiety: (5) Depression: Plan 24 year old woman with anxiety/depression who presents with worsening dental pains especially in the past week associated with inability to tolerate po. 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 Continue Welbutrin and Lexapro Counseled regarding vaping DVT ppx- SCD, Ambulate Code status- Full Admission and Anticipated Discharge Date Admission Date: February 05, 2025 Subjective 02/06/2025 The patient was seen and examined in the medical floor in presence of her father She has been feeling and he will get and the dental pain is less She ate her meals Denies any fever and/or chills and she will have dental surgery tomorrow 02/07/2025 The patient was seen and examined in medical floor She is status post incision and drainage of upper jaw and extraction of teeth 1- 16 on 02/07/2025 Complaining a lot of pain in the jaw and also in throat Has not been able to drink or eat anything as of yet Denies any other significant symptoms Review of Systems Review of Systems: All systems reviewed and are unremarkable except as noted below Physical Exam Physical Exam: Sitting on the bed with acute distress due to pain in jaw and throat Constitutional: + ill appearing and average body habitus Eyes: PERRL, conjunctivae normal, anicteric sclerae ENMT: external ear and nose normal, oropharynx normal Neck: trachea midline, no thyromegaly Respiratory: no respiratory distress Auscultation: lungs clear to auscultation bilaterally Cardiovascular: Rate/Rhythm: regular rate and regular rhythm; not tachycardic Heart Sounds: normal S1 and normal S2; no murmur Extremities: no edema Gastrointestinal (Abdomen): Inspection/Auscultation: normal bowel sounds; abdomen not distended Percussion/Palpation: abdomen soft; abdomen nontender Musculoskeletal: No acute arthritis involving any of the joint Neurologic: normal touch/pain/proprioception and moves all extremities; no focal motor deficits Lymphatic: no cervical or axillary lymphadenopathy Results & Data Results & Data Vital Signs (Past 12 Hours) Vital Signs Temp Pulse Pulse Resp BP Pulse Ox O2 Del Method 02/07/25 12:34 36.9 C 84 14 137/82 95 Room Air 02/07/25 11:55 36.6 C 68 15 137/82 97 Room Air 02/07/25 11:27 36.5 C 73 15 127/77 98 Room Air 02/07/25 11:00 81 12 135/84 97 Room Air 02/07/25 10:45 36.5 C 81 12 135/85 100 Room Air 02/07/25 10:35 90 12 132/82 100 Nasal Cannula 02/07/25 10:25 88 13 131/75 98 Nasal Cannula 02/07/25 10:15 108 H 14 142/95 H 100 Oxymask 02/07/25 10:05 36 C L 92 H 16 137/77 100 Oxymask 02/07/25 07:45 36.6 C 61 16 98/63 L 98 Room Air O2 Flow Rate 02/07/25 12:34 02/07/25 11:55 02/07/25 11:27 02/07/25 11:00 02/07/25 10:45 02/07/25 10:35 2 02/07/25 10:25 2 02/07/25 10:15 8 02/07/25 10:05 8 02/07/25 07:45 Medications Administered Current Inpatient Medications Acetaminophen (Acetaminophen Susp 325 Mg/10.15 Ml Udc) 650 mg PO Q6H PRN PRN Reason: Mild to moderate pain Stop: 03/07/25 17:02 Last Admin: 02/06/25 21:04 Dose: 650 mg Acetaminophen (Acetaminophen 325 Mg Tab) 650 mg PO Q6H PRN PRN Reason: Pain & Pre PT Stop: 03/09/25 09:56 Bupropion HCl (Bupropion Xl 300 Mg Tabcr) 300 mg PO QAM [facility] Stop: 03/08/25 08:59 Last Admin: 02/06/25 07:53 Dose: 300 mg Chlorhexidine Gluconate (Chlorhexidine Gluconate 0.12% 480 Ml) 15 ml MT Q12 PRN PRN Reason: Prophylaxis Stop: 03/07/25 16:42 Last Admin: 02/06/25 07:59 Dose: 15 ml Escitalopram Oxalate (Escitalopram Oxalate 10 Mg Tab) 5 mg PO DAILY [facility] Stop: 03/08/25 08:59 Last Admin: 02/06/25 07:53 Dose: 5 mg Hydromorphone HCl (Hydromorphone Inj 0.5 Mg/0.5 Ml Syr) 0.5 mg IV Q4H PRN PRN Reason: Mod-Sev Pain (Scale 4-10) Stop: 02/21/25 06:27 Last Admin: 02/07/25 12:16 Dose: 0.5 mg Lactated Ringer's (Lr) 1,000 mls @ 80 mls/hr IV .[id number] [facility] Stop: 02/08/25 17:00 Last Infusion: 02/07/25 12:14 Dose: 80 mls/hr Ampicillin Sodium/Sulbactam Sodium (Unasyn) 3,000 mg in 100 mls @ 200 mls/hr IV Q6H [facility] Stop: 02/15/25 17:59 Last Admin: 02/07/25 12:59 Dose: 200 mls/hr Oxycodone HCl (Oxycodone Hcl Ir 5 Mg Tab (Immediate Release)) 5 mg PO Q6H PRN PRN Reason: Mod-Sev Pain (Scale 4-10) Stop: 02/20/25 22:28 Last Admin: 02/06/25 22:38 Dose: 5 mg Oxycodone HCl (Oxycodone Hcl Ir 5 Mg Tab (Immediate Release)) 5 mg PO Q4H PRN PRN Reason: MODERATE Pain (4,5,6) & Pre PT Stop: 02/21/25 09:56 Last Admin: 02/07/25 13:14 Dose: 5 mg
[2025-02-07 18:33] VITALS: RESP 16
[2025-02-08] MEDS ORDERED: Nursing to Pharmacy Communication SCH (03:45)
[2025-02-08 07:21] VITALS: BP 107/69; PULSE 69; TEMP 98.1; O2SAT 97
--- NOTE | 2025-02-08 12:22 | Hospitalist Progress Note ---
Date of Service February 08, 2025 Assessment & Plan (1) Chronic dental infection: (2) Chronic dental pain: (3) Acute dehydration: (4) Anxiety: (5) Depression: Plan 24 year old woman with anxiety/depression who presents with worsening dental pains especially in the past week associated with inability to tolerate po. Dental infection Small periapical cyst--POA Right maxillary sinusitis--POA S/P I&D upper jaw by Dr. Lane on 02/07/2025 --Face CT:Small periapical cyst related to the root of the left medial incisor. Mild right maxillary sinusitis. Otherwise essentially normal CT of the maxillofacial region with and without contrast. No large dental lesion or soft tissue abscesses. Pain control as needed Liquid diet for now Appreciate oromaxillary surgery input IV Unasyn to be transition to oral antibiotics on discharge to complete the course Advised to follow-up with oral surgeon on discharge as recommended Continue oral hygiene Mood disorder Continue Welbutrin and Lexapro Counseled regarding vaping DVT Px: SCD, Ambulate Code status Full Code Admission and Anticipated Discharge Date Admission Date: February 05, 2025 Subjective Patient is seen and examined at bedside States that her dental pain is better when compared to yesterday Tolerating current diet Family at bedside Denies any chest pain, dyspnea, nausea, vomiting, abdominal pain Plan to be discharged home today Review of Systems Review of Systems: All systems reviewed & are unremarkable except as noted in Subjective Physical Exam Physical Exam: Physical Exam: Vitals signs as noted above General Appearance: Thin, frail, no apparent distress Head: normocephalic, Atraumatic, + mild jaw tenderness Eyes: normal inspection, EOMI Neck: supple, Trachea midline Respiratory/Chest: Normal breath sounds, CTA, No accessory muscle use Cardiovascular: S1, S2, No murmur Abdomen/GI:Soft, Non tender, Bowel sounds present Extremities/Musculoskeletal:normal inspection, no edema Neurologic/Psych:AAOX3, grossly no focal neurological deficits Skin: normal color, warm Results & Data Results & Data Vital Signs (Past 12 Hours) Vital Signs Temp Pulse Resp BP Pulse Ox O2 Del Method 02/08/25 07:20 36.7 C 69 16 107/69 97 Room Air 02/08/25 03:00 36.4 C L 56 L 16 100/65 100 Room Air
--- NOTE | 2025-02-08 13:04 | Discharge Summary ---
Date of Service February 08, 2025 Admission HPI Per Admitting Provider 24 year old woman with anxiety/depression who presents with worsening teeth pains. Has had dental infection for months Patient has had chronic dental carries and infection for which she follows Dr Lane. She reports that pain is mostly in upper teeth and has worsened in the past week to the point that she does not tolerate po. Only drinks fluids. Reports dehydration and feeling dizzy Denied fever, chills, nausea, vomiting, abd pain. Denied chest pain, cough and shortness of breath. She had called Dr Lane's office multiple times in the past week. Dr Lane was supposed to see her on Thursday but has called twice over this weekend and Dr Lane recommends admission for IV fluids and appropriate antibiotics for possible surgery on Thursday or Patient vapes Denied alcohol or illicit drug use Denied any allergies Admission Exam Per Admitting Provider Constitutional: no acute distress Eyes: PERRL, conjunctivae normal, anicteric sclerae ENMT: Poor dentition with multiple broken teeth Respiratory: normal respiratory effort, lungs clear to auscultation Cardiovascular: Rate/Rhythm: regular rate and regular rhythm Gastrointestinal (Abdomen): normal bowel sounds, soft, nontender, no hepatosplenomegaly Musculoskeletal: No pedal edema Neurologic: PERRL, EOMI, accommodation nl, no face palsy, no dysarthria Psychiatric: A+Ox3, euthymic affect Principal Diagnosis Dental infection Small periapical cyst--POA Right maxillary sinusitis--POA Discharge Data Allergies Allergy/AdvReac Type Severity Reaction Status Date / Time No Known Allergies Allergy Verified 10/13/24 12:59 Consultations 02/05/25 15:16 Consult Oromaxillofacial Surgery Routine 02/05/25 15:37 ED Decision to Admit Stat Procedures Performed Operation Date: 02/07/25 08:40 Actual Procedures p Incision and Drainage Upper Jaw(Not Applicable) - Cheikh Lane DMD s Extraction of Teeth 1-16(Not Applicable) - Cheikh Lane DMD Ordered Studies Laboratory Results WBC 5.28 K/ul (4.8-10.8) 02/06/25 07:08 RBC 3.75 M/uL (4.20-5.40) L 02/06/25 07:08 Hgb 11.3 g/dl (12.0-16.0) L 02/06/25 07:08 Hct 34.8 % (37.0-47.0) L 02/06/25 07:08 MCV 92.8 fL (80.0-100.0) 02/06/25 07:08 MCH 30.1 pg (25.0-34.0) 02/06/25 07:08 MCHC 32.5 g/dL (32.0-36.0) 02/06/25 07:08 RDW Std Deviation 40.7 fL (36.4-46.3) 02/06/25 07:08 RDW Coeff of La 11.9 % (11.5-14.5) 02/06/25 07:08 Plt Count 213 K/uL (130-400) 02/06/25 07:08 MPV 8.9 fL (9.4-12.4) L 02/06/25 07:08 Immature Gran % (Auto) 0.3 % 02/05/25 Unknown Neut % (Auto) 66.7 % 02/05/25 Unknown Lymph % (Auto) 24.3 % 02/05/25 Unknown [place] % (Auto) 6.7 % 02/05/25 Unknown Eos % (Auto) 1.3 % 02/05/25 Unknown Baso % (Auto) 0.7 % 02/05/25 Unknown Neut # (Auto) 5.11 K/uL (1.40-6.50) 02/05/25 Unknown Lymph # (Auto) 1.86 K/uL (1.20-3.40) 02/05/25 Unknown [place] # (Auto) 0.51 K/uL (0.11-0.59) 02/05/25 Unknown Eos # (Auto) 0.10 K/uL (0.00-0.50) 02/05/25 Unknown Baso # (Auto) 0.05 K/uL (0.00-0.20) 02/05/25 Unknown Immature Gran # (Auto) 0.02 K/uL (0.01-0.20) 02/05/25 Unknown Sodium 140 mmol/L (136-145) 02/06/25 07:08 Potassium 3.8 mmol/L (3.5-5.1) 02/06/25 07:08 Chloride 108 mmol/L (98-107) H 02/06/25 07:08 Carbon Dioxide 27 mmol/L (21-32) 02/06/25 07:08 Anion Gap 5 (3-11) 02/06/25 07:08 BUN 16 mg/dl (6-23) 02/06/25 07:08 Creatinine 0.64 mg/dl (0.6-1.2) 02/06/25 07:08 Est Cr Clr Drug Dosing 101.6 ml/min 02/06/25 07:08 eGFR 128.06 02/06/25 07:08 BUN/Creatinine Ratio 25.0 (10-20) H 02/06/25 07:08 Glucose 82 mg/dl (70-99(Fasting)) 02/06/25 07:08 Calcium 8.9 mg/dl (8.6-10.3) 02/06/25 07:08 Total Bilirubin 0.8 mg/dl (0.2-1.0) 02/05/25 Unknown AST 13 U/L (13-39) 02/05/25 Unknown ALT 7 U/L (7-52) 02/05/25 Unknown Alkaline Phosphatase 75 U/L (34-104) 02/05/25 Unknown Total Protein 7.6 gm/dl (6.0-8.3) 02/05/25 Unknown Albumin 4.7 gm/dl (3.4-5.0) 02/05/25 Unknown Globulin 2.9 gm/dl (2.5-4.0) 02/05/25 Unknown Albumin/Globulin Ratio 1.6 (0.9-2) 02/05/25 Unknown Lipase 14 U/L (11-82) 02/05/25 Unknown HCG, Qual Negative (Negative) 02/05/25 Unknown Impressions Chest X-Ray 02/05/25 14:36 EXAM: X-ray chest one-view portable CLINICAL HISTORY: Chest pain not PRIORS: 10/09/2024, dating back to 2018 TECHNIQUE: Frontal view chest FINDINGS: The chest is well-expanded. No airspace consolidation, effusion or congestive changes. Heart size is normal. No pneumothorax. Trachea is patent. Osseous structures demonstrate no acute abnormality. No radiopaque foreign body. IMPRESSION: No plain film evidence of an acute cardiopulmonary process. Electronically signed by Caterina Alcantar 02-05-2025 4:13 PM Hospital Course (1) Chronic dental infection: (2) Chronic dental pain: (3) Acute dehydration: (4) Anxiety: (5) Depression: Plan 24 year old woman with anxiety/depression who presents with worsening dental pains especially in the past week associated with inability to tolerate po. Dental infection Small periapical cyst--POA Right maxillary sinusitis--POA S/P I&D upper jaw by Dr. Lane on 02/07/2025 --Face CT:Small periapical cyst related to the root of the left medial incisor. Mild right maxillary sinusitis. Otherwise essentially normal CT of the maxillofacial region with and without contrast. No large dental lesion or soft tissue abscesses. Pain control as needed Liquid diet for now Appreciate oromaxillary surgery input IV Unasyn to be transition to oral antibiotics on discharge to complete the course Advised to follow-up with oral surgeon on discharge as recommended Continue oral hygiene Mood disorder Continue Welbutrin and Lexapro Counseled regarding vaping DVT Px: SCD, Ambulate Code status Full Code Total Time Total Time Spent Total Time Spent (In Minutes): 52 minutes Discharge Plan Discharge Items Patient Disposition: Home - Self-Care Reason For Visit: DENTAL PAIN, INABILITY TO TOLERATE PO Discharge Diagnosis: s/p oral infection and infected upper teeth Condition on Discharge: Fair Activity: Resume your previous activity Lifting: Gradually increase as tolerated Bathing: No limitations Exercise/Sports: Gradually increase as tolerated Driving/Machine Use: Resume 1 day after discharge Weightbearing: Full weightbearing Non-emergency contact: Surgeon Call non-emergency contact if: you have any medication questions, your symptoms worsen, your pain is worsening, your temperature is above 101.5, your wound has increased redness, your wound has increased drainage and your wound pain has increased Follow-up/Referrals: Mer Sanchez PA-C [Primary Care Provider] - (Date & Time 02/13/2025 9:40 AM Provider: Josephine Mtz MD Family Medicine [facility] ) Cheikh Lane DMD [Physician] - 02/21/25 10:00 am Diet: Full liquid and Clear liquid Diet Texture: Pureed (blended smooth) Diet Comment: advance diet as tolerated Addtl Attending Provider Instructions: ADDITIONAL ACTIVITY RECOMMENDATIONS: * [place] teeth after every meal. It is very important to keep your mouth clean to prevent infection. * Starting tonight rinse with the Peridex as directed then 2 x a day * it is very important to keep well hydrated, this prevents fever and possible dry socket pain SPECIAL CARE INSTRUCTIONS: *It is not uncommon that between day 2-4 that your swelling will be at its worst this is very normal, do not be alarmed. * Keep ice on the side of your face for the next 24 to 36 hours. This will help keep the swelling down. * After 36 hours, apply heat (hot water bottle or heating pad) for the next two days, as often as possible. * Tomorrow start rinsing your mouth with 1/2 teaspoon salt in 8 ounces warm water. This rinse should be used every 4-6 hours. * You may experience slight nausea. To prevent this, never take your medication on an empty stomach. If nauseated, take small sips of girish randy until you feel better; then you may start on applesauce and toast. * A certain amount of bleeding is to be expected. It is often possible to control mild oozing by placing folded gauze over the area and biting down for 30 minutes. If you are unable to control excessive bleeding, call Dr Lane at [phone] * You may experience some discomfort for a few days. If pain or swelling increases, Call Dr Lane * Return to the office for a follow up check up on: ThursdayFeb 21 at 10 am * office address--[facility] Anuradha Huizar phone # [phone] Addtl Supervisor Insecticide Provider Instructions: -- Follow-up with your primary care physician in 1 week --Follow-up with your oral surgeon Dr. Lane as recommended -- Complete the antibiotic course as prescribed by your oral surgeon Seek immediate medical attention if your symptoms reoccur or worsen Please review medication list provided on discharge for any medication changes as instructed. Please call if you have any questions or problems. You can reach a [facility] hospitalist on duty at [facility] 24 hours a day by calling [phone] Pending Studies at Discharge: No Stand-Alone Forms: [facility], Smoking Cessation Medications and DC Order Prescriptions: New chlorhexidine gluconate 0.12 % Mouthwash 15 ml MT UD Qty: 1 0RF Rx Instructions: As directed Continued amoxicillin 500 mg capsule 500 mg PO Q8H PRN (Reason: oral surgery ) Qty: 14 0RF hydrocodone-acetaminophen 5-325 mg tablet 1 tab PO Q4H PRN (Reason: pain) Qty: 14 0RF ondansetron HCl 8 mg tablet 8 mg PO Q8H PRN (Reason: nausea and vomiting) Qty: 10 0RF escitalopram oxalate [Lexapro] 5 mg tablet 5 mg PO DAILY bupropion HCl [Wellbutrin XL] 300 mg tablet extended release 24 hr 300 mg PO QAM acetaminophen [Tylenol Extra Strength] 500 mg Tablet 500 mg PO Q6H PRN (Reason: PAIN/FEVER) ibuprofen 200 mg Tablet 200 mg PO Q6H PRN (Reason: PAIN/FEVER) Discharge Orders: Discharge Order (Routine); Ordered 02/08/25 Ordered By: Avila Townsend Admission Data Admit Date/Time: 02/05/25 16:07 Attending Provider: Avila Townsend Admit Provider: Deya Rogers I. Primary Care Provider: Mer Sanchez Other Providers: Cheikh Lane Valentine I. Other Interventions: Discharge Summary Assessment (RN) Last Done: 02/08/25 12:42
--- NOTE | 2025-02-09 15:28 | Operative Report ---
PG Post Operative Report Pre & Post Diagnosis Operation Date: 02/07/25 08:40 Pre-Op Diagnosis: Chronic dental infection, Pain, dental Post-Op Diagnosis: Chronic dental infection, Pain, dental I identified the patient and participated in the time-out.: Yes Procedure Operation Date: 02/07/25 08:40 Actual Procedures p Incision and Drainage Upper Jaw(Not Applicable) - Cheikh Lane DMD s Extraction of Teeth 1-16(Not Applicable) - Cheikh Lane DMD Surgeon Cheikh Lane DMD [place] House Supervisor none Estimated Blood Loss 6 Findings Consistent with Post-Op Diagnosis infection upper right and anterior palate infected and fractured teeth Specimens none Drains none Anesthesia Type General Complications none Disposition Accompanied Patient To Recovery: Yes Indications infection due to fractured and decayed teeth Description of Procedure Actual Procedures p Incision and Drainage right cheek/vestibular fold Abscess Incision and Drainage anterior palate abscess Removal of Tooth all grossly infected upper teeth # 1-16 Alveoplasty upper arch Cheikh Lane DMD Diagnoses Toothache K08.89 Dental infection K04.7 Dehydration E86.0 Syncope R55 Failing root canal M27.59 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 As result she has had many infections and sinus problems. Her pain got so bad over the weekend that I asked her to come into the emergency room for an emergency admission to get this done. We are planning to do this electively but unfortunately she could not cope with the pain and discomfort. She was dehydrated as she was not able to eat or drink due to the pain and discomfort. She was admitted placed on IV antibiotics given hydration fluids and then set up to do the surgery on Thursday. Once cleared for surgery general anesthesia was achieved, the eyes were protected by the anesthesia dept criteria. A time out was take for patient ID, antibiotics, equipment and position verification once all agreed the procedure began. Local anesthesia using Marcaine with a vasoconstrictor ( 1.8 ml per site) given into maxilla A throat pack was placed after the oral cavity was irrigated with saline. Once a surgical level of anesthesia was obtained and the local anesthesia was given time for the blocks the surgery was started. I turned my attention to the swollen upper right vestibular infection. Incision and Drainage Using a 15 blade an incision was made lateral to the alveolar ridge and medial to the cheek. Once the incision was made a lot of pus extruded from the site. A curved hemostat was carefully placed into the infected space along the posterior maxilla. Some further drainage was now allowed to escape. I palpated the cheek and face and no further drainage was expressed. I now turned my attention to the palatal swelling. There was a fluctuant swelling behind the anterior maxillary teeth. This is a 15 blade I was able to incise the palatal tissue once incised with a periosteal elevator was used to reflect the periosteal tissue off the cyst and the palatal bone. In doing so a lot of purulent material escaped. I irrigated the flap trimmed the devitalized tissue to allow for a good closure at the time of suturing and turned my attention to now removing all of the maxillary teeth. The area was irrigated with at least 100 ml of NS solution. Simple extraction of maxillary teeth (teeth 1 -16,D7140) x 16 after local anesthesia was obtained in the upper jaw a periosteal elevator was used to reflect the mucoperiosteal tissue off all of the remaining teeth which is tooth numbers 1-16. Once this was accomplished the uneven bone was trimmed and smoothed and recontoured with the use of a large round bur. This loosened the bony attachments around the fractured teeth and roots which allowed me now to easily remove these teeth with a dental forceps. Upon removal of all these teeth I curetted each of the sockets to make sure that there was no dental soft tissue within the sockets. Now using the drill as well as a rongeur I was able to perform the alveoplasty of both the upper right and upper left quadrants. In doing so I recontour the ridge to allow this patient to have a denture in the future. A scissor was used to trim the irregular dental soft tissue and then with the use of a 2-0 and 3-0 chromic suture. I obtained a very nice anatomical closure. Upon completion of the case the infection was controlled there was no further drainage there was no bleeding the bony contours were smooth and we had obtained good soft tissue closure. At this time the operation was completed.Pre-op= impacted and infected wisdom teeth # 1,16,17,32 Once cleared for surgery general anesthesia was achieved, the eyes were protected by the anesthesia dept criteria.. A time out was take for patient ID, antibiotics, equipment and position verification once all agreed the procedure began. Local anesthesia was given into each area using Marcaine with a vasoconstrictor ( 1.8 ml per site). A throat pack was placed after the oral cavity was irrigated with saline. Once a surgical level of anesthesia was obtained and the local anesthesia was given time for the blocks the surgery was started. I turned my attention to the upper wisdom teeth first. Upper wisdom teeth CBI # 1 and 16 An Incision was made over the tuberosity. The full thickness flap was reflected, bone removed with a rogues , the tooth was visualized, it was close to the sinus and removed with an 81 elevator. Bony margins were trimmed, smoothed and sutured closed with a 2-0 chromic There was no sinus involvement. Lower wisdom teeth CBI # 17 and 32 The full thick Muco-periosteal flap was made on the external oblique ridge to avoid the lingual nerve. The flap was reflected to expose the impacted tooth. The drill with a round bur was used to remove bone, a fissure bur was used to split the tooth.The lingual plate was protected. The tooth was removed with a 301 elevator, the nerve was intact, there was no bleeding. The bone was trimmed, smoothed and the flap was closed with 2-0 chromic sutures. When all the wisdom teeth were removed I inspected the sites to insure all bleeding was controlled. I removed the throat pack and suctioned the throat. Bilateral gauze pressure dressings were placed. All instrument and sponge count was correct. The patient was allowed to awake from the anesthesia. Once full awake the anesthesia tube was removed and the patient was taken to the recovery room with all vital sign stable. The patient tolerated the surgery very well. I will follow the patient in my office, Rx and instructions will be given upon discharge. I removed the throat pack and suctioned the throat. Bilateral gauze pressure dressings were placed. All instrument and sponge count was correct. The patient was allowed to awake from the anesthesia. Once full awake the anesthesia tube was removed and the patient was taken to the recovery room with all vital sign stable. The patient tolerated the surgery very well. I will follow the patient in my office, Rx and instructions will be given upon discharge. I attest to the content of the Intraoperative Record and any orders documented therein. Any exceptions are noted below.
== END 2025-02-08 13:50 | disposition home or self-care (01) ==
LOC: ED 13:59 → INTOOBSV 16:07 → 3W 16:07 → SUATTDRO 16:07 → 3W 16:50